=== PATIENT | female | born 1955 | race Caucasian/White ===

== ENCOUNTER 2017-05-23 17:20 | Emergency (ER) | payer OTHER ==
[~2017-05-23] VITALS: Ht 160 cm; Wt 93.4 kg
[~2017-05-23 17:20] MED LIST: BNC20 PO; BUME1TAB PO; FEXO1TAB46 PO; FLV1 PO; GLC500 PO; INSU1INJ15 SC; INSUINJ14 SC; LEVO25TA5 PO; MTH25 PO; MULTTAB5 PO; ORENCIA IV; POTA20TA16 PO; RANI150T85 PO; SAXA1TAB64 PO; SIMV-151 PO; TNR25 PO; TRIA3AER NAE
[2017-05-23 17:22] VITALS: BP 181/102; PULSE 72; TEMP 36.4; O2SAT 97; Ht 160 cm; Wt 93.4 kg
[2017-05-23] MEDS ORDERED: DIAZEPAM 5MG TAB PO STA (17:49)
[2017-05-23] MEDS ORDERED: KETOROLAC TROMETHAMINE 30 MG/ML VIAL IV STA (17:49)
--- NOTE | 2017-05-23 18:26 | EMERGENCY ROOM VISIT NOTE ---
ED Visit Note First contact with patient: 17:25 CHIEF COMPLAINT: Back pain HISTORY OF PRESENTING ILLNESS: This is a 62-year-old female who presents to the emergency department with complaint of low back pain that started yesterday. She states that the pain is in the middle of her low back, radiates to both sides, into the buttocks, and down both legs to the ankles. She states that the pain is constant, aching and occasionally sharp worse with movement, better with rest, 8/10. She has not tried any medications, ice or heat therapy for the pain she reports a history of several back surgeries involving hardware in the past, her last surgery was in [address] Whiting. She reports chronic left leg pain and weakness secondary to nerve damage from previous back injury. She denies any new numbness or weakness of the legs, saddle paresthesias, bowel or bladder dysfunction, fevers or chills. She denies getting injections in the back. She denies any recent falls or other known injury to the back, no recent heavy lifting, bending, or twisting movements she can think of that may have caused her pain. She denies any associated headaches, neck pain, chest pain, shortness of breath, abdominal pain, nausea or vomiting, diarrhea or constipation, urinary symptoms, or rash. REVIEW OF SYSTEMS: A complete 10 point review of systems was reviewed with the patient with pertinent positives and negatives as per history of present illness. All else were negative. PAST MEDICAL HISTORY: Rheumatoid arthritis, hypertension, diabetes on insulin, GERD, hyperlipidemia, hypothyroidism SOCIAL HISTORY: Lives at home. Denies tobacco use. ALLERGIES: Reviewed in chart. Of note, she reports NSAIDs cause her to have stomach upset, she does not have a true allergy to NSAIDs. PHYSICAL EXAM: CONSTITUTIONAL: Pleasant and cooperative. No acute distress, but obviously uncomfortable and in pain. Otherwise well appearing and well nourished. HEENT: Normocephalic, atraumatic. Pupils equal, round and reactive to light, EOMI. TMs normal. Pharynx normal. NECK: Supple, full active range of motion without discomfort. RESPIRATORY: Clear to auscultation bilaterally with no wheezing, crackles, rhonchi or stridor. Equal expansion bilaterally. CARDIOVASCULAR: Regular rate and rhythm with no murmurs, rubs or gallops. Normal peripheral perfusion. No edema. GASTROINTESTINAL: Soft, nontender, nondistended. No palpable masses or HSM. Bowel sounds present in all quadrants. MUSCULOSKELETAL: No muscle atrophy, erythema, or edema noted of the back. There is midline tenderness over the lumbar spinous processes. There is moderate tenderness over the paraspinous muscles bilaterally. There is no tenderness over the thoracic spine or paraspinous muscles. There are mild muscle spasms present. The patient is slow to move around with maximum tenderness with bending or twisting at the waist. Positive straight leg raise test bilaterally. INTEGUMENTARY: No rash or other significant dermatologic conditions noted. NEUROLOGIC: Alert and oriented X 4 with normal affect. No focal neurologic deficits noted. Normal sensation to light and sharp touch. Deep tendon reflexes 2+ in the lower extremities. Dorsalis pedis pulse 2+ bilaterally. Strength 5/5 and equal in the bilateral lower extremities. ED COURSE AND MEDICAL DECISION MAKING: CC: Patient presenting with complaint of low back pain DIFFERENTIAL DIAGNOSIS: Includes, but not limited to lumbar radiculopathy, sciatica, back spasm, lumbar sprain/strain, disc herniation, degenerative disc disease, surgical hardware malfunction, fracture, subluxation, among others. INTERPRETATION OF LABS: No leukocytosis, no anemia, no significant electrolyte abnormalities. UA negative. IMAGING: LUMBAR SPINE WITHOUT CT DOSE: 628.79 mGycm HISTORY: Pain Low back pain, Hx multiple surgeries, eval hardware TECHNIQUE: Multiaxial CT images of the lumbar spine were performed and reformatted in the sagittal and coronal plane without the use of contrast. A dose lowering technique was utilized adhering to the principles of ALARA. COMPARISON: 10/10/2013 FINDINGS: Similar exam compared to the prior study. Extensive postoperative changes from L2 through S1. All hardware appears to be intact and unchanged. Bony alignment is unchanged. There is no evidence for new interval or progressive process. Paraspinal soft tissues are considered unremarkable. Degenerative disc change throughout is considered stable and nonprogressive. IMPRESSION: 1. Degenerative and postoperative changes throughout the entire lumbar region. 2. All hardware is intact. 3. This study is considered to be a duplicate of the prior exam with no interval change. MEDICATION RECONCILIATION: I attest that I have personally reviewed the patient 's current medication list. INITIAL VITAL SIGNS REVIEW: I reviewed the patient's initial vital signs and interpret them as follows: T: Afebrile; BP: Hypertensive; HR: Within normal limits; RR: Within normal limits; Pulse Ox: Within normal limits on room air. Blood pressure screening: The patient was found to have an elevated blood pressure and was referred to their primary doctor for recheck and further treatment. SUMMARY: Patient was evaluated at bedside, history and physical exam performed. Patient is alert and oriented, no acute distress, but is slow to move during exam and is notably in pain, resting calmly on the stretcher. Neurologically intact on exam. Weakness of the left leg that patient reports is her baseline and not worse. Orders were placed at bedside for labs, UA, IV Toradol and PO Valium, CT lumbar spine to evaluate surgical hardware and any other abnormalities. Patient discussed with Dr. Alatorre, who agrees with my assessment and plan. Labs and imaging reviewed as above, no acute abnormality found. Patient reassessed multiple times throughout ED stay, she reports that her pain is improved after medications. Patient was updated on all results and plan for discharge, she was encouraged to follow closely with her primary care provider as well as her orthopedic spine surgeon. Rx for tramadol to manage her pain, as she states she is unable to take NSAIDs or steroids. She was encouraged to take Tylenol and use tramadol for breakthrough pain. Patient was provided with patient was also given strict return precautions should her symptoms worsen, she verbalized understanding. Patient was discharged home in good condition and ambulatory. Upon my review of vital signs, I discovered that the patient was discharged home without having repeat vital signs performed. The patient was informed of her elevated blood pressure during her stay, which was felt to be in part due to her pain, and she was encouraged to follow up with her PCP for recheck of her blood pressure. She did not endorse any concerning symptoms of chest pain, shortness of breath, headache, dizziness, vision changes, nausea or vomiting during her stay. Current/Historical Medications Scheduled Adalimumab (Humira Pen), 250 MG INJ UD Amitriptyline HCl (Amitriptyline HCl), 1 TAB PO DAILY Amlodipine (Norvasc), 5 MG PO DAILY Atorvastatin (Lipitor), 10 MG PO DAILY Bumetanide (Bumex), 1 MG PO DAILY Calcium Carbonate-Cholecalcife (Caltrate 600+D), 1 TAB PO BID Celecoxib (CeleBREX), 200 MG PO DAILY Cyclobenzaprine Hcl (Flexeril), 10 MG PO HS Diclofenac Sodium (Topical) (Voltaren 1% Top Gel), 1 APPLN TOP QID Glimepiride (Glimepiride), 1 TAB PO DAILY Insulin Aspart (Novolog), UNITS SC WM Insulin Detemir (Levemir), 30 UNITS SC QPM Levothyroxine Sodium (Synthroid), 25 MCG PO DAILY Losartan Potassium (Cozaar), 100 MG PO DAILY Metformin HCl (Metformin HCl), 1 TAB PO BID Metoprolol Tartrate (Lopressor) (Lopressor), 50 MG PO BID Multiple Vitamins W/ Minerals (Centrum Silver), 1 TAB PO DAILY Pantoprazole (Protonix), 40 MG PO TID Potassium Ext Rel (Klor-Con), 20 MEQ PO BID Scheduled PRN Hydrocodone/Acetaminophen 5MG/325MG (Delmar 5MG/325MG), 1 TABLET PO Q4 PRN for Pain Ondansetron Hcl (Zofran), 4 MG PO Q8 PRN for Nausea Tramadol (Ultram), 50 MG PO Q6H PRN for svr Allergies Coded Allergies: Pregabalin (Verified Allergy, Severe, SWELLING, 05/23/17) Rofecoxib (Verified Allergy, Unknown, RASH, 05/23/17) Meloxicam (Unverified Adverse Reaction, Unknown, ., 05/23/17) NSAIDs (Verified Adverse Reaction, Unknown, gi problems, 05/23/17) Vital Signs Date Time Temp Pulse Resp B/P (MAP) Pulse Ox O2 Delivery O2 Flow Rate FiO2 05/23/17 17:22 36.4 72 18 181/102 97 Room Air Laboratory Results 05/23/17 18:12 Red Blood Count 4.62, Mean Corpuscular Volume 79.4, Mean Corpuscular Hemoglobin 27.5, Mean Corpuscular Hemoglobin Concent 34.6, Mean Platelet Volume 9.4, Neutrophils (%) (Auto) 59.5, Lymphocytes (%) (Auto) 25.9, Monocytes (%) (Auto) 9.1, Eosinophils (%) (Auto) 4.0, Basophils (%) (Auto) 1.3, Neutrophils # (Auto) 2.69, Lymphocytes # (Auto) 1.17, Monocytes # (Auto) 0.41, Eosinophils # (Auto) 0.18, Basophils # (Auto) 0.06 05/23/17 18:12 Test 05/23/17 18:12 White Blood Count 4.52 K/uL (4.8-10.8) Red Blood Count 4.62 M/uL (4.2-5.4) Hemoglobin 12.7 g/dL (12.0-16.0) Hematocrit 36.7 % (37-47) Mean Corpuscular Volume 79.4 fL (80-100) Mean Corpuscular Hemoglobin 27.5 pg (25-34) Mean Corpuscular Hemoglobin Concent 34.6 g/dl (32-36) Platelet Count 160 K/uL (130-400) Mean Platelet Volume 9.4 fL (7.4-10.4) Neutrophils (%) (Auto) 59.5 % Lymphocytes (%) (Auto) 25.9 % Monocytes (%) (Auto) 9.1 % Eosinophils (%) (Auto) 4.0 % Basophils (%) (Auto) 1.3 % Neutrophils # (Auto) 2.69 K/uL (1.4-6.5) Lymphocytes # (Auto) 1.17 K/uL (1.2-3.4) Monocytes # (Auto) 0.41 K/uL (0.11-0.59) Eosinophils # (Auto) 0.18 K/uL (0-0.5) Basophils # (Auto) 0.06 K/uL (0-0.2) RDW Standard Deviation 42.8 fL (36.4-46.3) RDW Coefficient of Variation 14.8 % (11.5-14.5) Immature Granulocyte % (Auto) 0.2 % Immature Granulocyte # (Auto) 0.01 K/uL (0.00-0.02) Urine Color YELLOW Urine Appearance CLOUDY (CLEAR) Urine pH 6.0 (4.5-7.5) Urine Specific [place] 1.017 (1.000-1.030) Urine Protein NEG (NEG) Urine Glucose (UA) 1+ (NEG) Urine Ketones NEG (NEG) Urine Occult Blood NEG (NEG) Urine Nitrite NEG (NEG) Urine Bilirubin NEG (NEG) Urine Urobilinogen POS (NEG) Urine Leukocyte Esterase NEG (NEG) Urine WBC (Auto) 1-5 /hpf (0-5) Urine RBC (Auto) 0-4 /hpf (0-4) Urine Hyaline Casts (Auto) 0 /lpf (0-5) Urine Epithelial Cells (Auto) >30 /lpf (0-5) Urine Bacteria (Auto) NEG (NEG) Urine Pathogenic Casts /lpf (0) Anion Gap 5.0 mmol/L (3-11) Est Creatinine Clear Calc Drug Dose 65.1 ml/min Estimated GFR () 72.9 Estimated GFR (Non- 62.9 BUN/Creatinine Ratio 14.9 (10-20) Calcium Level 9.3 mg/dl (8.5-10.1) Medications Administered Medications (Trade) Dose Ordered Sig/Zhao Route Start Time Stop Time Status Last Admin Dose Admin Ketorolac Tromethamine (Toradol Inj) 15 mg NOW STAT IV 05/23/17 17:49 05/23/17 17:53 DC 05/23/17 18:20 15 MG Diazepam (Valium Tab) 10 mg NOW STAT PO 05/23/17 17:49 05/23/17 17:53 DC 05/23/17 17:49 10 MG Tramadol HCl (Ultram Home Pack) 1 homepack UD ONCE PO 05/23/17 20:00 05/23/17 20:01 DC 05/23/17 20:00 1 HOMEPACK Tramadol HCl (Ultram Tab) 50 mg NOW STAT PO 05/23/17 19:47 05/23/17 19:49 DC 05/23/17 20:36 50 MG Departure Information Impression Primary Impression: Lumbar radiculopathy, acute Dispostion Home / Self-Care Condition GOOD Prescriptions Tramadol (Ultram) 50 Mg Tab 50 MG PO Q6H Y for svr, #12 TAB Prov: Christina Walters, SENIOR LINUX SYSTEMS ADMINISTRATOR 05/23/17 Referrals Pierre Castro D.O. (PCP) Abdirahman Whiting D.O. Patient Instructions ED Back Care Tips, ED Exercises Lumbar Muscles, ED Sciatica, [facility] Additional Instructions You have been treated in the Emergency Department your back pain. Laboratory results and imaging studies have ruled out any emergent causes for your symptoms which would warrant admission or surgery. Take it easy for the next few days, no strenuous activity, heavy lifting, or bending/twisting motions, to allow your back to rest. Alternate heat and ice for comfort. After heat, you may do gentle stretching and massage to the low back. You have been prescribed tramadol to be used 1 tablet every 6 hours as needed for SEVERE pain. This medication may make you drowsy, do not drive, operate machinery, or drink alcohol while you are taking. This medication is a controlled substance and cannot be refilled by the emergency department. If you need additional pain medication beyond what has been prescribed today, you will need to see your primary care provider or orthopedic surgeon. For pain control, you can use the following [id number] medicines (if >12 yo): - Regular strength (325mg/tab) Tylenol (acetaminophen) 2 tabs every 4-6 hours as needed. Do not exceed 10 tablets in a 24 hour period. Avoid taking more than 3000 mg of Tylenol per day. This includes any other sources of acetaminophen you may take on a regular basis. Please follow-up with your primary care provider and your orthopedic spine surgeon, Dr. Whiting, in the next few days if your back pain is not improving. You may benefit from physical therapy. Please return to the ER if any problems with bowel or bladder function, numbness in your groin, high fevers, severe abdominal pain or worsening back pain, or if loss of feeling/movement of legs. Work Instructions Return To Work: 2 days
[2017-05-23 18:33] LABS: BASO % 1.3 %; BASO ABS # 0.06 K/uL (0-0.2); EOS ABS # 0.18 K/uL (0-0.5); HEMATOCRIT 36.7 % (37-47); HEMOGLOBIN 12.7 g/dL (12.0-16.0); IG# 0.01 K/uL (0.00-0.02); LYMPH % 25.9 %; LYMPH ABS # 1.17 K/uL (1.2-3.4); MEAN CELL VOLUME 79.4 fL (80-100); MEAN CORPUSCULAR HEMOGLOBIN 27.5 pg (25-34); MEAN CORPUSCULAR HGB CONC 34.6 g/dl (32-36); MEAN PLATELET VOLUME 9.4 fL (7.4-10.4); MONO % 9.1 %; MONO ABS # 0.41 K/uL (0.11-0.59); NEUT % 59.5 %; NEUT ABS # 2.69 K/uL (1.4-6.5); PLATELET COUNT 160 K/uL (130-400); RED CELL DISTRIBUTION WIDTH CV 14.8 % (11.5-14.5); RED CELL DISTRIBUTION WIDTH SD 42.8 fL (36.4-46.3); WHITE BLOOD COUNT 4.52 K/uL (4.8-10.8)
[2017-05-23] MEDS ORDERED: CYCL10TA6 PO (18:41)
[2017-05-23] MEDS ORDERED: GLC/500 PO (18:41)
[2017-05-23] MEDS ORDERED: LVMI SC (18:41)
[2017-05-23] MEDS ORDERED: ONDA4TAB46 PO (18:41)
[2017-05-23] MEDS ORDERED: NVLG SC (18:41)
[2017-05-23] MEDS ORDERED: HYDR-5688 PO (18:41)
[2017-05-23] MEDS ORDERED: POTA20TA16 PO (18:41)
[2017-05-23] MEDS ORDERED: DICL1GEL12 TOP (18:41)
[2017-05-23] MEDS ORDERED: LOSA1TAB38 PO (18:41)
[2017-05-23] MEDS ORDERED: AMT10 PO (18:41)
[2017-05-23] MEDS ORDERED: PANT40TA PO (18:41)
[2017-05-23] MEDS ORDERED: MULTCHW PO (18:41)
[2017-05-23] MEDS ORDERED: METO50TA16 PO (18:41)
[2017-05-23] MEDS ORDERED: CLB/200 PO (18:41)
[2017-05-23] MEDS ORDERED: BUME1TAB PO (18:41)
[2017-05-23] MEDS ORDERED: ATOR10TA82 PO (18:41)
[2017-05-23] MEDS ORDERED: AMLO-110 PO (18:41)
[2017-05-23] MEDS ORDERED: CALC-354 PO (18:41)
[2017-05-23] MEDS ORDERED: ADAL40KI INJ (18:41)
[2017-05-23] MEDS ORDERED: LEVO25TA PO (18:41)
[2017-05-23] MEDS ORDERED: GLIM4TAB2 PO (18:43)
[2017-05-23] MEDS ORDERED: METF850T10 PO (18:43)
--- NOTE | 2017-05-23 18:48 | DIAGNOSTIC IMAGING REPORT ---
LUMBAR SPINE WITHOUT CT DOSE: 628.79 mGycm HISTORY: Pain Low back pain, Hx multiple surgeries, eval hardware TECHNIQUE: Multiaxial CT images of the lumbar spine were performed and reformatted in the sagittal and coronal plane without the use of contrast. A dose lowering technique was utilized adhering to the principles of ALARA. COMPARISON: 10/10/2013 FINDINGS: Similar exam compared to the prior study. Extensive postoperative changes from L2 through S1. All hardware appears to be intact and unchanged. Bony alignment is unchanged. There is no evidence for new interval or progressive process. Paraspinal soft tissues are considered unremarkable. Degenerative disc change throughout is considered stable and nonprogressive. IMPRESSION: 1. Degenerative and postoperative changes throughout the entire lumbar region. 2. All hardware is intact. 3. This study is considered to be a duplicate of the prior exam with no interval change. The above report was generated using voice recognition software. It may contain grammatical, syntax or spelling errors. Electronically signed by: Jensen Lion M.D. 05/23/2017 6:47 PM Dictated Date/Time: 05/23/2017 6:43 PM
[2017-05-23 18:50] LABS: CALCIUM 9.3 mg/dl (8.5-10.1); CREATININE 0.96 mg/dl (0.60-1.20); POTASSIUM 3.8 mmol/L (3.5-5.1)
[2017-05-23] MEDS ORDERED: TRAM-10 PO (19:45)
[2017-05-23] MEDS ORDERED: TRAMADOL HCL 50 MG TAB PO STA (19:47)
--- NOTE | 2017-05-23 19:51 | EMERGENCY ROOM VISIT NOTE ---
ED Visit Note First contact with patient: 17:25 Patient seen and evaluated following discussion with the ENTRY TABLE OPERATOR. Patient aware of the results was agreeable with close follow-up with her spine surgeon. Patient will have an INR performed due to spinal stimulator. Patient with a long-standing history of low back pain as well as paresthesias. No other evidence of urinary or GI pathology. Labs reassuring, vital signs stable. Patient comfortable with evaluation here as well as plan for discharge with follow-up as an outpatient.
[2017-05-23] MEDS ORDERED: TRAMADOL HCL 50 MG HOME PACK PO ONE (20:00)
== END 2017-05-23 20:38 | disposition home or self-care (01) ==
LOC: C.EDB 17:21 → C.EDC 20:38
DX: M54.16 Radiculopathy, lumbar region (principal); M79.605 Pain in left leg; G89.29 Other chronic pain; I10 Essential (primary) hypertension; E11.9 Type 2 diabetes mellitus without complications; E78.5 Hyperlipidemia, unspecified; E03.9 Hypothyroidism, unspecified; M06.9 Rheumatoid arthritis, unspecified; K21.9 Gastro-esophageal reflux disease without esophagitis; Z79.4 Long term (current) use of insulin; Z79.84 Long term (current) use of oral hypoglycemic drugs; Z88.8 Allergy status to other drugs, medicaments and biological substances; Z88.6 Allergy status to analgesic agent; Z96.9 Presence of functional implant, unspecified

== ENCOUNTER 2017-06-03 15:28 | Emergency (ER) | payer OTHER ==
[~2017-06-03] VITALS: Ht 160 cm; Wt 92.0 kg
[~2017-06-03 15:28] MED LIST changes: +ADAL40KI INJ; -BNC20 PO; -BUME1TAB PO; -FEXO1TAB46 PO; -FLV1 PO; -GLC500 PO; -INSU1INJ15 SC; -INSUINJ14 SC; -LEVO25TA5 PO; -MTH25 PO; -MULTTAB5 PO; -ORENCIA IV; -POTA20TA16 PO; -RANI150T85 PO; -SAXA1TAB64 PO; -SIMV-151 PO; -TNR25 PO; +TRAM-10 PO; -TRIA3AER NAE
[2017-06-03 15:47] VITALS: TEMP 36.3; Ht 160 cm; Wt 92.0 kg
[2017-06-03] MEDS ORDERED: ONDANSETRON INJ 2 MG/ML 2 ML VIAL IV STA (16:38)
[2017-06-03] MEDS ORDERED: SODIUM CHLORIDE 0.9% 1000ML 1,000 ML IV STA (16:38)
[2017-06-03] MEDS ORDERED: HYDROmorphone INJ 1 MG/ML SYR IV STA (16:38)
[2017-06-03] MEDS ORDERED: SODIUM CHLORIDE 0.9% 1000ML 250 ML IV STA (16:38)
--- NOTE | 2017-06-03 16:53 | DIAGNOSTIC IMAGING REPORT ---
CHEST ONE VIEW PORTABLE CLINICAL HISTORY: CHEST PAIN dyspnea COMPARISON STUDY: No previous studies for comparison. FINDINGS: Minimal platelike atelectasis left base. Lungs otherwise appear clear. Diaphragms are smooth. There is a bio stimulator overlying the low thoracic region. IMPRESSION: Minimal platelike atelectasis left base. Otherwise negative study. The above report was generated using voice recognition software. It may contain grammatical, syntax or spelling errors. Electronically signed by: Jensen Lion M.D. 06/03/2017 4:52 PM Dictated Date/Time: 06/03/2017 4:51 PM
[2017-06-03 17:26] LABS: BASO % 1.7 %; EOS % 3.6 %; EOS ABS # 0.22 K/uL (0-0.5); HEMATOCRIT 35.3 % (37-47); HEMOGLOBIN 12.2 g/dL (12.0-16.0); IG# 0.03 K/uL (0.00-0.02); LYMPH % 20.7 %; LYMPH ABS # 1.25 K/uL (1.2-3.4); MEAN CORPUSCULAR HEMOGLOBIN 27.3 pg (25-34); MEAN CORPUSCULAR HGB CONC 34.6 g/dl (32-36); MEAN PLATELET VOLUME 8.8 fL (7.4-10.4); MONO % 7.3 %; MONO ABS # 0.44 K/uL (0.11-0.59); NEUT % 66.2 %; PLATELET COUNT 217 K/uL (130-400); RED CELL DISTRIBUTION WIDTH CV 14.1 % (11.5-14.5); WHITE BLOOD COUNT 6.04 K/uL (4.8-10.8)
--- NOTE | 2017-06-03 17:44 | EMERGENCY ROOM VISIT NOTE ---
History Report prepared by Adwoa: Nancie Hammonds Under the Supervision of: Dr. Hoang Mckeon M.D. First contact with patient: 16:22 Chief Complaint: ABDOMINAL PAIN Stated Complaint: PAIN, PRESSURE IN ABDOMIN AND ENTIRE BODY Nursing Triage Summary: Patient presents to triage via wheelchair, states "I was here a week ago Friday with a lot of pain in my lower back and legs. Today, the pain is all over, even up into my shoulders. I haven't had complete relief since I was seen here. I am having a lot of pressure in my lower abdomen and rectum that started today. I haven't been eating much." Last BM was "a little bit this morning." History of Present Illness The patient is a 62 year old female who presents to the Emergency Room with complaints of persistent body aches starting 1 week ago. She reports aching pains all over her body and a stabbing pain in her buttocks. She was seen 10 days ago for pain in her lower back and legs. This pain seems to have spread throughout her body. She has some lower abdominal pain which is worse on the right side. She is having intermittent headache which she attributes to her elevated blood pressure. She is having some urinary frequency, but no burning. She has had a decreased appetite. She denies any nausea, vomiting, fever, change in bowel movement, chest pain, SOB, cough, or rash. She denies any fall or injury. She reports numbness and weakness to her left leg which is not new. 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 She has a history of appendectomy, cholecystectomy, and hysterectomy. She still has 1 ovary. She has a history of kidney cyst, hypertension, diabetes, gastroparesis, and arthritis. Her blood sugar was 154 this morning. She has been keeping up with her fluids. She is taking all of her medications. She was recently started on Humira. Source of History: patient Onset: 1 week ago Position: other (body) Quality: ache Timing: other (persistent) Associated Symptoms: + headache, + abdominal pain, + urinary symptoms, No chest pain, No SOB, No nausea, No vomiting, No rash Review of Systems See HPI for pertinent positives & negatives. A total of 10 systems reviewed and were otherwise negative. Past Medical & Surgical Medical Problems: (1) Arthritis (2) Diabetes (3) Gastroparesis (4) Hypertension Surgical Problems: (1) S/P appendectomy (2) S/P cholecystectomy (3) S/P hysterectomy Old medical records were reviewed. Nurse's notes were reviewed and I agree with. Family History Diabetes mellitus FH: heart disease FH: lung disease FHx: cancer FHx: gallbladder disease Hypertension Kidney disease Kidney stones Social History Smoking Status: Never Smoker Marital Status: Housing Status: lives with significant other Current/Historical Medications Scheduled Adalimumab (Humira Pen), 250 MG INJ UD Amitriptyline HCl (Amitriptyline HCl), 1 TAB PO DAILY Amlodipine (Norvasc), 5 MG PO DAILY Atorvastatin (Lipitor), 10 MG PO DAILY Calcium Carbonate-Cholecalcife (Caltrate 600+D), 1 TAB PO BID Celecoxib (CeleBREX), 200 MG PO DAILY Cyclobenzaprine Hcl (Flexeril), 10 MG PO HS Glimepiride (Glimepiride), 1 TAB PO DAILY Insulin Aspart (Novolog), UNITS SC WM Insulin Detemir (Levemir), 35 UNITS SC QPM Levothyroxine Sodium (Synthroid), 25 MCG PO DAILY Losartan Potassium (Cozaar), 100 MG PO DAILY Metformin HCl (Metformin HCl), 1 TAB PO BID Metoprolol Tartrate (Lopressor) (Lopressor), 50 MG PO BID Multiple Vitamins W/ Minerals (Centrum Silver), 1 TAB PO DAILY Pantoprazole (Protonix), 40 MG PO TID Potassium Ext Rel (Klor-Con), 20 MEQ PO BID Scheduled PRN Bumetanide (Bumex), 1 MG PO DAILY PRN for EXCESS FLUID Diclofenac Sodium (Topical) (Voltaren 1% Top Gel), 1 APPLN TOP QID PRN for Pain Hydrocodone/Acetaminophen 5MG/325MG (Flushing 5MG/325MG), 1 TABLET PO Q4 PRN for Pain Ondansetron Hcl (Zofran), 4 MG PO Q8 PRN for Nausea Tramadol (Ultram), 50 MG PO Q6H PRN for svr Tramadol (Ultram), 1-2 TABS PO Q6 PRN for Pain Allergies Coded Allergies: Pregabalin (Verified Allergy, Severe, SWELLING, 06/03/17) Rofecoxib (Verified Allergy, Unknown, RASH, 06/03/17) Meloxicam (Unverified Adverse Reaction, Unknown, ., 06/03/17) NSAIDs (Verified Adverse Reaction, Unknown, gi problems, 06/03/17) Physical Exam Vital Signs Date Time Temp Pulse Resp B/P (MAP) Pulse Ox O2 Delivery O2 Flow Rate FiO2 06/03/17 19:59 80 16 144/81 96 06/03/17 17:38 82 14 142/79 93 Room Air 06/03/17 15:47 36.3 99 20 181/100 99 Room Air Physical Exam General: Mildly uncomfortable appearing older female in no acute distress. HEENT: Normal cephalic atraumatic. Pupils are equal round and reactive to light. Extraocular movements are intact. Oropharynx is pink with moist mucous membranes. No swelling of the mouth lips or tongue. Neck: Supple with a midline trachea. No meningeal signs or stiffness, no JVD or bruits. No Stridor. Chest: Clear to auscultation bilaterally. No wheezes or rhonchi. No increased work of breathing. Heart: regular rate and rhythm. Abdomen: Soft, mildly tender in the RLQ, nondistended without rebound guarding or rigidity. Extremities: No cyanosis clubbing or edema. No calf tenderness or assymetry Spine/Back. Non tender to palpation. No CVA tenderness Skin: Good turgor without rashes. Neurologic exam: Cranial nerves two through 12 are intact. Weakness with hip extension on the left which is chronic. Medical Decision & Procedures ER Provider Diagnostic Interpretation: X-ray results as stated below per interpretation by me and the radiologist. Radiology results as stated below per my review and radiologist interpretation: CHEST ONE VIEW PORTABLE CLINICAL HISTORY: CHEST PAIN dyspnea COMPARISON STUDY: No previous studies for comparison. FINDINGS: Minimal platelike atelectasis left base. Lungs otherwise appear clear. Diaphragms are smooth. There is a bio stimulator overlying the low thoracic region. IMPRESSION: Minimal platelike atelectasis left base. Otherwise negative study. The above report was generated using voice recognition software. It may contain grammatical, syntax or spelling errors. Electronically signed by: Jensen Lion M.D. 06/03/2017 4:52 PM Dictated Date/Time: 06/03/2017 4:51 PM ABD/PELVIS WITHOUT FOR STONE CT DOSE: 1558.24 mGy.cm HISTORY: Flank pain eval for stone, ovarian pathology TECHNIQUE: Multiaxial CT images of the abdomen and pelvis were performed without the use of intravenous and oral contrast according to the standard department stone protocol. A dose lowering technique was utilized adhering to the principles of ALARA. COMPARISON STUDY: 10/10/2013 FINDINGS: Mild bibasilar atelectatic change. Configuration of liver spleen and pancreas are unremarkable. Left kidney is negative for hydronephrosis. Right kidney is also negative for hydronephrosis. Mild interval increase in size of a right renal cyst now measuring 10 cm. Previous measurement was 8 cm. The bowel pattern is nonobstructive. Scattered colonic diverticuli. No evidence for diverticulitis. Patient is post appendectomy, cholecystectomy, and hysterectomy. Stable operative changes of the spine are noted. IMPRESSION: 1. Right renal cyst mildly increased in size compared to the prior study. 2. No acute process of the abdomen or pelvis post appendectomy, cholecystectomy, hysterectomy, and lumbar laminectomy. The above report was generated using voice recognition software. It may contain grammatical, syntax or spelling errors. Electronically signed by: Jensen Lion M.D. 06/03/2017 5:40 PM Dictated Date/Time: 06/03/2017 5:34 PM Laboratory Results 06/03/17 17:11 Red Blood Count 4.47, Mean Corpuscular Volume 79.0, Mean Corpuscular Hemoglobin 27.3, Mean Corpuscular Hemoglobin Concent 34.6, Mean Platelet Volume 8.8, Neutrophils (%) (Auto) 66.2, Lymphocytes (%) (Auto) 20.7, Monocytes (%) (Auto) 7.3, Eosinophils (%) (Auto) 3.6, Basophils (%) (Auto) 1.7, Neutrophils # (Auto) 4.00, Lymphocytes # (Auto) 1.25, Monocytes # (Auto) 0.44, Eosinophils # (Auto) 0.22, Basophils # (Auto) 0.10 06/03/17 17:11 Test 06/03/17 17:11 06/03/17 17:15 White Blood Count 6.04 K/uL (4.8-10.8) Red Blood Count 4.47 M/uL (4.2-5.4) Hemoglobin 12.2 g/dL (12.0-16.0) Hematocrit 35.3 % (37-47) Mean Corpuscular Volume 79.0 fL (80-100) Mean Corpuscular Hemoglobin 27.3 pg (25-34) Mean Corpuscular Hemoglobin Concent 34.6 g/dl (32-36) Platelet Count 217 K/uL (130-400) Mean Platelet Volume 8.8 fL (7.4-10.4) Neutrophils (%) (Auto) 66.2 % Lymphocytes (%) (Auto) 20.7 % Monocytes (%) (Auto) 7.3 % Eosinophils (%) (Auto) 3.6 % Basophils (%) (Auto) 1.7 % Neutrophils # (Auto) 4.00 K/uL (1.4-6.5) Lymphocytes # (Auto) 1.25 K/uL (1.2-3.4) Monocytes # (Auto) 0.44 K/uL (0.11-0.59) Eosinophils # (Auto) 0.22 K/uL (0-0.5) Basophils # (Auto) 0.10 K/uL (0-0.2) RDW Standard Deviation 40.0 fL (36.4-46.3) RDW Coefficient of Variation 14.1 % (11.5-14.5) Immature Granulocyte % (Auto) 0.5 % Immature Granulocyte # (Auto) 0.03 K/uL (0.00-0.02) Urine Color YELLOW Urine Appearance CLEAR (CLEAR) Urine pH 5.0 (4.5-7.5) Urine Specific [place] 1.026 (1.000-1.030) Urine Protein NEG (NEG) Urine Glucose (UA) 3+ (NEG) Urine Ketones NEG (NEG) Urine Occult Blood NEG (NEG) Urine Nitrite NEG (NEG) Urine Bilirubin NEG (NEG) Urine Urobilinogen NEG (NEG) Urine Leukocyte Esterase NEG (NEG) Anion Gap 7.0 mmol/L (3-11) Est Creatinine Clear Calc Drug Dose 62.0 ml/min Estimated GFR () 69.4 Estimated GFR (Non- 59.9 BUN/Creatinine Ratio 14.4 (10-20) Calcium Level 9.0 mg/dl (8.5-10.1) Total Bilirubin 0.6 mg/dl (0.2-1) Direct Bilirubin 0.1 mg/dl (0-0.2) Aspartate Amino Transf (AST/SGOT) 10 U/L (15-37) Alanine Aminotransferase (ALT/SGPT) 17 U/L (12-78) Alkaline Phosphatase 82 U/L (45-117) Total Creatine Kinase 35 U/L (26-192) Creatine Kinase MB 0.9 ng/ml (0.5-3.6) Creatine Kinase MB Ratio 2.6 (0-3.0) Total Protein 7.6 gm/dl (6.4-8.2) Albumin 3.6 gm/dl (3.4-5.0) Lipase 82 U/L (73-393) Thyroid Stimulating Hormone (TSH) 3.160 uIu/ml (0.300-4.500) Bedside Troponin I < 0.030 ng/ml (0-0.045) Laboratory studies as stated above per my review. Medications Administered Medications (Trade) Dose Ordered Sig/Zhao Route Start Time Stop Time Status Last Admin Dose Admin Sodium Chloride 250 ml @ 999 mls/hr Q16M STAT IV 06/03/17 16:38 06/03/17 16:53 DC 06/03/17 17:07 999 MLS/HR Sodium Chloride 1,000 ml @ 100 mls/hr Q10H STAT IV 06/03/17 16:38 06/03/17 20:15 DC 06/03/17 17:07 100 MLS/HR Hydromorphone HCl (Dilaudid Inj) 1 mg NOW STAT IV 06/03/17 16:38 06/03/17 16:43 DC 06/03/17 17:07 1 MG Ondansetron HCl (Zofran Inj) 4 mg NOW STAT IV 06/03/17 16:38 06/03/17 16:43 DC 06/03/17 17:06 4 MG ECG Per My Interpretation Indication: back/shoulder pain Rate (beats per minute): 79 Rhythm: normal sinus Findings: no acute ischemic change, no ectopy, other (LVH) ED Course 1627: Past medical records reviewed. The patient was evaluated in room B2, and a complete history and physical examination were performed. 1638: Zofran Inj 4 mg IV, Dilaudid Inj 1 mg IV, NSS 1000 ml @ 100 mls/hr IV, NSS 250 ml @ 999 mls/hr IV. 1734: I spoke with the pharmacist. He reports that the patient's symptoms can be a common side effect of Humira. 1739: I reevaluated the patient. She is resting comfortably, in no pain. 1807: Upon reevaluation, the patient is still sleepy. I discussed the results and treatment plan with her. She verbalized agreement of the treatment plan. The patient was discharged home. Medical Decision Differentials include, but are not limited to; medication side effect, infection , intraabdominal process, anemia, electrolyte or metabolic abnormality. This patient comes in as described above. She was placed in room B2. She is here for treatment and evaluation of diffuse body aches. She was recently started on Humira and has had 3 shots. She is scheduled see her doctor on Friday. She looks well she is afebrile. She was evaluated last week with back pain and a negative CAT scan. I did a CAT scan of her head and abdomen. EKG multiple blood testing was obtained she was given IV Dilaudid as well as IV Zofran is feeling a lot better. Her is at the bedside will be driving. She has no acute electrolyte or metabolic abnormalities. She has nothing to suggest infection or sepsis. CAT scan of her abdomen was unremarkable. Urinalysis was unremarkable. EKG was unremarkable. Her workup was unremarkable and she is feeling better after receiving IV Dilaudid. She has an appointment to see her doctor on Friday. I think this is most likely related to Humira. I discussed it with the pharmacist who agrees that this is a common side effect. I encouraged her to discuss this with her doctor before she has another dose. She was given a small prescription for Ultram which is working well for her in the past. She should rest and drink plenty of fluids. She was warned that Ultram could make her drowsy and do not take before drinking, driving, working. She should return to the ER if: increasing pain, fever of chills, worsening of symptoms, any new problems or concerns. The patient has been happy with the plan and she was discharged home [place] Drug Monitoring Program Search Results: patient reviewed within database, no issues identified Medication Reconcilliation Current Medication List: was personally reviewed by me Blood Pressure Screening Patient's blood pressure: Elevated blood pressure Blood pressure disposition: Elevated BP felt to be situational Impression Primary Impression: Myalgia Additional Impression: Medication side effect Scribe Attestation The scribe's documentation has been prepared under my direction and personally reviewed by me in its entirety. I confirm that the note above accurately reflects all work, treatment, procedures, and medical decision making performed by me. Departure Information Dispostion Home / Self-Care Prescriptions Tramadol (Ultram) 50 Mg Tab 1-2 TABS PO Q6 Y for Pain, #15 TAB Prov: Hoang Mckeon M.D. 06/03/17 Referrals Pierre Castro D.O. (PCP) Forms Call Back Authorization, HOME CARE DOCUMENTATION FORM, IMPORTANT VISIT INFORMATION Patient Instructions [facility] Additional Instructions Rest. Drink plenty of fluids. Return if: worsening of symptoms, increasing pain, fever, any new problems or concerns Follow-up with your doctor, keep your appointment on Friday and do not take your Humura until you check with your doctor For pain, may use Ultram/tramadol 50 mg, 1 or 2 pills every 4-6 hours as needed. This medicine can make you drowsy do not take before drinking, driving , working. Do not take with any other sedating medications. Problem Qualifiers
[2017-06-03 17:48] LABS: ALBUMIN 3.6 gm/dl (3.4-5.0); POTASSIUM 3.4 mmol/L (3.5-5.1)
[2017-06-03 17:59] LABS: CKMB 0.9 ng/ml (0.5-3.6); TOTAL PROTEIN 7.6 gm/dl (6.4-8.2)
[2017-06-03] MEDS ORDERED: TRAM-10 PO (18:13)
[2017-06-03] MEDS ORDERED: HYDR-5688 PO (18:41)
[2017-06-03] MEDS ORDERED: PANT40TA PO (18:41)
[2017-06-03] MEDS ORDERED: AMT10 PO (18:41)
[2017-06-03] MEDS ORDERED: LOSA1TAB38 PO (18:41)
[2017-06-03] MEDS ORDERED: DICL1GEL12 TOP (18:41)
[2017-06-03] MEDS ORDERED: POTA20TA16 PO (18:41)
[2017-06-03] MEDS ORDERED: ONDA4TAB46 PO (18:41)
[2017-06-03] MEDS ORDERED: METO50TA16 PO (18:41)
[2017-06-03] MEDS ORDERED: AMLO-110 PO (18:41)
[2017-06-03] MEDS ORDERED: CLB/200 PO (18:41)
[2017-06-03] MEDS ORDERED: ATOR10TA82 PO (18:41)
[2017-06-03] MEDS ORDERED: CALC-354 PO (18:41)
[2017-06-03] MEDS ORDERED: CYCL10TA6 PO (18:41)
[2017-06-03] MEDS ORDERED: LVMI SC (18:41)
[2017-06-03] MEDS ORDERED: LEVO25TA PO (18:41)
[2017-06-03] MEDS ORDERED: NVLG SC (18:41)
[2017-06-03] MEDS ORDERED: MULTCHW PO (18:41)
[2017-06-03] MEDS ORDERED: BUME1TAB PO (18:41)
[2017-06-03] MEDS ORDERED: GLIM4TAB2 PO (18:43)
[2017-06-03] MEDS ORDERED: METF850T10 PO (18:43)
[2017-06-03 19:59] VITALS: BP 144/81; PULSE 80; O2SAT 96
== END 2017-06-03 20:00 | disposition home or self-care (01) ==
LOC: C.EDB 15:30
DX: M79.1 Myalgia (principal); R10.813 Right lower quadrant abdominal tenderness; T39.4X5A Adverse effect of antirheumatics, not elsewhere classified, initial encounter; I10 Essential (primary) hypertension; E11.43 Type 2 diabetes mellitus with diabetic autonomic (poly)neuropathy; K31.84 Gastroparesis; Z79.4 Long term (current) use of insulin; M19.90 Unspecified osteoarthritis, unspecified site; Z90.49 Acquired absence of other specified parts of digestive tract; Z88.8 Allergy status to other drugs, medicaments and biological substances; Z88.6 Allergy status to analgesic agent

== ENCOUNTER 2018-08-17 12:28 | Inpatient (IN) ==
--- OUTSIDE RECORDS SUMMARY | 2018-08-17 12:31 | External Medical Summary | Continuity of Care Document ---
:1955 Author Name Manuela Cheema, Provider Address Unavailable Unavailable , Care Team Providers Name Role Phone Breezy LORENZO M.D., E. PCarmelo Unavailable [email or web address] Unavailable Unavailable Unavailable Unavailable Unavailable Assessments Assessed Problems:Carpal tunnel syndrome, bilateral Problems Carpal tunnel syndrome, bilateral (354.0) (G56.03) Allergies and Adverse Reactions Allergy history not documented Medications Medications not documented Procedures Procedures not documented Immunizations Immunizations not documented Plan of Treatment Planned Observations Planned Goals not documented Results No Known Results Results not documented Encounters Appointment; Gena Tijerina III, M.D. 15-Dec-2017 15:00 Encounter Diagnosis: Problem not documented
--- NOTE | 2018-08-17 13:13 | XRay Report ---
SINGLE VIEW CHEST CLINICAL HISTORY: Atypical chest pain. FINDINGS: An AP, portable, upright chest radiograph is compared to study dated 06/03/2017. The examina tion is degraded by portable technique and patient rotation. The cardiomediastinal silhouette is unr emarkable. The lungs and pleural spaces are clear. No pneumothorax is seen. The skeletal structures a re osteopenic. The bony thorax is grossly intact. Intrathecal leads project over the lower thoracic s pine. IMPRESSION: No active disease in the chest. Electronically signed by: Byron Montes M.D. 08/17/2018 1:11 PM
[2018-08-17 13:15] LABS: Basophils # (auto) 0.05 K/uL (0-0.2); Basophils % (auto) 1.1 %; Eosinophils # (auto) 0.23 K/uL (0-0.5); Eosinophils % (auto) 5.1 %; Hematocrit (blood only) 38.7 % (37-47); Hemoglobin 13.7 g/dL (12.0-16.0); Immature Granulocytes # (auto) 0.01 K/uL (0.00-0.02); Immature Granulocytes % (auto) 0.2 %; Lymphocytes # (auto) 1.12 K/uL (1.2-3.4); Lymphocytes % (auto) 24.7 %; Mean Corpuscular Hgb Conc 35.4 g/dL (32-36); Mean Corpuscular Volume 80.3 fL (80-100); Mean Platelet Volume 9.5 fL (7.4-10.4); Monocytes # (auto) 0.46 K/uL (0.11-0.59); Monocytes % (auto) 10.2 %; Neutrophils # (auto) 2.66 K/uL (1.4-6.5); Neutrophils % (auto) 58.7 %; Platelet Count 157 K/uL (130-400); RDW Coefficient of Variation 13.7 % (11.5-14.5); RDW Standard Deviation 39.9 fL (36.4-46.3); Red Blood Count 4.82 M/uL (4.2-5.4); White Blood Count 4.53 K/uL (4.8-10.8)
[2018-08-17 13:28] LABS: D Dimer 230 ug/L FEU (0-500); INR 1.1 (0.9-1.1); Partial Thromboplastin Ratio 0.9; Partial Thromboplastin Time 24.2 Seconds (21.0-31.0)
[2018-08-17 13:34] LABS: Alanine Aminotransferase 27 U/L (12-78); Albumin Level 3.9 gm/dl (3.4-5.0); Aspartate Aminotransferase 16 U/L (15-37); BUN Creatinine Ratio 12.9 (10-20); Blood Urea Nitrogen 18 mg/dl (7-18); Carbon Dioxide 26 mmol/L (21-32); Chloride 104 mmol/L (98-107); Creatinine Clr Calc Pharmacy 46.1 ml/min; Est GFR (African American) 47.5; Glucose 275 mg/dl (70-99); Potassium 3.7 mmol/L (3.5-5.1); Sodium 137 mmol/L (136-145)
[2018-08-17 13:39] LABS: Albumin Globulin Ratio 1.3 (0.9-2); Alkaline Phosphatase 58 U/L (45-117); Bilirubin,Total 0.8 mg/dl (0.2-1); Total Protein 6.9 gm/dl (6.4-8.2); Troponin I < 0.015 ng/ml (0-0.045)
--- NOTE | 2018-08-17 14:08 | CT Scan Report ---
CT SCAN OF THE BRAIN WITHOUT IV CONTRAST CLINICAL HISTORY: Blurry vision. COMPARISON STUDY: No priors. TECHNIQUE: Unenhanced axial CT scan of the brain is performed from the vertex to the skull base. A do se lowering technique was utilized adhering to the principles of ALARA. CT DOSE: 537.48 mGy.cm FINDINGS: Brain parenchyma: There is a focus of edema identified within the right occipital lobe. The overlying cortex appears preserved. There are age-related involutional changes noting mild subcortical and pe riventricular microangiopathic change. There is no hemorrhage or midline shift. No extra-axial fluid collection is seen. Ventricles, sulci, cisterns: Prominent secondary to involutional change. Intracranial vasculature: There is atherosclerotic calcification of the cavernous carotid arteries. Calvarium: Unremarkable. Sinuses and mastoids: The visualized paranasal sinuses are clear. The mastoid air cells are well pneu matized. Orbits: The bony orbits are grossly intact. IMPRESSION: 1. There is edema identified within the right occipital lobe. Although this could represent a subacut e infarct, the overlying cortex appears spared and this is atypical in appearance. A mass lesion coul d have this appearance. Correlation with a contrast-enhanced MRI is recommended for further assessmen t. 2. There is no hemorrhage or midline shift. 3. No additional foci of edema are identified. Electronically signed by: Byron Montes M.D. 08/17/2018 2:07 PM
[2018-08-17] MEDS ORDERED: ASPIRIN CHEW 324 MG PO STA (15:30)
--- NOTE | 2018-08-17 17:26 | Emergency Department Note ---
Entered by Kaci Hernandez acting as a scribe for Jonnie Méndez DO History of Present Illness General Chief complaint: Chest Pain Stated complaint: HEAVY CHEST PAIN-DISSY, BLUR VISION Source: patient History of Present Illness Provider complaint: chest pain Onset (ago): day(s) 5 Location: chest Pain Consistency: + intermittent Maximum Pain Intensity: 6 Quality: + burning and + other (tightness) Associated symptoms: + headaches and + other (blurred vision, light-headed) The patient is a 63 year old female who presents to the Emergency Department with complaints of intermittent chest pain over the last 5 days. She describes the pain as a tightness and intermittently burning. She states that 5 days ago she was not doing anything when she had the pain. She states that she had blurred vision and was feeling light-headed. She states that she also had a pounding headache at this time. The patient states that she went to [place] 5 days ago and states that she went at night. She states that she was admitted at this time and had an echocardiogram done. The patient states that she had a CT done but no MRI as she is unable to secondary to an implant in her brain. The patient states that she felt worse again, called her doctor, and was referred back to [place]. She states that she was discharged at this time. The patient reports that her blurred vision has gotten worse. The patient reports a history of diabetes, hypertension, and 4 back surgeries. She reports that she has stress tests regularly. She states that she was told that one valve was not functioning properly. She denies alcohol and tobacco use. The patient denies a history of blood clots. Home Medications Home Medications Medication Instructions Recorded Confirmed Type amitriptyline 10 mg PO HS 03/22/18 08/17/18 History atorvastatin 10 mg PO QAM 03/22/18 08/17/18 History calcium carbonate-vitamin D3 2 tab PO QAM 03/22/18 08/17/18 History [Caltrate 600 + D] cyclobenzaprine 10 mg PO HS 03/22/18 08/17/18 History diclofenac sodium 1 applic TOPICAL BID 03/22/18 08/17/18 History insulin aspart U-100 [Novolog See Rx Instructions .ROUTE .COMPLEX 03/22/18 08/17/18 History Flexpen U-100 Insulin] insulin detemir U-100 [Levemir 14 units SUBCUT QDD 03/22/18 08/17/18 History FlexTouch U-100 Insuln] levothyroxine 25 mcg PO QAM 03/22/18 08/17/18 History losartan 100 mg PO QAM 03/22/18 08/17/18 History metformin 500 mg PO TIDM 03/22/18 08/17/18 History metoprolol tartrate 75 mg PO BID 03/22/18 08/17/18 History dkfurcdc-sxl-SC-lycopen-lutein 1 tab PO QAM 03/22/18 08/17/18 History [Centrum Silver] ondansetron HCl [Zofran] 4 mg PO Q8H PRN #20 tab 03/22/18 08/17/18 Rx pantoprazole 40 mg PO QAM 03/22/18 08/17/18 History potassium chloride [Klor-Con 10] 10 meq PO QAM 03/22/18 08/17/18 History tocilizumab [Actemra] 400 mg IV MONTHLY 03/22/18 08/17/18 History acetaminophen [Tylenol] 325 mg PO Q6H PRN 08/17/18 08/17/18 History chlorthalidone 25 mg PO QAM 08/17/18 08/17/18 History fluticasone propion-salmeterol 1 inh INHALATION BID 08/17/18 08/17/18 History [Advair Diskus] gabapentin 100 mg PO HS 08/17/18 08/17/18 History ketoconazole 1 applic TOPICAL BID 08/17/18 08/17/18 History meclizine 25 mg PO BID PRN 08/17/18 08/17/18 History oxybutynin chloride 10 mg PO QAM 08/17/18 08/17/18 History Allergies Allergy/AdvReac Type Severity Reaction Status Date / Time pregabalin Allergy Severe SWELLING Verified 08/17/18 15:09 rofecoxib Allergy Intermediate RASH Verified 08/17/18 15:09 meloxicam AdvReac Intermediate Hives Verified 08/17/18 15:09 NSAIDS (Non-Steroidal AdvReac Intermediate gi problems Verified 08/17/18 15:09 Anti-Inflamma Past Med/Surg History Medical History Lumbar back pain (Acute) Hypertension (Chronic) Diabetes (Chronic) Gastroparesis (Chronic) Arthritis (Chronic) Surgical History History of root canal procedure Family History Other No significant family history Social History Feels Safe at Home: Yes Smoking Status: Never smoker Review of Systems See HPI for pertinent positives & negatives. and A total of 10 systems reviewed and were otherwise negative Physical Exam Vital Signs Vital Signs - 24 hr 08/17/18 12:38 08/17/18 13:41 08/17/18 13:43 Temperature 36.6 C Temperature Source Oral Sepsis Recent Fever Within 48 Hours No Sepsis Action Taken by Nursing No Action Required Pulse Rate 62 Pulse Rate [Apical] 56 L Pulse Rhythm Regular Pulse Strength Normal Respiratory Rate 18 16 Respiratory Effort / Characteristics Non-Labored Spontaneous Respiratory Depth Normal Respiratory Pattern Blood Pressure 158/86 H Blood Pressure [Right Arm] 156/79 H Blood Pressure Mean 110 Blood Pressure Mean [Right Arm] 104 Blood Pressure Position Lying Blood Pressure Position [Right Arm] Pulse Oximetry 97 93 96 Oxygen Delivery Method Room Air Room Air Room Air 08/17/18 13:59 08/17/18 15:03 08/17/18 16:41 Temperature Temperature Source Sepsis Recent Fever Within 48 Hours Sepsis Action Taken by Nursing Pulse Rate Pulse Rate [Apical] 50 L 53 L 50 L Pulse Rhythm Pulse Strength Respiratory Rate 16 20 20 Respiratory Effort / Characteristics Non-Labored Spontaneous Non-Labored Spontaneous Respiratory Depth Normal Normal Respiratory Pattern Regular Regular Blood Pressure Blood Pressure [Right Arm] 177/100 H 195/81 H Blood Pressure Mean Blood Pressure Mean [Right Arm] 125 119 Blood Pressure Position Blood Pressure Position [Right Arm] Lying Pulse Oximetry 97 100 Oxygen Delivery Method Room Air Room Air GENERAL: Patient is awake, alert, and in no acute distress.Patient is resting comfortably and showing no signs of anxiety EYES: The conjunctivae are clear. The pupils are round and reactive. EARS, NOSE, MOUTH AND THROAT: The nose is without any evidence of any deformity. Mucous membranes are moist.Tongue is midline NECK: The neck is nontender and supple. RESPIRATORY: Normal respiratory effort is noted. There is no evidence of wheezing rhonchi or rales to auscultation. CARDIOVASCULAR: Regular rate and rhythm noted. There no murmurs rubs or gallops normal S1 normal S2 GASTROINTESTINAL: The abdomen is soft. Bowel sounds are present in all quadrants. Abdomen is nontender. MUSCULOSKELETAL/EXTREMITIES: There is no evidence of gross deformity. Full range of motion is noted in the hips and shoulders. SKIN: There is no obvious evidence of any rash. There are no petechiae, pallor or cyanosis noted. NEUROLOGIC: Patient is awake alert and oriented x3. Strength is symmetric. Patellar reflexes are 2+ bilaterally. Course 1359: The patient was evaluated in room A12B. A history and physical were performed. 1548: I discussed the patient's case with Dr. Tamir Harris who will evaluate the patient for further management. 1555: I updated the patient who verbalized agreement and understanding of the treatment plan. Consultations Consultation #1: Dr. Tamir Harris Time: 15:48 Administered Medications Discontinued Medications Aspirin (Aspirin) 324 mg PO NOW STA Stop: 08/17/18 15:31 Last Admin: 08/17/18 15:36 Dose: 324 mg Documented by: [id number] Medical Decision Making Differential Diagnosis Differential diagnosis: Etiologies such as shingles, musculoskeletal pain, pericarditis, myocarditis, cardiac ischemia, pericardial tamponade, pneumonia, pneumothorax, pleural effusion, hemothorax, pleurisy, aortic pathology, pulmonary embolism, intra- abdominal process, as well as others were considered. Medical Records Attestation: I reviewed the patient's medical records. Home Medications Current Medication List: was personally reviewed by me Laboratory Data Attestation: I reviewed the patient's lab results. Result diagrams: 08/17/18 12:50 08/17/18 12:50 Lab Results 08/17/18 08/17/18 08/17/18 Range/Units 12:50 12:50 12:50 WBC 4.53 L (4.8-10.8) K/uL RBC 4.82 (4.2-5.4) M/uL Hgb 13.7 (12.0-16.0) g/dL Hct 38.7 (37-47) % MCV 80.3 (80-100) fL MCH 28.4 (25-34) pg MCHC 35.4 (32-36) g/dL RDW Std Deviation 39.9 (36.4-46.3) fL RDW Coeff of Anastacio 13.7 (11.5-14.5) % Plt Count 157 (130-400) K/uL MPV 9.5 (7.4-10.4) fL Immature Gran % (Auto) 0.2 % Neut % (Auto) 58.7 % Lymph % (Auto) 24.7 % Harris % (Auto) 10.2 % Eos % (Auto) 5.1 % Baso % (Auto) 1.1 % Immature Gran # (Auto) 0.01 (0.00-0.02) K/uL Neut # (Auto) 2.66 (1.4-6.5) K/uL Lymph # (Auto) 1.12 L (1.2-3.4) K/uL Harris # (Auto) 0.46 (0.11-0.59) K/uL Eos # (Auto) 0.23 (0-0.5) K/uL Baso # (Auto) 0.05 (0-0.2) K/uL PT 11.0 (9.0-12.0) Seconds INR 1.1 (0.9-1.1) APTT 24.2 (21.0-31.0) Seconds PTT Ratio 0.9 D-Dimer 230 (0-500) ug/L FEU Sodium 137 (136-145) mmol/L Potassium 3.7 (3.5-5.1) mmol/L Chloride 104 (98-107) mmol/L Carbon Dioxide 26 (21-32) mmol/L Anion Gap 7.0 (3-11) BUN 18 (7-18) mg/dl Creatinine 1.36 H (0.6-1.2) mg/dl Est Cr Clr Drug Dosing 46.1 ml/min Est GFR ( Amer) 47.5 Est GFR (Non-Af Amer) 41.0 BUN/Creatinine Ratio 12.9 (10-20) Glucose 275 H (70-99) mg/dl Calcium 9.0 (8.5-10.1) mg/dl Total Bilirubin 0.8 (0.2-1) mg/dl AST 16 (15-37) U/L ALT 27 (12-78) U/L Alkaline Phosphatase 58 (45-117) U/L Troponin I < 0.015 (0-0.045) ng/ml Total Protein 6.9 (6.4-8.2) gm/dl Albumin 3.9 (3.4-5.0) gm/dl Globulin 3.0 (2.5-4.0) gm/dl Albumin/Globulin Ratio 1.3 (0.9-2) Lipase 82 (73-393) U/L Imaging Data Radiologist's Impression: Radiology results as stated below per my review and the radiologist's interpretation: SINGLE VIEW CHEST CLINICAL HISTORY: Atypical chest pain. FINDINGS: An AP, portable, upright chest radiograph is compared to study dated 06/03/2017. The examination is degraded by portable technique and patient rotation. The cardiomediastinal silhouette is unremarkable. The lungs and pleural spaces are clear. No pneumothorax is seen. The skeletal structures are osteopenic. The bony thorax is grossly intact. Intrathecal leads project over the lower thoracic spine. IMPRESSION: No active disease in the chest. Electronically signed by: Byron Montes M.D. 08/17/2018 1:[address] SCAN OF THE BRAIN WITHOUT IV CONTRAST CLINICAL HISTORY: Blurry vision. COMPARISON STUDY: No priors. TECHNIQUE: Unenhanced axial CT scan of the brain is performed from the vertex to the skull base. A dose lowering technique was utilized adhering to the principles of ALARA. CT DOSE: 537.48 mGy.cm FINDINGS: Brain parenchyma: There is a focus of edema identified within the right occipital lobe. The overlying cortex appears preserved. There are age-related involutional changes noting mild subcortical and periventricular microangiopathic change. There is no hemorrhage or midline shift. No extra-axial fluid collection is seen. Ventricles, sulci, cisterns: Prominent secondary to involutional change. Intracranial vasculature: There is atherosclerotic calcification of the cavernous carotid arteries. Calvarium: Unremarkable. Sinuses and mastoids: The visualized paranasal sinuses are clear. The mastoid air cells are well pneumatized. Orbits: The bony orbits are grossly intact. IMPRESSION: 1. There is edema identified within the right occipital lobe. Although this could represent a subacute infarct, the overlying cortex appears spared and this is atypical in appearance. A mass lesion could have this appearance. Correlation with a contrast-enhanced MRI is recommended for further assessment. 2. There is no hemorrhage or midline shift. 3. No additional foci of edema are identified. Electronically signed by: Byron Montes M.D. 08/17/2018 2:07 PM ECG Data Attestation: I personally reviewed and interpreted this ECG as follows: Indication: chest pain Rate (beats per minute): 61 Rhythm: normal sinus Findings: + other (LVH); no PAC, no PVC, no ST depression, no ST elevation, no acute ischemic change and no ectopy Comparison ECG Date: from (06/03/17) Change: no significant change Blood Pressure Blood Pressure Findings: Elevated blood pressure Blood Pressure Disposition: Referred to patients primary care provider MDM Narrative The patient is a 63-year-old female who presented to the emergency department for an evaluation of chest pain. The patient is also been expensing blurry vision. Initially she stated that this visual problem was not unilateral but was bilateral. I discussed the patient's laboratory and radiographic studies with her. She had no definite focal neurologic deficit my initial evaluation however she does have some chronic underlying issues which cause her to have some leg weakness. The patient was found to have some laterality to her visual complaints. She was found to have an abnormality in the right occipital lobe of her CT. The patient may require further work-up. She is unable to have an MRI at this time because of her neurostimulator. I discussed her case with the on- call [facility] hospitalist. They have agreed to evaluate the patient in the emergency department for further management and possible inpatient work-up. Impression & Plan Chest pain, Decreased vision, Stroke Discharge Plan Visit Data Chief Complaint: Chest Pain Stated Complaint: HEAVY CHEST PAIN-DISSY, BLUR VISION ED Provider: Jonnie Méndez Discharge Problem: Chest pain, Decreased vision, Stroke Patient Disposition: Being Evaluated by Hospitalist Forms Stand Alone Forms: Call Back Authorization, [facility] Prescriptions Prescriptions: No Action metformin 500 mg tablet 500 mg PO TIDM RF: 0 potassium chloride [Klor-Con 10] 10 mEq tablet extended release 10 meq PO QAM RF: 0 levothyroxine 25 mcg tablet 25 mcg PO QAM RF: 0 amitriptyline 10 mg tablet 10 mg PO HS RF: 0 metoprolol tartrate 50 mg tablet 75 mg PO BID RF: 0 Novolog Flexpen U-100 Insulin 100 unit/mL insulin pen See Rx Instructions .ROUTE .COMPLEX RF: 0 Levemir FlexTouch U-100 Insuln 100 unit/mL (3 mL) insulin pen 14 units subcut QDD RF: 0 Actemra 400 mg/20 mL (20 mg/mL) solution 400 mg IV MONTHLY RF: 0 cyclobenzaprine 10 mg Tablet 10 mg PO HS RF: 0 atorvastatin 10 mg Tablet 10 mg PO QAM RF: 0 pantoprazole 40 mg Tablet,Delayed Release (Dr/Ec) 40 mg PO QAM RF: 0 losartan 100 mg Tablet 100 mg PO QAM RF: 0 Centrum Silver 0.4-300-250 mg-mcg-mcg Tablet 1 tab PO QAM RF: 0 diclofenac sodium 1 % Gel 1 applic TOPICAL BID RF: 0 Caltrate 600 + D 600 mg (1,500 mg)-800 unit Tablet,Chewable 2 tab PO QAM RF: 0 ondansetron HCl [Zofran] 4 mg tablet 4 mg PO Q8H PRN (Reason: nausea and vomiting) Qty: 20 RF: 0 fluticasone propion-salmeterol [Advair Diskus] 250-50 mcg/dose Blister With Device 1 inh INHALATION BID RF: 0 acetaminophen [Tylenol] 325 mg Tablet 325 mg PO Q6H PRN (Reason: Pain) RF: 0 meclizine 25 mg tablet 25 mg PO BID PRN (Reason: Dizziness) RF: 0 gabapentin 100 mg capsule 100 mg PO HS RF: 0 oxybutynin chloride 10 mg tablet extended release 24hr 10 mg PO QAM RF: 0 ketoconazole 2 % cream 1 applic topical BID RF: 0 chlorthalidone 25 mg tablet 25 mg PO QAM RF: 0 Referrals Referrals: Pierre Castro [Primary Care Provider] - Discharge Problem: Chest pain Qualifiers: Chest pain type: unspecified Qualified Code(s): R07.9 - Chest pain, unspecified Stroke Qualifiers: CVA mechanism: unspecified Qualified Code(s): I63.9 - Cerebral infarction, unspecified The scribe's documentation has been prepared under my direction and personally reviewed by me in its entirety. I confirm that the note above accurately reflects all work, treatment, procedures, and medical decision making performed by me.
--- NOTE | 2018-08-17 17:38 | History & Physical Report ---
Date of Service August 17, 2018 Assessment & Plan (1) Stroke-like symptoms: Uncertain etiology Pt states she had a CT with her initial workup at [place], but was not told of any sort of abnormality Awaiting imaging from OSH CT here as noted with ?? subacute stroke vs R sided occipital mass Neuro c/s, has seen Dr. Tijerina in the past for neuropathy Unable to obtain MRI due to pain stimulator ECHO done at OSH, will hold on repeat for now CBC, PRP WNL with the exception of elevated cr Lyme, B12, TSH pending (2) ARF (acute renal failure): Likely dehydration related to decreased PO intake Monitor on IVF Was 1.25 on 03/2018, now 1.38 (3) Chest pain: Not present today States neg work up at OSH, however uncertain what testing Holding on ECHO as done last week (4) Diabetes: Home lantus + SSI PRN Holding metformin Likely A1c done as outpt, will not order for now (5) Hypertension: continue home meds Labile, monitor (6) Lumbar back pain: Spine stimulator in place (7) Insomnia: Amytriptyline use, continue (8) Neuropathy: Gapapentin use, continue (9) Hypothyroid: continue home meds TSH pending (10) Hypokalemia: 10meq QD as outpt Low normal on admission Monitor (11) Hyperlipidemia: continue home meds Likely lipid panel as part of cardiac eval, will not repeat (12) GERD (gastroesophageal reflux disease): continue home meds (13) Gastroparesis: continue home meds (14) DVT prophylaxis: SCDs History of Present Illness Primary Care Provider: Pierre Castro 63 y/o F with multiple medical complaints. Pt states that she has felt unwell since last Friday. She was noted to have lightheadedness, headache, blurry vision, L UE n/t, and chest pain. She went to the ED at [facility] and was admitted overnight. She states she had a CT scan, an ECHO, and labs done. She is uncertain what labs were checked but states she was told they were all normal. She states she was not told of any sort of CT abnormality. She states her ECHO was done in the AM and she was d/c'd shortly after but was not told the results. She continued to feel unwell and had a f/u with her PCP. She was advised to return to the ED due to ongoing sx. She returned to [place] ED and had more testing, but was sent home from the ED. She was advised to f/u with her PCP again. She called today as her blurry vision was worse and was told that she should go to the ED. She decided to come to [facility] for additional care. She states that she was given morphine in the ED on her second visit and this has helped her headache. She states she does not usually have headache. She does not have chest pain today, but does have ongoing L UE n/t. No weakness or inabilty to use her arm. No LE weakness. Her vision is blurry b/l, but more in the L. She has never had sx like this in the past. Denies recent tick bites or rashes. Pt denies fever, SOB, LE pain or swelling. Pt states that she was constipated and with abd pain yesterday, which she attributes to morphine prior. She took colace x1 and has had diarrhea since that time. No longer with abd pain. Pt states she has not eaten much due to fatigue. Allergies Allergy/AdvReac Type Severity Reaction Status Date / Time pregabalin Allergy Severe SWELLING Verified 08/17/18 15:09 rofecoxib Allergy Intermediate RASH Verified 08/17/18 15:09 meloxicam AdvReac Intermediate Hives Verified 08/17/18 15:09 NSAIDS (Non-Steroidal AdvReac Intermediate gi problems Verified 08/17/18 15:09 Anti-Inflamma Home Medications Home Medications Medication Instructions Recorded Confirmed Type amitriptyline 10 mg PO HS 03/22/18 08/17/18 History atorvastatin 10 mg PO QAM 03/22/18 08/17/18 History calcium carbonate-vitamin D3 2 tab PO QAM 03/22/18 08/17/18 History [Caltrate 600 + D] cyclobenzaprine 10 mg PO HS 03/22/18 08/17/18 History diclofenac sodium 1 applic TOPICAL BID 03/22/18 08/17/18 History insulin aspart U-100 [Novolog See Rx Instructions .ROUTE .COMPLEX 03/22/18 08/17/18 History Flexpen U-100 Insulin] insulin detemir U-100 [Levemir 14 units SUBCUT QDD 03/22/18 08/17/18 History FlexTouch U-100 Insuln] levothyroxine 25 mcg PO QAM 03/22/18 08/17/18 History losartan 100 mg PO QAM 03/22/18 08/17/18 History metformin 500 mg PO TIDM 03/22/18 08/17/18 History metoprolol tartrate 75 mg PO BID 03/22/18 08/17/18 History qvuwcnoa-nwu-GJ-lycopen-lutein 1 tab PO QAM 03/22/18 08/17/18 History [Centrum Silver] ondansetron HCl [Zofran] 4 mg PO Q8H PRN #20 tab 03/22/18 08/17/18 Rx pantoprazole 40 mg PO QAM 03/22/18 08/17/18 History potassium chloride [Klor-Con 10] 10 meq PO QAM 03/22/18 08/17/18 History tocilizumab [Actemra] 400 mg IV MONTHLY 03/22/18 08/17/18 History acetaminophen [Tylenol] 325 mg PO Q6H PRN 08/17/18 08/17/18 History chlorthalidone 25 mg PO QAM 08/17/18 08/17/18 History fluticasone propion-salmeterol 1 inh INHALATION BID 08/17/18 08/17/18 History [Advair Diskus] gabapentin 100 mg PO HS 08/17/18 08/17/18 History ketoconazole 1 applic TOPICAL BID 08/17/18 08/17/18 History meclizine 25 mg PO BID PRN 08/17/18 08/17/18 History oxybutynin chloride 10 mg PO QAM 08/17/18 08/17/18 History Past Med/Surg History Medical History Lumbar back pain (Acute) Hypertension (Chronic) Diabetes (Chronic) Gastroparesis (Chronic) Arthritis (Chronic) Surgical History History of root canal procedure Family History Father , Multiple CVAs starting in his 50s Stroke Myocardial infarction Mother , Uncertain type of heart issue Heart disease Other No significant family history Social History Feels Safe at Home: Yes Smoking Status: Never smoker Hx Alcohol Use: No Hx Substance Use: No Review of Systems Review of Systems: Pertinent positives and negatives reviewed in HPI--all others negative Physical Exam Constitutional: WD/WN, vitals as above Eyes: normal visual brock by confrontation and + anicteric sclerae Neck: normal visual inspection and trachea midline Respiratory: normal respiratory effort, lungs clear to auscultation Cardiovascular: Rate/Rhythm: regular rate and regular rhythm Gastrointestinal (Abdomen): Inspection/Auscultation: abdomen not distended Percussion/Palpation: abdomen soft; abdomen nontender Musculoskeletal: Head/Neck/Chest: normocephalic and head atraumatic negative for edema, peripheral pulses intact Skin: no rashes, warm and dry Neurologic: awake; not confused Speech / Cognition: normal speech Psychiatric: A+Ox3, euthymic affect Results & Data Vital Signs (Past 12 Hours) Vital Signs Temp Pulse Pulse Resp BP BP Pulse Ox 08/17/18 16:41 50 L 20 195/81 H 100 08/17/18 15:03 53 L 20 97 08/17/18 13:59 50 L 16 177/100 H 08/17/18 13:43 96 08/17/18 13:41 56 L 16 156/79 H 93 08/17/18 12:38 36.6 C 62 18 158/86 H 97 Diagnostic Findings CXR: neg for acute CT head: 1. There is edema identified within the right occipital lobe. Although this could represent a subacute infarct, the overlying cortex appears spared and this is atypical in appearance. A mass lesion could have this appearance. Correlation with a contrast-enhanced MRI is recommended for further assessment. 2. There is no hemorrhage or midline shift. 3. No additional foci of edema are identified. ECG Rhythm: normal sinus Code Status & VTE Plan Code Status Full code, although pt states no prolonged mechanical life support, feeding tubes, etc. Pt states she has a living will. VTE Prophylaxis Plan VTE Prophylaxis will be ordered: Yes (1) Chest pain Chest pain type: unspecified Qualified Code(s): R07.9 - Chest pain, unspecified
[2018-08-17] MEDS ORDERED: MAGNESIUM HYDROXIDE SUSP 30 ML UDC PO PRN (18:33)
[2018-08-17] MEDS ORDERED: ONDANSETRON INJ 2 MG/ML 2 ML VIAL IV PRN (18:33)
[2018-08-17] MEDS ORDERED: MECLIZINE HCL 25 MG TAB PO PRN (18:33)
[2018-08-17] MEDS ORDERED: ONDANSETRON 4 MG TAB PO PRN (18:33)
[2018-08-17] MEDS ORDERED: TOCILIZUMAB 400 MG IV SCH (18:33)
[2018-08-17] MEDS ORDERED: ACETAMINOPHEN 325 MG TAB PO PRN ×2 (18:33)
[2018-08-17] MEDS ORDERED: GLUCAGON FOR INJ 1 MG VIAL IM PRN (19:30)
[2018-08-17] MEDS ORDERED: GLUCOSE 10 TABS/TUBE PO PRN ×2 (19:30→20:18)
[2018-08-17] MEDS ORDERED: DEXTROSE 50% 50 ML SYRINGE IV PRN ×2 (19:30→20:18)
[2018-08-17] MEDS ORDERED: CARBOHYDRATES FOR HYPOGLYCEMIA PO PRN ×2 (19:30→20:18)
[2018-08-17] MEDS ORDERED: GLUCOSE 40% GEL 15 GM TUBE PO PRN ×2 (19:30→20:18)
[2018-08-17 20:04] LABS: Lyme Ab IgG w/WB Rflx Negative (Negative); Lyme Ab IgM w/WB Rflx Negative (Negative)
[2018-08-17] MEDS ORDERED: GLUCAGON FOR INJ 1 MG VIAL SQ PRN (20:18)
[2018-08-17] MEDS: NSS + 20MEQ KCL 20 MEQ/1,000 ML BAG IV SCH (20:48)
[2018-08-17] MEDS: INSULIN DETEMIR FLEXPEN/FLEX TOUCH 100 UNITS/ML 3ML SQ SCH (20:53)
[2018-08-17] MEDS: FLUTICASONE/SALMETEROL 250/50 (ADVAIR) 14 PUFF/1 INHALER INH SCH (20:54)
[2018-08-17] MEDS: METOPROLOL TARTRATE 50 MG TAB PO SCH (20:56)
[2018-08-17] MEDS: CYCLOBENZAPRINE HCL 10 MG TAB PO SCH (20:56)
[2018-08-17] MEDS ORDERED: GABAPENTIN 100 MG CAP PO SCH (21:00)
[2018-08-17] MEDS ORDERED: AMITRIPTYLINE HCL 10 MG TAB PO SCH (21:00)
[2018-08-17] MEDS: KETOCONAZOLE 2% CR 15 GM TUBE EXT SCH (21:36)
[2018-08-17] MEDS: DICLOFENAC SOD 1% GEL 100 GM TUBE EXT SCH (21:36)
[2018-08-17] MEDS: INSULIN ASPART 100 UNITS/ML 3 ML PEN SC SCH (21:54)
[2018-08-18] MEDS: LEVOTHYROXINE SODIUM 25 MCG TABLET PO SCH (05:22)
[2018-08-18] MEDS ORDERED: LEVOTHYROXINE SODIUM 25 MCG TABLET PO SCH (06:30)
[2018-08-18 07:12] LABS: BUN Creatinine Ratio 13.5 (10-20); Calcium 8.4 mg/dl (8.5-10.1); Est GFR (African American) 56.4; Est GFR (Non-African American) 48.7; Potassium 3.8 mmol/L (3.5-5.1)
[2018-08-18] MEDS: ATORVASTATIN 10 MG TAB PO SCH (08:24)
[2018-08-18] MEDS: FLUTICASONE/SALMETEROL 250/50 (ADVAIR) 14 PUFF/1 INHALER INH SCH ×3 (08:24→22:04)
[2018-08-18] MEDS: AMLODIPINE BESYLATE 5 MG TAB PO SCH (08:24)
[2018-08-18] MEDS: INSULIN ASPART 100 UNITS/ML 3 ML PEN SC SCH ×4 (08:24→22:13)
[2018-08-18] MEDS: LOSARTAN POTASSIUM 50 MG TAB PO SCH (08:25)
[2018-08-18] MEDS: POTASSIUM CHLORIDE 10 MEQ TABCR PO SCH (08:25)
[2018-08-18] MEDS: PANTOprazole 40 MG TAB PO SCH (08:25)
[2018-08-18] MEDS: OXYBUTYNIN CHLORIDE XL 5 MG TABCR PO SCH (08:25)
[2018-08-18] MEDS: CALCIUM 600MG + VIT D 400 IU TAB PO SCH (08:25)
[2018-08-18] MEDS: METOPROLOL TARTRATE 50 MG TAB PO SCH ×2 (08:26→22:09)
[2018-08-18] MEDS: CHLORTHALIDONE 25 MG TAB PO SCH (08:26)
[2018-08-18] MEDS: DICLOFENAC SOD 1% GEL 100 GM TUBE EXT SCH ×3 (08:27→22:11)
[2018-08-18] MEDS: KETOCONAZOLE 2% CR 15 GM TUBE EXT SCH ×3 (08:27→22:10)
--- NOTE | 2018-08-18 08:32 | Neurology Consultation ---
Date of Consultation August 18, 2018 Assessment & Plan (1) Stroke-like symptoms: Patient had the onset of blurry vision particularly to the left, vertiginous symptoms intermittently, chest pain, bifrontal headache, and left upper extremity weakness and numbness about 5 days prior to admission which has been consistent. Currently she continues to have vision problems particularly to the left and the left upper extremity numbness and weakness. The other symptoms have resolved. On examination neurologically she has at least a partial left homonymous hemianopsia and some weakness in the left upper extremity including drift. Left lower extremity is weak but this may be chronic (from previous lumbar spine surgery).. I cannot tell if it is worse than previous as the patient feels it is about the same. CT scan shows a right occipital lesion of a fairly large size consistent with subacute stroke (verses tumor). Apparently she had a CT scan several days ago at [facility] but we do not have this film. I suspect a small vessel ischemic/thrombotic stroke. Risk factors include longstanding diabetes with glucose not adequately controlled, hypertension history and dyslipidemia. Unfortunately, the patient cannot get an MRI because of her implanted neurostimulator in the lumbar spine. (2) Lumbar back pain: Patient has a history of chronic low back pain post multiple lumbar spine surgeries about [address] Whiting She is fairly stable with this low back pain and doing fairly well all things considered. She does not use the neurostimulator (it is turned off) because she cannot tolerate the pulsing despite multiple attempts of adjustment. She would like the neurostimulator removed. (3) Neuropathy: Patient has a history of peripheral polyneuropathy involving predominantly sensory fibers likely from her diabetes. This is stable although it does give her some dysesthesias. She is on very low-doses of amitriptyline (10 mg at bedtime for sleep and pain) and gabapentin (100 mg at bedtime). Neither of these medications seem to help her leg cramping and sleep. Recommendations: 1. We could see if her stimulator, since turned off, is MRI compatible (check with [employer]). If not, we cannot do an MRI. 2. I will speak with Dr. Whiting as she wants the neurostimulator removed (which would be done as an outpatient). 3. Obtain CT scan film from [facility] done several days ago. If this was normal, this would help solidify the diagnosis of stroke. It was abnormal or we can obtain the film, then I would consider doing a CT scan of the head with without contrast later today or tomorrow. 4. Obtain hemoglobin A1c and fasting lipid profile. Control sugar to keep hemoglobin A1c is close to 6.0 as possible. 5. Control blood pressure as you are doing, aiming for a mean arterial pressure of approximately 100. 6. The patient, in theory, would be a high-dose statin candidate however we need to obtain a fasting lipid profile 1st before a final dose decision is made. 7. Consider increasing levothyroxine to 50 mcg daily since her TSH was borderline at 4.22. This also could be done as an outpatient. 8. Increase activity as able consider physical and occupational therapy consults. 9. The patient will need an ophthalmology consultation as an outpatient, especially to map out visual brock formally. 10. Initiate Plavix 75 mg daily. She would be an aspirin candidate in general but she was told by her pheresis specialist, who treats her rheumatoid arthritis, to avoid aspirin if possible. 11. Consider discontinuing amitriptyline and increasing gabapentin to 300 mg each evening for control of leg cramping, and sleep. This can be titrated as an outpatient as needed. 12. Patient needs a new primary care physician and I would suggest Dr. Sanchez and the [facility] group. 13. I can follow as an outpatient, if desired, also. Overall, I spent a total of 110 minutes with this case, including review of records, review of CT films, direct evaluation the patient at bedside, and discussion of the case with the patient at bedside, nursing staff at bedside, and Dr. Conway, including differential diagnosis and treatment options. 5. History of Present Illness Reason for Consultation: Patient is a 63-year-old, who I was asked to see at the request of Dr. Haines, for neurologic consultation regarding new onset vision issues, left upper extremity problems, and abnormal CT scan of head. Requesting Physician: Dr. Haines Attending Physician: Carlos Conway MD History of Present Illness Patient has a 10 year history of diabetes has been insulin dependent for years. She has had hypertension for the last couple of years as well. She has rheumatoid arthritis, gastroparesis, hypothyroidism, and polyneuropathy secondary to diabetes. Patient has a history of chronic low back pain and left lower extremity pain and weakness post 4 lumbar spine surgeries from [id number] Whiting. She had a neurostimulator placed in 2009 and despite multiple adjustments over the years she has turned off and she cannot stand the pulsing. She wants to take a. Unfortunately, she cannot get an MRI as long as it is in. Patient has had trouble sleeping and is on 10 mg of amitriptyline at bedtime. She takes 100 mg of gabapentin at bedtime for leg cramps dysesthesias from the polyneuropathy. Neither these medications really helped much. Her energy level has been reasonable. She has some urinary incontinence. Myrbetriq helped but was too expensive. She is on oxybutynin 10 mg which also helps and is more affordable. On August 12, during the day she had the onset of vertiginous feelings, left upper extremity numbness and weakness and a bifrontal headache. She noticed her vision was blurry as well. She went to the emergency room at [facility] and she was admitted overnight. A CT scan of the head was obtained and I do not have these results but it was reportedly unremarkable. She was discharged the next morning and continued to have symptoms. She went back to the emergency Center finally, because of persistence of symptoms including left upper extremity weakness and numbness, blurry vision, vertiginous feelings intermittently, chest pain which was intermittent over 5 days, and a bifrontal pounding headache she came to our emergency room August 17. On August 17 at 1238 temperature was 36.6, pulse 62 and regular, respiratory rate 18 uncomfortable, blood pressure 158/86, and O2 saturation 97%. Exam was described as nonfocal with a normal mental status in the emergency room. CBC was unremarkable. Chem profile was unremarkable except for glucose of 275. B12 was 646 and TSH was 4.22. Lyme antibody titers were negative. Chest x-ray was unremarkable. CT scan of the head showed a right occipital lesion of a rather large size with edema consistent with a subacute stroke (versus tumor). IV contrast was not given. I reviewed the CT scan films with the patient at bedside. An MRI of the brain could not be obtained because of her lumbar spine implanted neurostimulator. This morning she has no vertiginous feelings and no headache. She still has blurry vision particularly off to the left and has some numbness and tingling distally in the left upper extremity. Her left arm feels weak. Her left leg is also weak but she feels this is been chronic since her back surgery and does not think it is any worse. Her energy is been poor for the last week otherwise it has been doing well. She has no incontinence of urine, no speech her memory problem, and no radicular type symptoms in the arms or legs. Allergies Allergy/AdvReac Type Severity Reaction Status Date / Time pregabalin Allergy Severe SWELLING Verified 08/17/18 15:09 rofecoxib Allergy Intermediate RASH Verified 08/17/18 15:09 meloxicam AdvReac Intermediate Hives Verified 08/17/18 15:09 NSAIDS (Non-Steroidal AdvReac Intermediate gi problems Verified 08/17/18 15:09 Anti-Inflamma Home Medications Home Medications Medication Instructions Recorded Confirmed Type amitriptyline 10 mg PO HS 03/22/18 08/17/18 History atorvastatin 10 mg PO QAM 03/22/18 08/17/18 History calcium carbonate-vitamin D3 2 tab PO QAM 03/22/18 08/17/18 History [Caltrate 600 + D] cyclobenzaprine 10 mg PO HS 03/22/18 08/17/18 History diclofenac sodium 1 applic TOPICAL BID 03/22/18 08/17/18 History insulin aspart U-100 [Novolog See Rx Instructions .ROUTE .COMPLEX 03/22/18 08/17/18 History Flexpen U-100 Insulin] insulin detemir U-100 [Levemir 14 units SUBCUT QDD 03/22/18 08/17/18 History FlexTouch U-100 Insuln] levothyroxine 25 mcg PO QAM 03/22/18 08/17/18 History losartan 100 mg PO QAM 03/22/18 08/17/18 History metformin 500 mg PO TIDM 03/22/18 08/17/18 History metoprolol tartrate 75 mg PO BID 03/22/18 08/17/18 History fveuogxo-bgj-AE-lycopen-lutein 1 tab PO QAM 03/22/18 08/17/18 History [Centrum Silver] ondansetron HCl [Zofran] 4 mg PO Q8H PRN #20 tab 03/22/18 08/17/18 Rx pantoprazole 40 mg PO QAM 03/22/18 08/17/18 History potassium chloride [Klor-Con 10] 10 meq PO QAM 03/22/18 08/17/18 History tocilizumab [Actemra] 400 mg IV MONTHLY 03/22/18 08/17/18 History acetaminophen [Tylenol] 325 mg PO Q6H PRN 08/17/18 08/17/18 History chlorthalidone 25 mg PO QAM 08/17/18 08/17/18 History fluticasone propion-salmeterol 1 inh INHALATION BID 08/17/18 08/17/18 History [Advair Diskus] gabapentin 100 mg PO HS 08/17/18 08/17/18 History ketoconazole 1 applic TOPICAL BID 08/17/18 08/17/18 History meclizine 25 mg PO BID PRN 08/17/18 08/17/18 History oxybutynin chloride 10 mg PO QAM 08/17/18 08/17/18 History Patient History Medical History Lumbar back pain (Acute) Hypertension (Chronic) Diabetes (Chronic) Gastroparesis (Chronic) Arthritis (Chronic) Surgical History H/O lumbosacral spine surgery Hx laparoscopic cholecystectomy History of root canal procedure Family History Father , Multiple CVAs starting in his 50s Stroke Myocardial infarction Diabetes Mother , Uncertain type of heart issue Heart disease Lung cancer Other No significant family history Social History Preferred Language: Sami Communication Ability: Effective Transportation Engineer Required: No Beliefs That Will Affect Care: None Current Living Situation: Spouse current occupational status: disabled 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 Feels Safe at Home: Yes Safety Concerns: Feels Safe At This Time Smoking Status: Never smoker Hx Alcohol Use: No Hx Substance Use: No Review of Systems Constitutional: + fatigue; no fever and no weakness Eyes: + loss of peripheral vision and + worsening vision; no diplopia and no eye pain Ear, Nose, Mouth, Throat: + dizziness; no ear pain, no tinnitus, no hearing loss and no dysphagia Respiratory: no cough and no dyspnea Cardiovascular: no chest pain, no dyspnea and no palpitations Gastrointestinal: no abdominal pain, no nausea and no vomiting Genitourinary: no dysuria, no urinary frequency and no urinary incontinence Musculoskeletal: + back pain; no neck pain, no radicular pain, no myalgia, no muscle weakness and no muscle atrophy Cramping at night particularly in the legs. Integumentary: no rash and no lesions Neurologic: + localized weakness, + numbness and + dizziness; no gait ab normality, no falls, no generalized weakness, no tingling, no tremor(s), no abno rmal movements, no headache(s), no abnormal speech, no behavioral changes, no confusion and no memory loss Psychiatric: no depression, no abnormal sleep pattern, no anxiety, no difficulty concentrating, no confusion and no hallucinations Trouble falling asleep Endocrine: + fatigue; no flushing Hematologic / Lymphatic: no easy bleeding and no easy bruising Allergy / Immunological: no urticaria Physical Exam Physical Exam: The patient is right-handed. The patient is awake, alert, and attentive. Speech is normal without any aphasia or dysarthria. Mentation and thought processes are intact, with full orientation and normal fund of knowledge. Attention and concentration are normal. Mood and affect are normal and appropriate. General appearance and grooming are normal. Short and long-term memory are intact. The discs are sharp with positive venous pulsations bilaterally. There are no exudates, hemorrhages, or blood vessel changes seen. Pupils are 4 mm bilaterally and reactive to light. Extraocular eye muscles are intact without nystagmus. Visual brock are decreased to the left in both eyes consistent with at least a partial homonymous hemianopsia to the left. There are no deficits to sensation in the face in all 3 distributions of the fifth cranial nerve bilaterally. Corneal reflexes are positive bilaterally. Facial strength and symmetry was normal bilaterally. Hearing seems intact grossly to voice and finger rub bilaterally. Palate moves well without asymmetry. There is normal sternocleidomastoid and trapezius (shoulder shrug) strength bilaterally. Tongue is midline with good strength bilaterally. Neck has a full range of motion without discomfort. There are no cervical bruits bilaterally. There are no cranial or ocular bruits. Heart is without murmur. There is a regular rhythm and rate. Cervical, thoracic, and lumbar spine are nontender to palpation. Gait is narrow based, with good arm swing, turns, and stance. Balance is normal eyes open or closed. With outstretched arms there is a very mild drift on the left. There are no resting, postural, or action tremors. There is no ataxia with finger to nose testing. There is good facility in the hands, although the left was slightly or clumsy compared to the right. No other abnormal involuntary movements are noted. Motor strength is 5/5 diffusely in the right upper extremity including deltoids, biceps, triceps, brachioradialis, wrist flexors and extensors, decision analyst, and intrinsic hand muscles. Left upper extremity was 4+/5 diffusely. Motor strength is 5/5 diffusely in the right lower extremity including hip flexors, quadriceps, hamstrings, gastrocnemius, tibialis anterior, tibialis posterior, and Peroneii muscles. Left lower extremity was 4/5 diffusely. Toe extensors are normal on the right and weak on the left, and there is good bulk in the extensor digitorum brevis muscles bilaterally. The limbs have good tone without rigidity or spasticity. There is no atrophy noted in the muscles. Muscle bulk is normal, there is no tenderness to palpation, no myotonia to percussion, and no fasciculations seen. Sensory examination is mildly decreased to pin touch distally in the legs candido aterally. Reflexes are 0/4 in the biceps, triceps, brachioradialis, quadriceps, and Achilles tendons bilaterally. Toes are downgoing with plantar stimulation bilaterally. Peripheral pulses are present and of normal quality distally in all 4 limbs. There is no peripheral edema noted in the limbs. Results & Data Vital Signs (Past 12 Hours) Vital Signs Temp Pulse Resp BP Pulse Ox 08/18/18 07:02 36.7 C 49 L 17 147/80 H 95 08/18/18 03:31 36.6 C 53 L 17 149/77 H 97 08/17/18 23:35 36.6 C 43 L 17 121/71 99 Diagnostic Findings [facility], [place] [phone] CT Scan Report Patient: ZENAIDA RUBI AUGUSTAdmit Date: 08/17/18 MR#: [id number]: [facility] Acct ID:[id number]: Date: [address] [place] [address] Zip: [id number] Age: 63Location: ED Sex: F Room/Bed: Att Phy: Diagnosis: HEAVY CHEST PAIN-DIZZY, BLUR VISION Candi Phy: Pierre Castro D.O.Service Date: 08/17/18 [facility] Phy: Interpreting Phy: Byron Montes MD Admit Phy: Ordering Phy: Jonnie Méndez, cc: ~ CT SCAN OF THE BRAIN WITHOUT IV CONTRAST CLINICAL HISTORY: Blurry vision. COMPARISON STUDY: No priors. TECHNIQUE: Unenhanced axial CT scan of the brain is performed from the vertex to the skull base. A dose lowering technique was utilized adhering to the principles of ALARA. CT DOSE: 537.48 mGy.cm FINDINGS: Brain parenchyma: There is a focus of edema identified within the right occipital lobe. The overlying cortex appears preserved. There are age-related involutional changes noting mild subcortical and periventricular microangiopathic change. There is no hemorrhage or midline shift. No extra-axial fluid collection is seen. Ventricles, sulci, cisterns: Prominent secondary to involutional change. Intracranial vasculature: There is atherosclerotic calcification of the cavernous carotid arteries. Calvarium: Unremarkable. Sinuses and mastoids: The visualized paranasal sinuses are clear. The mastoid air cells are well pneumatized. Orbits: The bony orbits are grossly intact. IMPRESSION: 1. There is edema identified within the right occipital lobe. Although this could represent a subacute infarct, the overlying cortex appears spared and this is atypical in appearance. A mass lesion could have this appearance. Correlation with a contrast-enhanced MRI is recommended for further assessment. 2. There is no hemorrhage or midline shift. 3. No additional foci of edema are identified. Electronically signed by: Byron Montes M.D. 08/17/2018 2:07 PM
[2018-08-18] MEDS ORDERED: NON-FORMULARY MEDICATION (Multivit-Min-Fa-Lycopen-Lutein [Centrum Silver] 1 TAB) PO SCH (09:00)
[2018-08-18] MEDS: NSS + 20MEQ KCL 20 MEQ/1,000 ML BAG IV SCH (11:49)
[2018-08-18] MEDS ORDERED: ARTIFICIAL TEARS OPB PRN (13:35)
--- NOTE | 2018-08-18 13:48 | Hospitalist Progress Note ---
Date of Service August 18, 2018 Assessment & Plan (1) Stroke-like symptoms: Seen by neurology with concern for CVA vs. malignancy. - Will compare CT from [place] to our CT head on 08/17. - Possibly unobtain MRI due to pain stimulator -> Will discuss with electronic sales and service technician - Follow up outside records. - Start Plavix if this is thought to be a CVA. (2) ARF (acute renal failure): Likely dehydration related to decreased PO intake. - Was 1.25 on 03/2018, up to 1.38 on admission. - Down to 1.2 on 08/18 (3) Chest pain: Not present during this admission. States neg work up at OSH, however uncertain what testing - Follow up [place] echo (4) Diabetes: - Home lantus + SSI PRN - Holding metformin - A1c ordered - Glycemic consult (5) Hypertension: MAP goal ~100 per neurology. - Continue home meds (6) Lumbar back pain: Spine stimulator in place, though off. - Would like to discuss with Dr. Whiting as she wants to have it removed. (7) Insomnia: Will try to simplify meds - Hold amytriptyline - Increase gabapentin (8) Hypothyroid: TSH was mildly elevated at 4.4 this admission. No signs/symptoms of hypothyroidism. - Continue home Synthroid 25 mcg (9) Hypokalemia: 10meq QD as outpt Low normal on admission Monitor (10) Hyperlipidemia: Will get fasting lipids. - Continue home meds - Possible high-dose statin candidate (11) GERD (gastroesophageal reflux disease): Continue home meds (12) Gastroparesis: Continue home meds (13) DVT prophylaxis: SCDs Subjective No major change in visual issues. Otherwise stable. Review of Systems Review of Systems: All systems reviewed & are unremarkable except as noted in HPI & below Physical Exam Constitutional: WD/WN, vitals as above Eyes: normal visual brock by confrontation and + anicteric sclerae Neck: normal visual inspection and trachea midline Respiratory: normal respiratory effort, lungs clear to auscultation Cardiovascular: Rate/Rhythm: regular rate and regular rhythm Gastrointestinal (Abdomen): Inspection/Auscultation: abdomen not distended Percussion/Palpation: abdomen soft; abdomen nontender Musculoskeletal: Head/Neck/Chest: normocephalic and head atraumatic Skin: no rashes, warm and dry Neurologic: awake; not confused Speech / Cognition: normal speech Psychiatric: A+Ox3, euthymic affect Results & Data Vital Signs (Past 12 Hours) Vital Signs Temp Pulse Resp BP Pulse Ox 08/18/18 11:55 36.9 C 57 L 19 155/84 H 95 08/18/18 07:02 36.7 C 49 L 17 147/80 H 95 08/18/18 03:31 36.6 C 53 L 17 149/77 H 97 (1) Chest pain Chest pain type: unspecified Qualified Code(s): R07.9 - Chest pain, unspecified
[2018-08-18] MEDS ORDERED: PHARMACY GLYCEMIC MGMT CONSULT PRN (13:49)
--- NOTE | 2018-08-18 14:30 | Pharmacy Report ---
Glycemic Control Consultation - Date of Service August 18, 2018 - Scope Scope: Glycemic Pharmacist consulted by Dr Conway on 08/18 for glycemic control and to write orders per [facility] inpatient glycemic control protocol - Objective Weight: 95.5 kg Accuchecks BSG (last 24hrs): 08/17/18 08/18/18 08/18/18 20:15 06:21 07:30 Glucose 150 H POC Glucose 213 H 140 H 08/18/18 11:30 Glucose POC Glucose 144 H Laboratory Data (last 24hrs): 08/18/18 06:21 Potassium 3.8 Carbon Dioxide 28 Anion Gap 4.0 Creatinine 1.18 Est Cr Clr Drug Dosing 53.0 - Recent Pertinent Medications Outpatient Anti-diabetic Regimen: * Levemir 14 units with dinner * Novolog with meals using CR = 8 * Metformin 500 mg TID * A1c = unknown The patient is currently receiving: * Basal insulin: Levemir 14 units every 24 hours (dosed with dinner) * Correctional Insulin: Novolog Correction per scale ACHS Goal Range: Low 120 mg/dL - High 140 mg/dL Correction Factor: 15 mg/dL/unit * Prandial insulin: Per carb ratio of 1 unit per 5 grams CHO consumed * Oral Agents: None at this time Risk Factors for Insulin Resistance: * Diet: type 2 diabetes - Assessment & Plan Assessment & Plan: ASSESSMENT: * 63 y/o female admitted 08/17 for stroke-like symptoms. She has a history of type 2 diabetes managed with metformin + basal/bolus insulin. Recent out patient control is unknown as no A1c is available. * She was continued on her outpatient dose of Levemir on admission and a fairly aggressive CF/CR using Novolog. Metformin is on hold during admission. * BSGs have improved and have all been within range today. Will continue same basal dose but loosen the CF for the Novolog slightly to prevent hypoglycemia if BSG becomes elevated. CR will probably need loosened in the future but hesitant to do so now with well controlled BSGs. PLAN FOR INPATIENT GLYCEMIC CONTROL: * Continue to hold outpatient oral diabetes medications * Basal insulin - no change * Levemir 14 units SQ with dinner * Bolus insulin - adjust goal range to ADA recommendations for non-critically ill patient; loosen CF * NovoLog per scale ACHS or Q6hrs while NPO * Goal Range: Low 110 mg/dL - High 140 mg/dL * Correction Factor: 20 mg/dL/unit * Nutritional / Prandial insulin per carb ratio of 1 unit per 5 grams CHO consumed * A1c has already been ordered w/ AM labs. Will provide discharge recommendations once this is available. * Please note that the plan above was derived based on current level of insulin resistance and hospital stress. These recommendations are appropriate for inpatient admission only. Plan of care upon discharge will need to be reassessed to avoid potential outpatient hypo/hyperglycemia. Thank you.
[2018-08-18] MEDS: INSULIN DETEMIR FLEXPEN/FLEX TOUCH 100 UNITS/ML 3ML SQ SCH (17:07)
[2018-08-18] MEDS ORDERED: IOVERSOL 100ml IV PRN (19:48)
--- NOTE | 2018-08-18 20:00 | CT Scan Report ---
CT SCAN OF THE BRAIN COMBO CLINICAL HISTORY: Follow-up right occipital lobe abnormality. Blurry vision. COMPARISON STUDY: CT of the brain dated 08/17/2018. TECHNIQUE: Axial CT scan of the brain is performed from the vertex to the skull base before and follo wing the IV administration of 90 cc of Optiray 320. IV contrast was administered without complication . A dose lowering technique was utilized adhering to the principles of ALARA. CT DOSE: 1074.96 mGy.cm FINDINGS: Brain parenchyma: There is unchanged appearance of focal edema within the right occipital lobe. The o verlying cortex remains preserved. No abnormal postcontrast enhancement is clearly identified. No add itional foci of abnormality are identified. There are age-related involutional changes noting mild s ubcortical and periventricular microangiopathic change. There is no hemorrhage or midline shift. No e xtra-axial fluid collection is seen. Ventricles, sulci, cisterns: Prominent secondary to involutional change. Intracranial vasculature: There is atherosclerotic calcification of the cavernous carotid arteries. Calvarium: Unremarkable. Sinuses and mastoids: The visualized paranasal sinuses are clear. The mastoid air cells are well pneu matized. Orbits: The bony orbits are grossly intact. IMPRESSION: 1. There is unchanged appearance of focal edema within the right occipital lobe as compared to yester day. No postcontrast enhancement is clearly identified. The appearance remains atypical for subacute ischemia given preservation of the overlying cortex, and a mass lesion is still favored. If possible, correlation with a contrast-enhanced MRI would provide right much better assessment. 2. There is no hemorrhage or midline shift. 3. No additional foci of edema are identified. Electronically signed by: Byron Montes M.D. 08/18/2018 7:59 PM
[2018-08-18] MEDS ORDERED: GABAPENTIN 300 MG CAP PO SCH (21:00)
[2018-08-18] MEDS: CYCLOBENZAPRINE HCL 10 MG TAB PO SCH (22:10)
[2018-08-19] MEDS: LEVOTHYROXINE SODIUM 25 MCG TABLET PO SCH (06:30)
[2018-08-19 07:07] LABS: Hematocrit (blood only) 35.5 % (37-47); Hemoglobin 12.7 g/dL (12.0-16.0); Mean Corpuscular Hgb Conc 35.8 g/dL (32-36); Mean Corpuscular Volume 79.6 fL (80-100); Mean Platelet Volume 9.3 fL (7.4-10.4); Platelet Count 149 K/uL (130-400); RDW Coefficient of Variation 13.4 % (11.5-14.5); RDW Standard Deviation 38.5 fL (36.4-46.3); Red Blood Count 4.46 M/uL (4.2-5.4); White Blood Count 4.51 K/uL (4.8-10.8)
[2018-08-19 07:44] LABS: BUN Creatinine Ratio 14.5 (10-20); Creatinine Clr Calc Pharmacy 54.9 ml/min; Est GFR (African American) 58.9; Est GFR (Non-African American) 50.8; Magnesium 1.9 mg/dl (1.8-2.4); Potassium 3.6 mmol/L (3.5-5.1)
--- NOTE | 2018-08-19 08:10 | Neurology Progress Note ---
Date of Service August 19, 2018 Assessment & Plan (1) Stroke-like symptoms: Patient had the onset of blurry vision particularly to the left, vertiginous symptoms intermittently, chest pain, bifrontal headache, and left upper extremity weakness and numbness about 5 days prior to admission which has been consistent. Currently she continues to have vision problems particularly to the left and the left upper extremity numbness and weakness. The other symptoms have resolved. On examination neurologically she has at least a partial left homonymous hemianopsia and her left upper extremity weakness is somewhat improved. Left lower extremity is weak but this is chronic (from previous lumbar spine surgery). I cannot tell if it is worse than previous and the patient feels it is about the same. CT scan shows a right occipital lesion of a fairly large size consistent with subacute stroke (verses tumor). Since there is no enhancement with contrast I do not believe this is a tumor. CT scan of the head August 13 in [facility] was reported as normal. CT angiography of the head and neck reportedly abnormal as well. I reviewed these reports I do not have the films and. I suspect a small vessel ischemic/thrombotic stroke. Risk factors include longstanding diabetes with glucose not adequately controlled, hypertension history and dyslipidemia. Unfortunately, the patient cannot get an MRI because of her implanted neurostimulator in the lumbar spine. (2) Lumbar back pain: Patient has a history of chronic low back pain post multiple lumbar spine surgeries about [address] Wh[address] She is fairly stable with this low back pain and doing fairly well all things considered. She does not use the neurostimulator (it is turned off) because she cannot tolerate the pulsing despite multiple attempts of adjustment. She would like the neurostimulator removed. (3) Neuropathy: Patient has a history of peripheral polyneuropathy involving predominantly sensory fibers likely from her diabetes. This is stable although it does give her some dysesthesias. She is on very low-doses of amitriptyline (10 mg at bedtime for sleep and pain) and gabapentin (100 mg at bedtime). Neither of thes e medications seem to help her leg cramping and sleep. Recommendations: 1. I spoke with Dr. Whiting yesterday and he is going to arrange stimulator removal as an outpatient in 4 weeks or so 2. We will obtain the CT scan films from August 13 to review. If these are normal referable to the right occipital head region, as they report, then this would solidify the diagnosis of stroke as opposed to tumor. 3. Control glucose as you are doing. Hopefully the hemoglobin A1c will come down closer to 6.0 time. 4. Control blood pressure as you are doing, aiming for a mean arterial pressure of approximately 100. 5. This patient would be a high dose statin candidate in lieu of her age, clinical picture, lipid profile parameters. 6. Agree with levothyroxine 50 mcg daily since her TSH was borderline high at 4.22. 7. Increase activity as able consider physical and occupational therapy consults. 8. The patient will need an ophthalmology consultation as an outpatient, especially to map out visual brock formally. 9. Initiate Plavix 75 mg daily. 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 10. Agree with discontinuing amitriptyline and increasing gabapentin to 300 mg each evening for control of leg cramping, and sleep. This can be titrated further as an outpatient as needed. 11. Patient needs a new primary care physician and I would suggest Dr. Sanchez and the [facility]. 12. I can follow as an outpatient, if desired, also. 13. Once her stimulator is removed will likely obtain an MRI of the brain as an outpatient. Overall, I spent a total of 45 minutes with this case, including review of records, review of CT films, direct evaluation the patient at bedside, and discussion of the case with the patient at bedside, nursing staff , Dr. Hitchcock in Radiology, and Dr. Conway, including differential diagnosis and treatment options. Subjective Patient feels about the same this morning as she did yesterday. She feels that her left upper extremity may be a little bit better with strength and there is a little less numbness and tingling. Her vision is about the same. She has no headache or pain. She is not dizzy. She is walking fairly stable. Nursing reports no new events overnight. The pressure is 145/80. Pulse in the 50s and regular. CBC is unremarkable. Chem profile is unremarkable except for glucose of 128. Fasting lipid profile shows triglycerides of 144, total cholesterol 212, LDL of 135. CT report from August 13 from the [facility] was reportedly unremarkable. CT angiography of the head and neck reports were unremarkable as well. We do not have these films yet. I reviewed both CT scans from our institution over the last [address] Hitchcock. The right occipital lesion appears to be a posterior cerebral artery distribution and most consistent with stroke. CT scan from yesterday showed no enhancement with contrast. Physical Exam Physical Exam: She is awake and alert. Speech is without aphasia or dysarthria. Mood and affect seem normal appropriate. Thought processes are intact. Extraocular muscles are intact nystagmus. There is no facial droop. She cannot see off to the left as before (unchanged). There is no obvious drift in the left upper extremity and strength seems closer to 5/5 on the left , improved compared to yesterday slightly. She has no ataxia or abnormal involuntary. Results & Data Vital Signs (Past 12 Hours) Vital Signs Temp Pulse Pulse Resp BP Pulse Ox 08/19/18 07:47 36.5 C 49 L 18 139/84 95 08/19/18 04:00 36.6 C 50 L 16 145/80 H 95 08/19/18 02:07 55 L 08/18/18 23:05 36.6 C 53 L 16 134/[address] SCAN OF THE BRAIN COMBO CLINICAL HISTORY: Follow-up right occipital lobe abnormality. Blurry vision. COMPARISON STUDY: CT of the brain dated 08/17/2018. TECHNIQUE: Axial CT scan of the brain is performed from the vertex to the skull base before and following the IV administration of 90 cc of Optiray 320. IV contrast was administered without complication. A dose lowering technique was utilized adhering to the principles of ALARA. CT DOSE: 1074.96 mGy.cm FINDINGS: Brain parenchyma: There is unchanged appearance of focal edema within the right occipital lobe. The overlying cortex remains preserved. No abnormal postcontrast enhancement is clearly identified. No additional foci of abnormality are edna ntified. There are age-related involutional changes noting mild subcortical and periventricular microangiopathic change. There is no hemorrhage or midline shift. No extra-axial fluid collection is seen. Ventricles, sulci, cisterns: Prominent secondary to involutional change. Intracranial vasculature: There is atherosclerotic calcification of the cavernous carotid arteries. Calvarium: Unremarkable. Sinuses and mastoids: The visualized paranasal sinuses are clear. The mastoid air cells are well pneumatized. Orbits: The bony orbits are grossly intact. IMPRESSION: 1. There is unchanged appearance of focal edema within the right occipital lobe as compared to yesterday. No postcontrast enhancement is clearly identified. The appearance remains atypical for subacute ischemia given preservation of the overlying cortex, and a mass lesion is still favored. If possible, correlation with a contrast-enhanced MRI would provide right much better assessment. 2. There is no hemorrhage or midline shift. 3. No additional foci of edema are identified. Electronically signed by: Byron Montes M.D. 08/18/2018 7:59 PM
[2018-08-19 08:16] LABS: Estimated Average Glucose 200 mg/dl; Hemoglobin A1C 8.6 % (4.5-5.6)
[2018-08-19] MEDS: OXYBUTYNIN CHLORIDE XL 5 MG TABCR PO SCH (08:28)
[2018-08-19] MEDS: PANTOprazole 40 MG TAB PO SCH (08:28)
[2018-08-19] MEDS: LOSARTAN POTASSIUM 50 MG TAB PO SCH (08:28)
[2018-08-19] MEDS: ATORVASTATIN 10 MG TAB PO SCH (08:29)
[2018-08-19] MEDS: CALCIUM 600MG + VIT D 400 IU TAB PO SCH (08:29)
[2018-08-19] MEDS: METOPROLOL TARTRATE 50 MG TAB PO SCH (08:29)
[2018-08-19] MEDS: CHLORTHALIDONE 25 MG TAB PO SCH (08:29)
[2018-08-19] MEDS: AMLODIPINE BESYLATE 5 MG TAB PO SCH (08:29)
[2018-08-19] MEDS: FLUTICASONE/SALMETEROL 250/50 (ADVAIR) 14 PUFF/1 INHALER INH SCH (08:29)
[2018-08-19] MEDS: POTASSIUM CHLORIDE 10 MEQ TABCR PO SCH (08:29)
[2018-08-19] MEDS: INSULIN ASPART 100 UNITS/ML 3 ML PEN SC SCH ×2 (08:30→11:58)
[2018-08-19] MEDS: DICLOFENAC SOD 1% GEL 100 GM TUBE EXT SCH (08:30)
[2018-08-19] MEDS: KETOCONAZOLE 2% CR 15 GM TUBE EXT SCH (08:30)
--- NOTE | 2018-08-19 09:02 | Pharmacy Report ---
Pharmacy Glycemic Short Note 2 - Date of Service August 19, 2018 - Glycemic Short BSG Results (Last 24 hours): 08/18/18 08/18/18 08/18/18 11:30 16:18 20:58 Glucose POC Glucose 144 H 133 H 151 H 08/19/18 08/19/18 06:50 07:38 Glucose 128 H POC Glucose 151 H OUTPATIENT ANTIDIABETIC REGIMEN: * Levemir 14 units with dinner * Novolog with meals using CR = 8 * Metformin 500 mg TID * A1c = 8.6% on 08/19/18 ASSESSMENT: 08/19 * Hermelinda received 39 units of insulin yesterday (14 of this being basal) * No change to causes of insulin resistance * Fasting BSG = 128 mg/dL; no change to basal insulin * Postprandial BSGs - all within range; current CR remains aggressive but hesitant to adjust with postprandial BSGs well controlled 08/18 * 63 y/o female admitted 08/17 for stroke-like symptoms. She has a history of type 2 diabetes managed with metformin + basal/bolus insulin. Recent outpatient control is unknown as no A1c is available. * She was continued on her outpatient dose of Levemir on admission and a fairly aggressive CF/CR using Novolog. Metformin is on hold during admission. * BSGs have improved and have all been within range today. Will continue same basal dose but loosen the CF for the Novolog slightly to prevent hypoglycemia if BSG becomes elevated. CR will probably need loosened in the future but hesitant to do so now with well controlled BSGs. PLAN FOR INPATIENT GLYCEMIC CONTROL: * Continue to hold outpatient oral diabetes medications * Basal insulin - no change * Levemir 14 units SQ daily w/ dinner * Bolus insulin - no change * NovoLog per scale ACHS or Q6hrs while NPO * Goal Range: Low 110 mg/dL - High 140 mg/dL * Correction Factor: 20 mg/dL/unit * Nutritional / Prandial insulin per carb ratio of 1 unit per 5 grams CHO consumed PLAN FOR DISCHARGE: * A1c = 8.6%, above goal of < 7% * Apparently patient was on prednisone for awhile and was just stopped 1 month ago, so her true A1c may be lower than this * Patient follows with [facility] in [place] and discharge counseling pharmacist encouraged her to f/u with them once home * Would recommend to continue outpatient regimen on discharge
[2018-08-19] MEDS ORDERED: CLOPIDOGREL BISULFATE 75 MG TAB PO ONE (10:11)
--- NOTE | 2018-08-19 11:12 | Pharmacy Report ---
Pharmacist Stroke Counseling - Date of Service August 19, 2018 - Scope: Pharmacy has been consulted to provide medication discharge counseling for this patient admitted with stroke-like symptoms as per the Pharmacist Discharge Counseling for Stroke Patients Protocol. - Medications on Discharge: Home Medications Medication Instructions Recorded Confirmed Caltrate 600 + D 2 tab PO QAM 03/22/18 08/17/18 Centrum Silver 1 tab PO QAM 03/22/18 08/17/18 cyclobenzaprine 10 mg PO HS 03/22/18 08/17/18 diclofenac sodium 1 applic TOPICAL BID 03/22/18 08/17/18 insulin aspart U-100 See Rx Instructions .ROUTE .COMPLEX 03/22/18 08/17/18 insulin detemir U-100 14 units SUBCUT QDD 03/22/18 08/17/18 levothyroxine 25 mcg PO QAM 03/22/18 08/17/18 losartan 100 mg PO QAM 03/22/18 08/17/18 metformin 500 mg PO TIDM 03/22/18 08/17/18 pantoprazole 40 mg PO QAM 03/22/18 08/17/18 potassium chloride 10 meq PO QAM 03/22/18 08/17/18 tocilizumab 400 mg IV MONTHLY 03/22/18 08/17/18 acetaminophen [Tylenol] 325 mg PO Q6H PRN 08/17/18 08/17/18 chlorthalidone 25 mg PO QAM 08/17/18 08/17/18 fluticasone propion-salmeterol 1 inh INHALATION BID 08/17/18 08/17/18 [Advair Diskus] ketoconazole 1 applic TOPICAL BID 08/17/18 08/17/18 meclizine 25 mg PO BID PRN 08/17/18 08/17/18 oxybutynin chloride 10 mg PO QAM 08/17/18 08/17/18 amlodipine 5 mg PO BID 08/19/18 08/19/18 New Rx's Medication Instructions Recorded ondansetron HCl [Zofran] 4 mg PO Q8H PRN #20 tab 03/22/18 atorvastatin 40 mg PO DAILY #30 tab 08/19/18 clopidogrel [Plavix] 75 mg PO DAILY #30 tab 08/19/18 gabapentin 300 mg PO HS #0 cap 08/19/18 metoprolol tartrate 50 mg PO BID #0 tab 08/19/18 - Action: The above medications, specifically ones for stroke treatment/prophylaxis, have been reviewed in detail with the patient prior to discharge. This includes indication, common adverse reactions, drug interactions, and medication administration. Medication counseling has been employed using the teach-back method to ensure understanding. - Outcome: The patient has demonstrated understanding of the medications. Please note, they are aware that the pharmacist will call them within 72 hours post-discharge to confirm that the appropriate medications are being taken and answer any further medication related questions the patient might have at that time. Contact information Individual to be contacted: self Relationship to patient (if applicable): N/A Phone number: [phone] Best time to call: anytime (this is patient's cell phone) Additional comments: Patient was a little confused today. She takes 18 different medications so she can't always keep things straight. Did know though that she takes atorvastatin. Patient was very engaged in learning and has a system for taking her medications. Her DIL is a pharmacist a [employer] [employer] in [place]. Thank you for allowing pharmacy to be involved in the care of this patient. Please call [phone] or [phone] with any additional questions
--- NOTE | 2018-08-19 16:56 | Discharge Summary ---
Date of Service August 19, 2018 Admission HPI Per Admitting Provider 63 y/o F with multiple medical complaints. Pt states that she has felt unwell since last Friday. She was noted to have lightheadedness, headache, blurry vision, L UE n/t, and chest pain. She went to the ED at [facility] and was admitted overnight. She states she had a CT scan, an ECHO, and labs done. She is uncertain what labs were checked but states she was told they were all normal. She states she was not told of any sort of CT abnormality. She states her ECHO was done in the AM and she was d/c'd shortly after but was not told the results. She continued to feel unwell and had a f/u with her PCP. She was advised to return to the ED due to ongoing sx. She returned to [facility] ED and had more testing, but was sent home from the ED. She was advised to f/u with her PCP again. She called today as her blurry vision was worse and was told that she should go to the ED. She decided to come to [facility] for additional care. She states that she was given morphine in the ED on her second visit and this has helped her headache. She states she does not usually have headache. She does not have chest pain today, but does have ongoing L UE n/t. No weakness or inabilty to use her arm. No LE weakness. Her vision is blurry b/l, but more in the L. She has never had sx like this in the past. Denies recent tick bites or rashes. Pt denies fever, SOB, LE pain or swelling. Pt states that she was constipated and with abd pain yesterday, which she attributes to morphine prior. She took colace x1 and has had diarrhea since that time. No longer with abd pain. Pt states she has not eaten much due to fatigue. Principal Diagnosis CVA Discharge Exam Constitutional WD/WN, vitals as above Eyes normal visual brock by confrontation and + anicteric sclerae Neck normal visual inspection and trachea midline Respiratory normal respiratory effort, lungs clear to auscultation Cardiovascular Rate/Rhythm: regular rate and regular rhythm Gastrointestinal (Abdomen) Inspection/Auscultation: abdomen not distended Percussion/Palpation: abdomen soft; abdomen nontender Musculoskeletal Head/Neck/Chest: normocephalic and head atraumatic Skin no rashes, warm and dry Neurologic awake; not confused Speech / Cognition: normal speech Psychiatric A+Ox3, euthymic affect Discharge Data Allergies Allergy/AdvReac Type Severity Reaction Status Date / Time pregabalin Allergy Severe SWELLING Verified 08/17/18 15:09 rofecoxib Allergy Intermediate RASH Verified 08/17/18 15:09 meloxicam AdvReac Intermediate Hives Verified 08/17/18 15:09 NSAIDS (Non-Steroidal AdvReac Intermediate gi problems Verified 08/17/18 15:09 Anti-Inflamma Consultations 08/17/18 15:51 ED Decision to Admit Stat 08/17/18 18:33 Consult Case Management - Discharge Planning Routine Consult Neurology Routine 08/18/18 10:09 HIM [Consult Health Information Management] Routine 08/18/18 13:28 Consult Orthopedic Surgery Routine Ordered Studies 08/17/18 12:53 CT head/brain wo con Stat 08/18/18 15:47 CT head/brain wo/w con Routine Hospital Course (1) Stroke-like symptoms: Seen by neurology with concern for CVA vs. malignancy. - CT head on 08/18 leaned toward CVA instead of malignancy in the right occipital lobe - Unobtain MRI due to pain stimulator -> Will get MRI once it is removed with Dr. Whiting. - Started Plavix 75mg PO daily -> Will need 4 weeks before she can hold it for the 1 week needed for her spinal stimulator removal. - Will follow up with neurology in 4 weeks. - Will follow up with ophthalmology in [place] (2) ARF (acute renal failure): Likely dehydration related to decreased PO intake. - Was 1.25 on 03/2018, up to 1.38 on admission. - Down to 1.2 on 08/18 -> Resolved. (3) Chest pain: Not present during this admission. States neg work up at OSH, however u ncertain what testing. - Echo from [facility] was normal. (4) Diabetes: - Home lantus + SSI PRN - Holding metformin - A1c was 8.6%, indicating suboptimal control. - Glycemic consult (5) Hypertension: MAP goal ~100 per neurology. - Continued home meds apart from metoprolol which was lowered to 50mg PO BID due to some bradycardia on monitor (rate of 50-60s). (6) Lumbar back pain: Spine stimulator in place, though off. - Will have it removed by Dr. Whiting after she has been on Plavix x 1 month. (7) Insomnia: Will try to simplify meds - Held amytriptyline - Increase gabapentin to 300mg PO QHS (8) Hypothyroid: TSH was mildly elevated at 4.4 this admission. No signs/symptoms of hypothyroidism. - Continue home Synthroid 25 mcg (9) Hypokalemia: 10meq QD as outpt Low normal on admission Monitor (10) Hyperlipidemia: Fasting lipids showed total cholesterol of 200 and LDL of 135. - High-dose statin candidate -> Increased to 40mg QHS (11) GERD (gastroesophageal reflux disease): Continue home meds (12) Gastroparesis: Continue home meds (13) DVT prophylaxis: SCDs Total Time Total Time Spent Total Time Spent (In Minutes): 35 Total Time Includes: Examination of the Patient and Communication With Other Providers Discharge Plan Discharge Items Patient Disposition: Home - Home Health Services Reason For Visit: STROKE LIKE SX Discharge Diagnosis: Concern for stroke Discharge Goals: Diagnostic testing and Improve disease control Activity: Resume your previous activity Driving/Machine Use Comment: Do not drive until seen by the eye doctor. Non-emergency contact: Primary Care Provider and Neurologist Call non-emergency contact if: you have any medication questions and your symptoms worsen Follow-up/Referrals: Boston Haynes MD (ophthalmology) [Other] - 09/08/18 8:45 am Zurdo Nelson MD [Physician] - 08/24/18 11:00 am (A follow-up appointment has been scheduled on your behalf with [facility] office. [address] [place] [address], [address] [place] [address] ) Abdirahman Whiting DO [Surgeon] - (Please see Dr. Whiting in follow up for spinal stimulator removal.) Opal Johnson PA-C [Physician Receiver/Laborer] - 10/07/18 3:30 pm Diet: Carb Consistent or DM2 and Heart Healthy Addtl Provider Instructions: Ms. Morales, You were admitted to the hospital with visual problems and weakness. We did a CT scan of your head which showed some changes in the occipital lobe which processes vision. Our neurologist evaluated you and recommended starting Plavix 75 mg every day to help prevent further strokes. We are also increasing your atorvastatin (Lipitor) to 40mg to also prevent strokes. We are lowering your metoprolol to 50mg by mouth twice a day because your heart rate was low while you were here (in the 50-60 range). We are hoping to arrange home health to come and take your blood pressure and help with meds at home as well. We are getting home physical therapy as well. We had hoped to get outpatient physical therapy, but home health requests that you do both at home. Please see Dr. Haynes as soon as possible for visual field testing. Do not drive before seeing the eye doctor. For sleep and neuropathy, we stopped your amitriptyline and increased our gabapentin to 300mg before bed help simplify your regimen. Finally, your A1c was 8.6% in the hospital which indicates that your blood sugars typically run a bit higher than they should. In the hospital, your blood sugars were well-controlled, so this may be a result of diet. Please work with your PCP to help get your blood sugars a little lower. The home health aides should be able to take your blood sugar as well to help keep track of it. Finally, please work with Dr. Whiting on your spinal stimulator removal. You will need to be on the Plavix for 1 month before holding it for surgery. After surgery, you will need to get the MRI that we presently cannot do. Prescriptions: New clopidogrel [Plavix] 75 mg tablet 75 mg PO DAILY Qty: 30 RF: 1 atorvastatin 40 mg tablet 40 mg PO DAILY Qty: 30 RF: 0 gabapentin 300 mg capsule 300 mg PO HS Qty: 30 RF: 0 Continued metformin 500 mg tablet 500 mg PO TIDM RF: 0 potassium chloride 10 mEq tablet extended release 10 meq PO QAM RF: 0 levothyroxine 25 mcg tablet 25 mcg PO QAM RF: 0 insulin aspart U-100 100 unit/mL insulin pen See Rx Instructions .ROUTE .COMPLEX RF: 0 insulin detemir U-100 100 unit/mL (3 mL) insulin pen 14 units subcut QDD RF: 0 tocilizumab 400 mg/20 mL (20 mg/mL) solution 400 mg IV MONTHLY RF: 0 cyclobenzaprine 10 mg Tablet 10 mg PO HS RF: 0 pantoprazole 40 mg Tablet,Delayed Release (Dr/Ec) 40 mg PO QAM RF: 0 losartan 100 mg Tablet 100 mg PO QAM RF: 0 Centrum Silver 0.4-300-250 mg-mcg-mcg Tablet 1 tab PO QAM RF: 0 diclofenac sodium 1 % Gel 1 applic TOPICAL BID RF: 0 Caltrate 600 + D 600 mg (1,500 mg)-800 unit Tablet,Chewable 2 tab PO QAM RF: 0 ondansetron HCl [Zofran] 4 mg tablet 4 mg PO Q8H PRN (Reason: nausea and vomiting) Qty: 20 RF: 0 fluticasone propion-salmeterol [Advair Diskus] 250-50 mcg/dose Blister With Device 1 inh INHALATION BID RF: 0 acetaminophen [Tylenol] 325 mg Tablet 325 mg PO Q6H PRN (Reason: Pain) RF: 0 meclizine 25 mg tablet 25 mg PO BID PRN (Reason: Dizziness) RF: 0 oxybutynin chloride 10 mg tablet extended release 24hr 10 mg PO QAM RF: 0 ketoconazole 2 % cream 1 applic topical BID RF: 0 chlorthalidone 25 mg tablet 25 mg PO QAM RF: 0 amlodipine 5 mg tablet 5 mg PO BID RF: 0 Changed metoprolol tartrate 50 mg tablet 50 mg PO BID Qty: 0 RF: 0 Discontinued amitriptyline 10 mg tablet 10 mg PO HS RF: 0 atorvastatin 10 mg Tablet 10 mg PO QAM RF: 0 gabapentin 100 mg capsule 100 mg PO HS RF: 0 Stand-Alone Forms: Medications to Prevent Stroke, Call Back Authorization, [facility] Discharge Orders: Discharge Order (Routine); Ordered 08/19/18 Ordered By: Carlos Conway Admission Data Admit Date/Time: 08/17/18 17:27 Attending Provider: Carlos Conway Admit Provider: Gwendolyn Haines Primary Care Provider: Pierre Castro Other Providers: Gwendolyn Haines ; Corby Tijerina III ; Abdirahman Whiting Service: Telemetry Other Interventions: Discharge Summary Assessment (RN) Last Done: 08/19/18 10:51 DC Date/Time DO NOT enter until pt leaves facility: 08/19/18 13:37
--- NOTE | 2018-08-21 11:07 | Pharmacy Report ---
Pharmacist Post D/C Phone Note - Phone Note: Date of phone call: August 21, 2018. Individual with whom pharmacist spoke to: ZENAIDA Prosper RUBI The following questions were reviewed during the phone call with responses listed below each: Can you tell me the medications that you are currently taking as well as when and how you take each medication? -See Table Below When have you missed any doses of your medications? - Uses [employer] rack to organize medications into AM and PM. Knows not to double up. Understands when to take vs. skip. What side effects are you having from your medications, specifically, the new medications you were started on? - Reports diarrhea (was taking metformin HS) and dry mouth and constipation (newly started on oxybutynin). What questions do you have about your medications? - Patient was confused about atorvastatin dose (did not understand the dose was incr'), but states she already called and clarified. Has been taking correct 40mg dose daily. What problems are you having obtaining your medications? - Denies any issues; has good insurance. [id number] is a [facility] Pharmacist When is your next appointment with your primary care doctor? - States 08/24/[address] Nelson Additional comments: * Spent >30 minutes on phone with patient. She was very appreciative of education received. * Patient has been taking metformin 500mg QID and noticed some diarrhea. She was previously taking metformin TID, but was told by her provider to titrate to 2000mg/day if she can tolerate. Advised need to take with food to prevent GI issues. Explained most patients take 1000mg BID, but she can take divided with meals TID if she prefers, just don't take HS. * Previously on Myrbetriq for urinary incontinence/frequency, but was not covered. Recently switched to oxybutynin ER 10mg daily. Admits to some dry mouth and constipation recently, which she did not have before. Explained that anticholinergic adverse effects of oxybutynin likely causing these symptoms and adverse effects worsen in patients >65 y/o. Recommend she discuss with PCP. Consider decr' dose to 5mg daily. In future, may want to reconsider risks vs. benefits. * Clarified that she actually takes calcium + vitamin D 1 tablet BID, not 2 tablets qAM as recorded in med rec and given during hospitalization. She is aware max calcium absorption is 500-600mg/dose. Updated med list. * Has been taking calcium and MVI in the AM; advised need to separate by at least 4 hours after taking AM levothyroxine for optimal absorption. She will move dosing to lunch and PM. * Patient has been keeping her insulin pens in the fridge - explained that she can keep the ones she is using at room temperature. * Apparently takes Advair BID "prn" - explained expiration 30 days after opening from pouch. She denies any pulmonary issues at this time. She has used albut edin in the past with relief. Recommend that she discuss with her provider to reassess Advair since she is not using regularly and likely using inhaler. Consider albuterol for prn use instead. * Patient understands to avoid NSAID's. As per the Pharmacist Discharge Counseling for Stroke Patients Protocol, this phone call has been completed within 72 hours of discharge. Thank you for allowing us to be involved in the care of this patient. - Home Medications: Home Medications Medication Instructions Recorded Confirmed Caltrate 600 + D 1 tablet BID 03/22/18 08/17/18 Centrum Silver 1 tab PO QAM 03/22/18 08/17/18 cyclobenzaprine 10 mg PO HS 03/22/18 08/17/18 diclofenac sodium 1 applic TOPICAL BID prn 03/22/18 08/17/18 insulin aspart U-100 See Rx Instructions .ROUTE .COMPLEX 03/22/18 08/17/18 insulin detemir U-100 14 units SUBCUT QDD 03/22/18 08/17/18 levothyroxine 25 mcg PO QAM 03/22/18 08/17/18 losartan 100 mg PO QAM 03/22/18 08/17/18 metformin 2000mg daily divided meals 03/22/18 08/17/18 pantoprazole 40 mg PO QAM 03/22/18 08/17/18 potassium chloride 10 meq PO QAM 03/22/18 08/17/18 tocilizumab 400 mg IV MONTHLY 03/22/18 08/17/18 acetaminophen [Tylenol] 325 mg PO Q6H PRN 08/17/18 08/17/18 chlorthalidone 25 mg PO QAM 08/17/18 08/17/18 fluticasone propion-salmeterol 1 inh INHALATION BID prn 08/17/18 08/17/18 [Advair Diskus] ketoconazole 1 applic TOPICAL BID prn 08/17/18 08/17/18 meclizine 25 mg PO BID PRN 08/17/18 08/17/18 oxybutynin chloride ER 10 mg PO QAM 08/17/18 08/17/18 amlodipine 5 mg PO BID 08/19/18 08/19/18 New Rx's Medication Instructions Recorded ondansetron HCl [Zofran] 4 mg PO Q8H PRN #20 tab 03/22/18 atorvastatin 40 mg PO DAILY #30 tab 08/19/18 clopidogrel [Plavix] 75 mg PO DAILY #30 tab 08/19/18 gabapentin 300 mg PO HS #30 cap 08/19/18 metoprolol tartrate 50 mg PO BID #0 tab 08/19/18
--- NOTE | 2018-08-26 07:36 | Orthopedic Consultation ---
Date of Consultation August 26, 2018 Assessment & Plan (1) Stroke-like symptoms: Discussion with this patient and her regarding her spinal cord stimulator. We are going to arrange an out patient appointment and schedule her for a dorsal column stimulator removal in the near future. Present on Admission?: Yes History of Present Illness Reason for Consultation: Spinal cord stimulator placement Attending Physician: Carlos Conway MD History of Present Illness This is a 63-year-old female well-known to me that had a spinal cord stimulator placed in the past. She is no longer utilizing his device it is inhibiting her from having MRI scans and would like to have it removed. Allergies Allergy/AdvReac Type Severity Reaction Status Date / Time pregabalin Allergy Severe SWELLING Verified 08/24/18 10:09 rofecoxib Allergy Intermediate RASH Verified 08/24/18 10:09 meloxicam AdvReac Intermediate Hives Verified 08/24/18 10:09 NSAIDS (Non-Steroidal AdvReac Intermediate gi problems Verified 08/24/18 10:09 Anti-Inflamma Home Medications Home Medications Medication Instructions Recorded Confirmed Type Centrum Silver 1 tab PO QAM 03/22/18 08/24/18 History cyclobenzaprine 10 mg PO HS 03/22/18 08/24/18 History insulin aspart U-100 See Rx Instructions .ROUTE .COMPLEX 03/22/18 08/24/18 History insulin detemir U-100 14 units SUBCUT QDD 03/22/18 08/24/18 History levothyroxine 25 mcg PO QAM 03/22/18 08/24/18 History losartan 100 mg PO QAM 03/22/18 08/24/18 History ondansetron HCl [Zofran] 4 mg PO Q8H PRN #20 tab 03/22/18 08/24/18 Rx pantoprazole 40 mg PO QAM 03/22/18 08/24/18 History potassium chloride 10 meq PO QAM 03/22/18 08/24/18 History tocilizumab 400 mg IV MONTHLY 03/22/18 08/24/18 History acetaminophen [Tylenol] 325 mg PO Q6H PRN 08/17/18 08/24/18 History chlorthalidone 25 mg PO QAM 08/17/18 08/24/18 History meclizine 25 mg PO BID PRN 08/17/18 08/24/18 History oxybutynin chloride 10 mg PO QAM 08/17/18 08/24/18 History amlodipine 5 mg PO BID 08/19/18 08/24/18 History atorvastatin 40 mg PO DAILY #30 tab 08/19/18 08/24/18 Rx clopidogrel [Plavix] 75 mg PO DAILY #30 tab 08/19/18 08/24/18 Rx gabapentin 300 mg PO HS #30 cap 08/19/18 08/24/18 Rx metoprolol tartrate 50 mg PO BID #0 tab 08/19/18 08/24/18 Rx calcium carbonate 600 mg(1,500 1 tab PO BID tab 08/21/18 08/24/18 History mg)-vitamin D3 800 unit chewable tablet diclofenac 1 % topical gel 2 gm TOPICAL BID PRN gm 08/21/18 08/24/18 History fluticasone 250 mcg-salmeterol 50 1 inh INHALATION BID PRN 08/21/18 08/24/18 History mcg/dose blistr powdr for inhalation ketoconazole 2 % topical cream 1 applic TOPICAL BID PRN 08/21/18 08/24/18 History metformin 500 mg tablet 1,000 mg PO BIDM tab 08/21/18 08/24/18 History Patient History Social History Preferred Language: [place] Communication Ability: Effective Beliefs That Will Affect Care: None marital status: Current Living Situation: Spouse current occupational status: disabled 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 Feels Safe at Home: Yes Smoking Status: Never smoker Hx Alcohol Use: No Hx Substance Use: No Physical Exam Physical Exam: Patient is alert and oriented cooperative with exam neurologically intact.
== END 2018-08-19 13:37 | disposition home health service (06) | DRG 65 ==
LOC: ED 12:28 → SUATTDRO 17:27 → 2S 17:27
DX: E03.9 Hypothyroidism, unspecified; Z79.899 Other long term (current) drug therapy; Z88.6 Allergy status to analgesic agent; Z82.49 Family history of ischemic heart disease and other diseases of the circulatory system; R07.9 Chest pain, unspecified; G83.24 Monoplegia of upper limb affecting left nondominant side; G89.29 Other chronic pain; I10 Essential (primary) hypertension; N17.9 Acute kidney failure, unspecified; Z96.9 Presence of functional implant, unspecified; I63.30 Cerebral infarction due to thrombosis of unspecified cerebral artery; K31.84 Gastroparesis; K21.9 Gastro-esophageal reflux disease without esophagitis; E11.43 Type 2 diabetes mellitus with diabetic autonomic (poly)neuropathy; Z79.51 Long term (current) use of inhaled steroids; Z79.4 Long term (current) use of insulin; Z88.8 Allergy status to other drugs, medicaments and biological substances; E86.0 Dehydration; M54.5 Low back pain; Z82.3 Family history of stroke; G47.00 Insomnia, unspecified; E11.42 Type 2 diabetes mellitus with diabetic polyneuropathy; E78.5 Hyperlipidemia, unspecified; H53.462 Homonymous bilateral field defects, left side; E87.6 Hypokalemia; E11.65 Type 2 diabetes mellitus with hyperglycemia

== ENCOUNTER 2022-12-17 05:55 | Observation (INO) ==
--- NOTE | 2022-12-13 08:45 | Anesthesiology Consultation ---
Date of Service December 13, 2022 Assessment & Plan (1) Encounter for pre-operative examination: Plan - check BSG and cervical spine STAT am DOS. - severe PONV per PAT RN history intake: plan will be to anesthesiologist discussion with patient and discretion am DOS. - cardiology office visit 12/12/22 [place]: "...scheduled undergo surgery with Dr. Maxwell next week for a recurrent renal cyst...stable from cardiovascular standpoint. She demonstrates excellent control of her blood pressure in the office today. Because of her complaints of tachycardia with physical activity, and her history of a paroxysmal SVT, we will increase her metoprolol tartrate dose. Highly complex medical issues were managed and discussed today..." - Ozempic instructions: Patient informed by PAT RN to stop 7 days prior to surgery. - Case discussed in detail with Dr. [place] who advised patient is acceptable to proceed without further evaluation. - Per supervisor operations on 12/06/2022: No known infectious disease contacts, current infectious disease symptoms in past 10 days or COVID positive test result in the past 90 days. Chart Review Chart Review: Acceptable Risk for Surgery and Patient NOT seen in Pre Admission Testing History Surgery Operation Date: 12/17/22 10:50 Proposed Procedures p Robotic Renal Cyst Decortication-Right - Jd Maxwell MD Height/Weight Height: 5 ft 3 in Weight: 70.76 kg Allergies Allergy/AdvReac Type Severity Reaction Status Date / Time meloxicam Allergy Intermediate Hives Verified 12/12/22 14:45 pregabalin Allergy Intermediate SWELLING Verified 12/12/22 14:45 rofecoxib Allergy Mild RASH Verified 12/12/22 14:45 dapagliflozin [From [facility]] AdvReac Mild UTI Verified 12/12/22 14:45 NSAIDS (Non-Steroidal AdvReac Mild gi Verified 12/12/22 14:45 Anti-Inflamma problems, HAS GASTROPERESIS Medications Home Medications Medication Instructions Recorded Confirmed Last Taken ocvgkost-ypp-qpccu acid 0.4 1 tab PO QPM 03/22/18 12/12/22 08/23/22 mg-lycopene 300 mcg-lutein 250 mcg tablet (Centrum Silver) calcium carbonate 600 mg-vitamin 1 tab PO BID 08/21/18 12/12/22 08/23/22 D3 20 mcg (800 unit) chewable tablet (Caltrate 600 plus D) fluticasone 250 mcg-salmeterol 50 1 inh inhalation BID PRN wheezing 08/21/18 12/12/22 12/01/19 mcg/dose blistr powdr for inhalation (Advair Diskus) blood-glucose meter (Accu-Chek #1 ea 10/08/19 12/06/22 Unknown Guide Glucose Meter) blood sugar diagnostic (Accu-Chek 09/04/20 12/06/22 Unknown Guide test strips) coenzyme Q10 75 mg capsule (Ultra 75 mg PO QAM 09/04/20 12/12/22 08/23/22 CoQ10) albuterol sulfate 90 mcg/actuation 2 puff inhalation QID PRN 04/06/21 12/12/22 Unknown aerosol inhaler (Ventolin HFA) shortness of breath or wheezing #18 grams ascorbate calcium (vitamin C) 500 500 mg PO QAM 04/06/21 12/12/22 08/23/22 mg tablet fluticasone propionate 50 2 spray intranasal UD PRN Nasal 04/06/21 12/12/22 Unknown mcg/actuation nasal Congestion spray,suspension (Flonase Allergy Relief) guaifenesin 600 mg tablet, 600 mg PO BID PRN cough #30 tabs 04/06/21 12/12/22 Unknown extended release 12 hr (Mucinex) zinc acetate 50 mg (zinc) capsule 50 mg PO QAM 04/06/21 12/12/22 08/23/22 (Galzin) lancets (Accu-Chek Fastclix Lancet 06/07/21 12/06/22 Unknown Drum) Dexcom G6 Childcare Provider (blood-glucose #1 ea 07/13/21 12/06/22 Unknown meter,continuous) pen needle, diabetic 32 gauge x #400 ea 07/13/21 12/06/22 Unknown 5/32" (BD Ultra-Fine Shannan Pen Needle) Dexcom G6 Sensor (blood-glucose #9 ea 11/22/21 12/06/22 Unknown sensor) Dexcom G6 Transmitter #1 ea 11/22/21 12/06/22 Unknown (blood-glucose transmitter) oxybutynin chloride 10 mg 10 mg PO QAM #90 tabs 04/15/22 12/12/22 05/29/22 tablet,extended release 24 hr spironolactone 50 mg tablet 50 mg PO QAM #90 tabs 07/22/22 12/12/22 08/25/22 08:00 etanercept 50 mg/mL (1 mL) 50 mg subcut WK #4 mL 08/02/22 12/12/22 08/17/22 subcutaneous pen injector (Enbrel SureClick) Dexcom G7 Childcare Provider (blood-glucose #1 ea 08/27/22 12/06/22 Unknown meter,continuous) Dexcom G7 Sensor (blood-glucose #9 ea 08/27/22 12/06/22 Unknown sensor) insulin degludec 100 unit/mL (3 8 unit (0.08 mL) subcut QPM #15 mL 08/27/22 12/12/22 Unknown mL) subcutaneous pen (Tresiba FlexTouch U-100 insulin) insulin lispro 100 unit/mL 1 - 25 unit (0.01 - 0.25 mL) 08/27/22 12/12/22 Unknown subcutaneous pen (Humalog KwikPen subcut UD #15 mL (U-100) Insulin) clopidogrel 75 mg tablet (Plavix) 75 mg PO QAM #90 tabs 09/03/22 12/12/22 Unknown levothyroxine 50 mcg tablet 50 mcg PO QAM #90 tabs 09/20/22 12/12/22 Unknown losartan 25 mg tablet 25 mg PO QAM #90 tabs 11/01/22 12/12/22 Unknown atorvastatin 40 mg tablet 40 mg PO QAM #90 tabs 11/25/22 12/12/22 Unknown semaglutide 2 mg/dose (8 mg/3 mL) 2 mg (0.75 mL) subcut WK #3 mL 11/25/22 12/12/22 Unknown subcutaneous pen injector (Ozempic) gabapentin 300 mg capsule 300 mg PO BID #240 caps 11/26/22 12/12/22 Unknown ondansetron HCl 4 mg tablet 4 mg PO Q8H #90 tabs 11/26/22 12/12/22 Unknown cyclobenzaprine 5 mg tablet 5 mg PO TID PRN muscle spasm #60 11/28/22 12/12/22 Unknown tabs linaclotide 290 mcg capsule 290 mcg PO QAM 12/06/22 12/12/22 Unknown (Linzess) pantoprazole 40 mg tablet,delayed 40 mg PO QAM 12/06/22 12/12/22 Unknown release metoprolol tartrate 25 mg tablet 25 mg PO QPM #90 tabs 12/12/22 12/12/22 Unknown metoprolol tartrate 25 mg tablet 50 mg PO QAM #180 tabs 12/12/22 12/12/22 Unknown Past Medical History Medical History Asthma has not rescue inhaler recently Decreased vision LESS THAN 50% VISION CAUSED BY STROKE Depression DM type 2 (diabetes mellitus, type 2) IDDM, dexcom monitoring device in use Fatty liver Gastroparesis GERD (gastroesophageal reflux disease) Heart murmur MILD TRICUSPID REGURG History of anemia History of colon polyps BENIGN History of stomach ulcers Hyperlipidemia Hypertension Hypokalemia "tends to run low" Hypothyroid Insulin-requiring or dependent type II diabetes mellitus Lower extremity weakness LLE WEAKNESS/NUMBNESS - CHRONIC, 2/2 LUMBAR RADICULOPATHY Lumbar back pain Nausea & vomiting Renal cyst rt side Rheumatoid arthritis Seasonal allergies Spinal stenosis Stage 3b chronic kidney disease Stroke 08/17/18 - [facility] "OCCIPITAL STROKE" -LOSS OF PERIPHERAL VISION, BLURRED VISION, LUE WEAKNESS/TINGLING - HEAD CT INCONCLUSIVE, SUSPECT SUBACUTE INFARCT VS MASS LESION - UNABLE TO OBTAIN MRI BC OF DORSAL COLUMN STIMULATOR - NEUROLOGY CONSULTED, FEEL 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 PLAVIX INITIATED. NEUROLOGIST ([facility])>no longer follows with [facility]>told to see pcp SVT (supraventricular tachycardia) follow with Dr. Goodman Past Family History Family History Father , Multiple CVAs starting in his 50s Diabetes Myocardial infarction Stroke Gallbladder disease Hypertension Mother , Uncertain type of heart issue Heart disease Lung cancer Cancer Hypertension Grandfather (Paternal) Diabetes Brother Diabetes Hypertension Sister Diabetes Cancer Gallbladder disease Hypertension Kidney disease Other No significant family history Denies family history of Ovarian cancer Prostate cancer Breast cancer Colorectal cancer Past Surgical History Surgical History Family history of reaction to anesthesia MOTHER, REMOTE HX - SLOW TO WAKE UP - NEEDED OVERNIGHT HOSPITAL STAY H/O lumbosacral spine surgery History of arthroscopy of both shoulders History of back surgery X 4 History of cholecystectomy History of colonoscopy History of esophagogastroduodenoscopy (EGD) History of hysterectomy with unilateral oophorectomy History of removal of cyst RT BREAST History of root canal procedure History of surgery PLACEMENT OF DORSAL COLUMN STIMULATOR/REMOVAL History of tonsillectomy History of tooth extraction Nausea and vomiting after administration of anesthetic agent severe S/P breast lumpectomy RT S/P cataract surgery R&L Social History Smoking Status: Never smoker Do You Dip or Chew Tobacco: No Hx Alcohol Use: No substance use type: does not use Lab Results Anesthesia Preop Results Results Anesthesia Widget: WBC 5.00 K/ul (4.8-10.8) 12/04/22 Hgb 11.4 g/dl (12.0-16.0) L 12/04/22 Hct 33.3 % (37.0-47.0) L 12/04/22 Plt 165 K/uL (130-400) 12/04/22 Na 139 mmol/L (136-145) 12/04/22 K 4.2 mmol/L (3.5-5.1) 12/04/22 Cl 107 mmol/L (98-107) 12/04/22 CO2 27 mmol/L (21-32) 12/04/22 BUN 25 mg/dl (6-23) H 12/04/22 Creat 1.45 mg/dl (0.6-1.2) H 12/04/22 Glucose Level 77 mg/dl (70-99(Fasting)) 12/04/22 Testing Electrocardiogram Date: 03/25/22 NSR, rate 69 bpm Chest X-Ray Date: 12/04/22 No evidence of acute cardiopulmonary disease Echocardiogram Date: 05/02/22 EF 65-70% Normal LV wall motion Mild cLVH Trace to mild tricuspid regurgitation Grade I diastolic dysfunction Stress Test Date: 04/12/20 Pharmacologic Normal myocardial perfusion SPECT images without evidence for pharmacologically induced ischemia Normal LV wall motion EF 63% Other Testing Abdomen pelvis CT 11/25/22 1. 6.9 x 5.6 x 5 cm right upper pole renal cyst, mildly increased in size since ultrasound of September 12, 2022 suggestive of partial reaccumulation. This cyst remains decreased in size from earlier CT of April 23, 2022. 2. Punctate left renal calculus. No ureteral calculi or hydronephrosis. 3. No acute process within the abdomen or pelvis. Cardiac event monitor 04/25/22 Primary rhythm: sinus rhythm Average HR 75 bpm. Min HR 58, max 155 bpm SVE: 0.05% SVT: 6 events, longest 29 beats PVC burden: < 0.01% Neck CTA 03/27/21 No stenosis or dissection within the major vessels of the neck.
[2022-12-17] MEDS ORDERED: LACTATED RINGER'S 1,000 ML IV SCH (06:00)
[2022-12-17] MEDS ORDERED: ceFAZolin 2000MG 2,000 MG/15 ML SYR IV SCH (06:00)
--- NOTE | 2022-12-17 06:56 | XRay Report ---
XR cervical spine w flex/ext HISTORY: 67 years-old Female lateral, neutral, flexion and extension preoperative exam COMPARISON: None TECHNIQUE: 5 views of the cervical spine FINDINGS: Multilevel degenerative changes include moderate disc space narrowing at C6-C7 and C7-T1. There is mo stly mild multilevel spondylitic spurring with mild to moderate facet arthrosis. No acute fracture or subluxation is identified. No prevertebral edema. Lung apices appear clear. IMPRESSION: No acute fracture or subluxation. ACT 112: Negative or not required by law. The above report was generated using voice recognition software. It may contain grammatical, syntax o r spelling errors. Electronically signed by: Satya Contreras M.D. 12/17/2022 6:55 AM
[2022-12-17] MEDS ORDERED: DEXAMETHASONE SOD INJ 4 MG/ML VIAL ONE (07:00)
[2022-12-17] MEDS ORDERED: fentaNYL citrate PF 100 MCG/2 ML VIAL ONE ×2 (07:00→08:31)
[2022-12-17] MEDS ORDERED: MIDAZOLAM HCL 1 MG/ML 2ML VIAL ONE (07:00)
[2022-12-17] MEDS ORDERED: PROPOFOL IV EMULSION 10 MG/ML 20 ML VIAL IV ONE (07:00)
[2022-12-17] MEDS ORDERED: ONDANSETRON INJ 2 MG/ML 2 ML VIAL ONE (07:00)
[2022-12-17] MEDS ORDERED: LIDOCAINE 2% 2 ML VIAL/AMP(20MG/ML) INFIL ONE (07:00)
[2022-12-17] MEDS ORDERED: ROCURONIUM BROMIDE 10 MG/ML 5 ML VIAL IV ONE (07:00)
[2022-12-17] MEDS ORDERED: DEXTROSE 50% 50 ML SYRINGE IV ONE ×2 (07:03→07:10)
[2022-12-17] MEDS ORDERED: ACETAMINOPHEN 1000 MG/100 ML IV IV ONE (07:14)
[2022-12-17] MEDS ORDERED: DexMEDEtomidine HCL IV 100 MCG/ML VIAL IV ONE (07:14)
[2022-12-17] MEDS ORDERED: MANNITOL 25% 12.5 GM/50 ML VIAL IV ONE (07:14)
[2022-12-17] MEDS ORDERED: BUPIVACAINE 0.5 % 5 MG/1 ML MPF 30ML VIAL ONE (07:15)
--- NOTE | 2022-12-17 07:29 | History & Physical Bridge Note ---
Date of Service December 17, 2022 History & Physical Bridge Note I have examined the patient, reviewed the History & Physical and in the interval since the performance of the History & Physical I have noted the following changes of clinical significance: no changes noted
[2022-12-17] MEDS ORDERED: LABETALOL HCL IV 5 MG/ML 20ML IV PRN (08:02)
[2022-12-17] MEDS ORDERED: FLUMAZENIL 0.1 MG/1 ML 10 ML VIAL IV PRN (08:02)
[2022-12-17] MEDS ORDERED: NALOXONE HCL 0.4 MG/1 ML VIAL/CARP IV PRN (08:02)
[2022-12-17] MEDS ORDERED: ATROPINE SULFATE 0.1 MG/ML 10ML SYR IV PRN (08:02)
[2022-12-17] MEDS ORDERED: PROMETHAZINE HCL 12.5 MG in SODIUM CHLORIDE 0.9% 50 ML IV PRN (08:02)
[2022-12-17] MEDS ORDERED: ONDANSETRON INJ 2 MG/ML 2 ML VIAL IV PRN (08:02)
[2022-12-17] MEDS ORDERED: ePHEDrine sulfate 50 MG/ML AMP IV PRN (08:02)
[2022-12-17] MEDS ORDERED: GLYCOPYRROLATE 0.2 MG/ML VIAL ONE (08:30)
[2022-12-17] MEDS ORDERED: SUCCINYLCHOLINE 100MG/5ML SYR IV ONE (08:51)
[2022-12-17] MEDS ORDERED: SUGAMMADEX SODIUM 200 MG/2 ML VIAL IV ONE (09:18)
--- NOTE | 2022-12-17 09:34 | Operative Report ---
PG Post Operative Report Pre & Post Diagnosis Operation Date: 12/17/22 07:30 <No data on this case meets the specified criteria> Pre: Renal cyst (right) Post Renal cyst (right); significant adhesions I identified the patient and participated in the time-out.: Yes Procedure Operation Date: 12/17/22 07:30 Right robotic assisted laparoscopic renal cyst decortication/removal; lysis of adhesions Surgeon Jd Maxwell MD [facility] Technician Ade Nelson Estimated Blood Loss 25 Findings Consistent with Post-Op Diagnosis Specimens Renal cyst wall Description of Procedure Patient was identified in the preoperative holding area, appropriate informed consents reviewed and completed and she was transported to the operating suite. Upon arrival she received appropriate preoperative antibiotics. She was placed in the left side down right side up lateral decubitus position with the bed flexed. She tolerated the positioning very well despite a prior lumbar spine surgery. Of note, she has a large scar on her right hemiabdomen from a prior open cholecystectomy. After inspecting the location of her scarring, I chose an area in the right lower quadrant advance a Veress needle. This advanced without difficulty and we were able to successfully insufflate her abdomen to 15 mmHg. I carefully entered the abdomen adjacent to the Veress needle with a robotic port and visual obturator. Inspection revealed some scarring along her cholecystectomy incision in the midline. After identifying good location in the midline for a 12 mm assistant women's tennis coach port, I placed this port under direct vision. I could use this port then to help work on lysis of adhesions. We spent approximately 25 minutes on lysis of adhesions. This cleared the rest of the abdominal wall for remaining port positions. I placed 2 additional robotic ports, one in the middle of her cholecystectomy incision and the other approximately 8 cm superior to it. We then docked the robot. I freed some further adhesions from the inferior aspect of the liver and incised the white line of Toldt lateral to the colon. I was able to slightly medialized the colon off the lower pole of the kidney and then continued to dissect lateral to the kidney towards the corner of the diaphragm. This allowed an approach of the kidney and renal cyst from the lateral and posterior side. We exposed the anterior surface of the renal cyst before opening the cyst and draining it. The fluid was clear. I could then inspect the internal aspect of the cyst which appeared to be healthy and unremarkable. I excised the redundant portion of the cyst utilizing the robotic scissors and electrocautery. Hemostasis was excellent. The colon remained in an appropriate position over top of the kidney and required no further manipulation. We closed the 12 mm midline port with a Damien-Danni device and a 0 Vicryl after extracting the specimen through the port. The renal cyst wall was passed off the table for pathology. The other ports were closed with a 0 Vicryl through the dermis followed by a 4-0 Monocryl through the skin. 4-0 Monocryl was used on the 12 mm midline port as well. Dermabond was placed over all incisions after they were infiltrated with half percent Marcaine. Ade Nelson assisted from incision to closure. I attest to the content of the Intraoperative Record and any orders documented therein. Any exceptions are noted below.
[2022-12-17] MEDS: fentaNYL citrate PF 100 MCG/2 ML VIAL IV PRN ×4 (09:55→10:17)
[2022-12-17 10:16] LABS: Basophils # (auto) 0.07 K/uL (0.00-0.20); Basophils % (auto) 1.6 %; Eosinophils % (auto) 2.3 %; Hematocrit (blood only) 29.9 % (37.0-47.0); Hemoglobin 10.1 g/dl (12.0-16.0); Immature Granulocytes # (auto) 0.02 K/uL (0.01-0.20); Immature Granulocytes % (auto) 0.5 %; Lymphocytes # (auto) 0.98 K/uL (1.20-3.40); Lymphocytes % (auto) 22.6 %; Mean Corpuscular Hemoglobin 29.3 pg (25.0-34.0); Mean Corpuscular Hgb Conc 33.8 g/dL (32.0-36.0); Mean Corpuscular Volume 86.7 fL (80.0-100.0); Monocytes # (auto) 0.36 K/uL (0.11-0.59); Monocytes % (auto) 8.3 %; Neutrophils # (auto) 2.81 K/uL (1.40-6.50); Neutrophils % (auto) 64.7 %; Platelet Count 130 K/uL (130-400); RDW Coefficient of Variation 12.8 % (11.5-14.5); RDW Standard Deviation 40.3 fL (36.4-46.3); Red Blood Count 3.45 M/uL (4.20-5.40); White Blood Count 4.34 K/ul (4.8-10.8)
[2022-12-17] MEDS: HYDROmorphone INJ 1 MG/ML SYRINGE IV PRN ×6 (10:25→11:10)
[2022-12-17 10:34] LABS: BUN Creatinine Ratio 14.2 (10-20); Calcium 8.7 mg/dl (8.6-10.3); Creatinine Clr Calc Pharmacy 37.9 ml/min; Est GFR (African American) 47.1 ml/min; Est GFR (Non-African American) 40.6 ml/min; Potassium 4.4 mmol/L (3.5-5.1)
[2022-12-17] MEDS ORDERED: oxyCODONE HCL IR 5 MG TAB (IMMEDIATE RELEASE) PO PRN ×2 (11:48)
[2022-12-17] MEDS ORDERED: ALBUTEROL HFA 8 GM INHALER INH PRN (11:48)
[2022-12-17] MEDS ORDERED: MoRPHine SULFATE 4 MG/ML 1 ML CARP\\VIAL IV PRN (11:48)
[2022-12-17] MEDS ORDERED: CYCLOBENZAPRINE HCL 5 MG TAB PO PRN (11:48)
[2022-12-17] MEDS ORDERED: PHARMACY GLYCEMIC MGMT CONSULT PRN (11:48)
[2022-12-17] MEDS ORDERED: MoRPHine SULFATE 2 MG/ML CARP IV PRN (11:48)
--- NOTE | 2022-12-17 11:49 | Anesthesiology Progress Note ---
Date of Service December 17, 2022 Anesthesia Post Procedure Vital Signs Vital Signs: Temp Pulse Resp BP Pulse Ox O2 Del Method O2 Flow Rate 12/17/22 10:20 36.5 C 46 L 10 L 103/53 L 100 Nasal Cannula 2 12/17/22 10:50 44 L 12 101/57 L 100 Room Air 12/17/22 11:20 36.5 C 46 L 12 103/53 L 100 Nasal Cannula 2 12/17/22 11:10 36.5 C 43 L 14 97/53 L 100 Nasal Cannula 2 12/17/22 11:00 36.5 C 50 L 10 L 101/60 100 Room Air 12/17/22 10:40 44 L 10 L 108/56 L 100 Oxymask 2 12/17/22 10:30 54 L 12 127/60 100 Oxymask 4 12/17/22 10:20 43 L 12 117/61 100 Oxymask 4 12/17/22 10:10 46 L 10 L 127/81 100 Oxymask 4 12/17/22 10:00 42 L 8 L 122/61 100 Oxymask 4 12/17/22 09:50 49 L 11 L 147/70 H 100 Oxymask 5 12/17/22 09:41 36.0 C L 59 L 16 154/73 H 100 Oxymask 8 12/17/22 07:13 36.5 C 57 L 20 134/74 100 Room Air Pain Intensity Right Abdomen: Pain Intensity: 8 Transfer of Care Handoff Completed per policy Notes Mental Status: alert / awake / arousable Patient Amnestic to Procedure: Yes Nausea / Vomiting: adequately controlled Pain: adequately controlled Airway Patency, RR, SpO2: stable & adequate BP & HR: stable & adequate Hydration State: stable & adequate Anesthetic Complications: no major complications apparent
[2022-12-17] MEDS ORDERED: FLUTICASONE/VILANTEROL 200/25MCG 14 PUFFS/INHALER INH PRN (12:12)
[2022-12-17] MEDS ORDERED: CARBOHYDRATES FOR HYPOGLYCEMIA PO PRN (12:15)
[2022-12-17] MEDS ORDERED: GLUCOSE 40% GEL 15 GM TUBE PO PRN (12:15)
[2022-12-17] MEDS ORDERED: GLUCOSE 10 TAB/TUBE PO PRN (12:15)
[2022-12-17] MEDS ORDERED: GLUCAGON FOR INJ 1 MG VIAL IM PRN (12:15)
[2022-12-17] MEDS ORDERED: DEXTROSE 50% 50 ML SYRINGE IV PRN (12:15)
[2022-12-17] MEDS: LACTATED RINGER'S 1,000 ML IV SCH ×2 (13:06→23:35)
[2022-12-17] MEDS: ACETAMINOPHEN 325 MG TAB PO SCH ×2 (13:24→20:24)
[2022-12-17] MEDS: INSULIN ASPART PER UNIT CHARGE SC SCH ×3 (13:28→20:25)
[2022-12-17] MEDS: ONDANSETRON INJ 2 MG/ML 2 ML VIAL IV PRN ×2 (14:08→19:27)
--- NOTE | 2022-12-17 14:27 | Pharmacy Report ---
Pharmacy Glycemic Short Note 2 - Date of Service December 17, 2022 - Glycemic Short BSG Results (Last 24 hours): 12/17/22 12/17/22 12/17/22 06:43 06:45 07:28 Glucose POC Glucose 57 L* 57 L* 128 H 12/17/22 12/17/22 12/17/22 08:25 09:42 09:49 Glucose 117 H POC Glucose 105 H 95 12/17/22 13:04 Glucose POC Glucose 140 H OUTPATIENT ANTIDIABETIC REGIMEN: * Tresiba 8 units SC HS * Humalog 1-25 units SC with meals per sliding scale * Per last [facility] Endocrinolog visit in August 2022, Humalog carb ratio of 1:8 with correction of 1 units for every 30 mg/dL above 150 mg/dL * Ozempic 2 mg SC every Friday * HbA1c: 5.4% (08/15/22) ASSESSMENT: * 67 yo F admitted on 12/17/22 postoperatively following a right renal cyst removal. Pharmacy has been consulted to assist with inpatient glycemic management. Patient is a Type 2 diabetic as an outpatient. Please refer to outpatient regimen and most recent HbA1c above. * Preop hypoglycemia was noted upon arrival at 57 mg/dL. According to med rec, patient has not taken any antidiabetic medications since 12/15/22. Fortunately, patient was asymptomatic, but did require 1 amp of D50 to bring BSG up to 128 mg/dL. * Postop BSG was 95 mg/dL and pre-lunch BSG was 140 mg/dL. Patient is ordered a clear liquid diet but did not eat anything significant for lunch. Will continue to monitor PO intake. Did receive 4 mg of IV dexamethasone intraoperatively. No further steroids ordered. Other stressors stable. * Will start bolus insulin based on weight/stress of 3. Will give a small one time dose of Lantus to cover for intraop steroids (0.2 units/kg). PLAN FOR INPATIENT GLYCEMIC CONTROL: * Hold outpatient oral diabetes medications * Basal insulin * Lantus 15 units SC x 1 this afternoon * Bolus insulin * NovoLog per scale ACHS or Q6hrs while NPO * Goal Range: Low 110 mg/dL - High 140 mg/dL * Correction Factor: 25 mg/dL/unit * Nutritional / Prandial insulin per carb ratio of 1 unit per 8 grams CHO consumed
[2022-12-17] MEDS ORDERED: LANTUS PER UNIT CHARGE SC ONE (14:30)
[2022-12-17] MEDS: ceFAZolin 2000MG 2,000 MG/15 ML SYR IV SCH ×2 (15:17→23:37)
[2022-12-17] MEDS: METOPROLOL TARTRATE 25 MG TAB PO SCH (20:23)
[2022-12-17] MEDS: DOCUSATE SODIUM 100 MG CAP PO SCH (20:24)
[2022-12-17] MEDS: GABAPENTIN 300 MG CAP PO SCH (20:25)
[2022-12-17] MEDS ORDERED: Nursing to Pharmacy Communication SCH ×2 (20:30→23:15)
--- NOTE | 2022-12-17 21:18 | Communication Note ---
Date of Service: December 17, 2022 I was notified by nursing staff at approximately 7:15 PM on 12/17/2022 the patient was experiencing postoperative nausea and vomiting. Patient did receive Zofran at approximately 2:00 PM on this date. I instructed the nurse to be acceptable to give the patient's next dose of Zofran earlier than scheduled and she has performed this. Due to the emergency general surgical procedure is unable to report immediately to the patient's bedside for evaluation but did go visit with the patient at approximate 9:00 PM. At this time the patient noted that her nausea and vomiting had subsided. She specifically denies any abdominal pain. She does note that in the past when she has had general anesthesia she has had significant nausea and vomiting with medicines that have been administered for anesthetic purposes. In addition she notes that her nausea and vomiting seem to correlate with the use of opioid analgesics. On physical exam the patient's abdomen is soft and nondistended and nonrigid. There is minimal to no pain with palpation of her abdomen at this time. The patient notes that due to her pain correlating with use of opioid analgesics she will attempt to use acetaminophen for pain control and at the present time this seems to be adequate.
[2022-12-18] MEDS: ONDANSETRON INJ 2 MG/ML 2 ML VIAL IV PRN (00:06)
[2022-12-18] MEDS: ACETAMINOPHEN 325 MG TAB PO SCH ×2 (02:58→08:26)
[2022-12-18] MEDS ORDERED: LEVOTHYROXINE SODIUM 50 MCG TABLET PO SCH (06:30)
--- NOTE | 2022-12-18 08:02 | Urology Progress Note ---
Date of Service December 18, 2022 Assessment & Plan (1) Renal cyst: Plan Postop day #1 status post robotic/laparoscopic cyst decortication Recovering appropriately Anesthesia causing nausea and vomiting yesterdaythis has been consistent with prior surgical experiences Plan for discharge home this morning if she appears to progress appropriately Admission and Anticipated Discharge Date Admission Date: December 17, 2022 Subjective Nausea and vomiting yesterday from the anesthesia, not distended Feeling better this morning Still not really hungry Labs pending Good urine output Pain is as expectedmostly muscular Physical Exam Physical Exam: Nondistended, soft abdomen Incisions appropriate Results & Data Vital Signs (Past 12 Hours) Vital Signs Temp Pulse Pulse Resp BP Pulse Ox O2 Del Method 12/18/22 07:19 36.5 C 69 16 112/69 96 Room Air 12/18/22 02:58 36.4 C L 63 16 131/78 95 Room Air 12/17/22 23:00 37.1 C 70 18 123/76 95 Room Air PG Care Time/CCT Total # of Minutes Spent Total Time Spent with Patient: Total time spent is greater than 50% in coordination of care (as documented) at patient's floor/unit and/or counseling patient: Coding Level of Care Code None Diagnoses Renal cyst N28.1
[2022-12-18] MEDS: METOPROLOL TARTRATE 25 MG TAB PO SCH (08:25)
[2022-12-18] MEDS: GABAPENTIN 300 MG CAP PO SCH (08:26)
[2022-12-18] MEDS: DOCUSATE SODIUM 100 MG CAP PO SCH (08:26)
[2022-12-18] MEDS: INSULIN ASPART PER UNIT CHARGE SC SCH ×2 (08:30→12:10)
[2022-12-18 08:38] LABS: Basophils # (auto) 0.03 K/uL (0.00-0.20); Basophils % (auto) 0.5 %; Eosinophils # (auto) 0.01 K/uL (0.00-0.50); Eosinophils % (auto) 0.2 %; Hemoglobin 9.9 g/dl (12.0-16.0); Immature Granulocytes # (auto) 0.01 K/uL (0.01-0.20); Immature Granulocytes % (auto) 0.2 %; Lymphocytes # (auto) 0.75 K/uL (1.20-3.40); Lymphocytes % (auto) 12.8 %; Mean Corpuscular Hemoglobin 29.6 pg (25.0-34.0); Mean Corpuscular Hgb Conc 34.1 g/dL (32.0-36.0); Mean Corpuscular Volume 86.6 fL (80.0-100.0); Monocytes # (auto) 0.46 K/uL (0.11-0.59); Monocytes % (auto) 7.9 %; Neutrophils # (auto) 4.59 K/uL (1.40-6.50); Neutrophils % (auto) 78.4 %; Platelet Count 127 K/uL (130-400); RDW Coefficient of Variation 12.8 % (11.5-14.5); RDW Standard Deviation 40.5 fL (36.4-46.3); Red Blood Count 3.35 M/uL (4.20-5.40); White Blood Count 5.85 K/ul (4.8-10.8)
[2022-12-18 08:53] LABS: Creatinine Clr Calc Pharmacy 34.5 ml/min; Est GFR (African American) 42.1 ml/min; Est GFR (Non-African American) 36.3 ml/min; Potassium 4.6 mmol/L (3.5-5.1)
[2022-12-18] MEDS ORDERED: LOSARTAN POTASSIUM 25 MG TAB PO SCH (09:00)
[2022-12-18] MEDS ORDERED: PANTOprazole 40 MG TAB PO SCH (09:00)
[2022-12-18] MEDS ORDERED: METOPROLOL TARTRATE 50 MG TAB PO SCH (09:00)
[2022-12-18] MEDS ORDERED: ATORVASTATIN 40 MG TAB PO SCH (09:00)
[2022-12-18] MEDS ORDERED: OXYBUTYNIN CHLORIDE XL 5 MG TABCR PO SCH (09:00)
[2022-12-18] MEDS ORDERED: LINACLOTIDE 145 MCG CAPSULE PO SCH (09:00)
[2022-12-18] MEDS ORDERED: SPIRONOLACTONE 25 MG TAB PO SCH (09:00)
--- NOTE | 2022-12-18 10:39 | Discharge Summary ---
Date of Service December 18, 2022 Admission HPI Per Admitting Provider Patient with large right renal cyst here for robotic/laparoscopic right renal cyst decortication. Admission Exam Per Admitting Provider Well-healed incision on the right upper quadrant Constitutional well developed and well nourished Neck neck nontender Respiratory normal respiratory effort; no respiratory distress and does not use accessory muscles Cardiovascular Rate/Rhythm: regular rate Vessels: radial pulses present Extremities: no edema Gastrointestinal (Abdomen) Inspection/Auscultation: abdomen normal to inspection Percussion/Palpation: abdomen soft; abdomen nontender and no guarding Musculoskeletal Head/Neck/Chest: normocephalic and head atraumatic Extremities: extremities normal to inspection Skin no rashes and no lesions Trauma: no evidence of skin trauma Neurologic awake; not obtunded Speech / Cognition: normal speech Motor/Sensory: no tremor Psychiatric Orientation: alert and oriented x 3 Lymphatic no lymphadenopathy Principal Diagnosis Right renal cyst Discharge Exam General: well-appearing, no acute distress HEENT: Normocephalic, mucous membranes moist Pulmonary: Nonlabored respirations Abdomen: Nondistended Extremities: Moves all 4 spontaneously Neuro: No gross deficits Psych: alert and oriented, normal mood Skin: Warm, dry, no rashes noted Discharge Data Allergies Allergy/AdvReac Type Severity Reaction Status Date / Time meloxicam Allergy Intermediate Hives Verified 12/17/22 06:49 pregabalin Allergy Intermediate SWELLING Verified 12/17/22 06:49 rofecoxib Allergy Mild RASH Verified 12/17/22 06:49 dapagliflozin [From Farxiga] AdvReac Mild yeast Verified 12/17/22 06:49 infection NSAIDS (Non-Steroidal AdvReac Mild gi Verified 12/17/22 06:49 Anti-Inflamma problems, HAS GASTROPERESIS, rash Procedures Performed Operation Date: 12/17/22 07:30 Actual Procedures p Robotic Assisted Laparoscopic Renal Cyst Decortication with Lysis of Adhesions, Right(Right) - Jd Maxwell MD Hospital Course (1) Renal cyst: Plan Postop day #1 status post robotic/laparoscopic cyst decortication Recovering appropriately Anesthesia causing nausea and vomiting yesterdaythis has been consistent with prior surgical experiences Plan for discharge home this morning if she appears to progress appropriately Patient reassessed mid morning. Tolerating liquid diet, though notes low appetite. She has been ambulating. She feels ready for discharge after lunch. Expected clinical course reviewed, all questions answered. Follow-up appointment in place. Discharge orders placed. Total Time Total Time Spent Total Time Spent (In Minutes): 29 Discharge Plan Discharge Items Patient Disposition: Home - Self-Care Reason For Visit: Renal Cyst, Percordial Chest Pain Discharge Diagnosis: Renal Cyst Activity: Per Instructions section Lifting: No more than 25 pounds Bathing Comment: Okay to shower after discharge, no tub bath or soaking Sexual Activity: Wait until after follow-up appointment Exercise/Sports: Wait until after follow-up appointment Driving/Machine Use: No driving while taking prescription pain medication Non-emergency contact: Surgeon and Urologist Call non-emergency contact if: your pain is worsening, you have a fever, your temperature is above 101, your wound has increased redness, your wound has increased drainage and your wound pain has increased Follow-up/Referrals: Jd Maxwell MD [Physician] - 01/08/23 8:45 am Rebecca Sanchez DO [Primary Care Provider] - Diet: Carb Consistent or DM2 Addtl Attending Provider Instructions: Please take all medications as prescribed and keep all follow-ups as scheduled. Please call our office at [phone] with any questions, concerns or need to reschedule appointments for any reason. We are happy to assist you. You can resume your Plavix tomorrow on 12/19. Recommend utilize Tylenol as needed for pain, do not exceed 3000 mg in 24 hours. Recovering at home: We recommend having someone with you for the first few days after surgery to help care for you. It is okay to shower tomorrow. Please avoid swimming, bathing or using hot tub until incisions are well healed. Avoid driving until you are not requiring pain medication any further. Walk at least a few times a day. Increase your distance, as you feel able. Stairs in your home are okay. Please avoid strenuous or sexual activity until your follow-up. We recommend using stool softener (i.e. Colace) to prevent constipation and straining, especially the first two weeks post operatively. Call [facility] [place] [facility] at [phone] if you experience: Chest pain or trouble breathing (call 281 or go to the hospital). Fever of 101F or higher Symptoms of infection at incision site, including redness or swelling, warmth, or bad-smelling drainage If you have catheter, and you notice: o Bloody urine or drainage that is dark red or has large clots (Please remember a small amount of blood is normal) o No drainage from the catheter for more than 6 hours o The catheter comes out of your bladder Pain that is not controlled with medicines Pending Studies at Discharge: Yes Stand-Alone Forms: My [facility] [employer], Smoking Cessation Medications and DC Order Prescriptions: Continued Caltrate 600 plus D 600 mg (1,500 mg)-800 unit tablet,chewable 1 tab PO BID fluticasone propion-salmeterol [Advair Diskus] 250-50 mcg/dose blister with device 1 inh INHALATION BID PRN (Reason: wheezing) (DME) blood-glucose meter [Accu-Chek Guide Glucose Meter] Misc See Rx Instructions [id number] .MEDSUPPLY Qty: 1 0RF Rx Instructions: As directed Uses Guide ME meter ([facility]) Dexcom G6 Aircraft Communicator Misc See Rx Instructions .ROUTE .MEDSUPPLY Qty: 1 0RF Rx Instructions: For use with Dexcom G6 transmitter and sensors ([facility]) pen needle, diabetic [BD Ultra-Fine Shannan Pen Needle] 32 gauge x 5/32" needle See Rx Instructions .ROUTE .MEDSUPPLY Qty: 400 3RF Rx Instructions: use 4 x daily (DME) Dexcom G6 Sensor Device See Rx Instructions .ROUTE .MEDSUPPLY Qty: 9 3RF Rx Instructions: Use as directed for continuous glocuse monitoring - Change sensor every 10 days (DME) Dexcom G6 Transmitter Device See Rx Instructions .ROUTE .MEDSUPPLY Qty: 1 3RF Rx Instructions: Use as directed for continuous glucose monitoring - change every 90 days oxybutynin chloride 10 mg tablet extended release 24hr 10 mg PO QAM Qty: 90 1RF Hold Instructions: ? cause nausea levothyroxine 50 mcg tablet 50 mcg PO QAM Qty: 90 3RF Rx Instructions: Take in AM on empty stomach with water 30 min prior to any other oral intake. losartan 25 mg tablet 25 mg PO QAM Qty: 90 1RF Ozempic 2 mg/dose (8 mg/3 mL) pen injector 2 mg subcut WK Qty: 3 5RF Patient Comments: aware to hold/takes on Mondays *last dose will 12/09/22 Rx Instructions: Inject 2 mg into the abdomen once weekly. atorvastatin 40 mg tablet 40 mg PO QAM Qty: 90 1RF gabapentin 300 mg capsule 300 mg PO BID Qty: 240 1RF ondansetron HCl 4 mg tablet 4 mg PO Q8H Qty: 90 0RF Patient Comments: has been taking more lately cyclobenzaprine 5 mg tablet 5 mg PO TID PRN (Reason: muscle spasm) Qty: 60 3RF Ultra CoQ10 75 mg capsule 75 mg PO QAM Enbrel SureClick 50 mg/mL (1 mL) pen injector 50 mg SUBCUT WK Qty: 4 4RF (DME) Accu-Chek Guide test strips Strip See Rx Instructions .ROUTE .MEDSUPPLY Rx Instructions: As directed check blood sugars 1 times a day (DME) lancets [Accu-Chek Fastclix Lancet Drum] Misc See Rx Instructions .ROUTE .MEDSUPPLY Rx Instructions: Test blood sugar once daily PRN fluticasone propionate [Flonase Allergy Relief] 50 mcg/actuation spray,suspension 2 spray intranasal UD PRN (Reason: Nasal Congestion) Rx Instructions: administer into each nostril ascorbate calcium (vitamin C) 500 mg tablet 500 mg PO QAM Galzin 50 mg (zinc) capsule 50 mg PO QAM albuterol sulfate [Ventolin HFA] 90 mcg/actuation HFA aerosol inhaler 2 puff INH QID PRN (Reason: shortness of breath or wheezing) Qty: 18 2RF guaifenesin [Mucinex] 600 mg tablet extended release 12hr 600 mg PO BID PRN (Reason: cough) Qty: 30 0RF Tresiba FlexTouch U-100 100 unit/mL (3 mL) insulin pen 8 unit subcut QPM Qty: 15 5RF insulin lispro [Humalog KwikPen Insulin] 100 unit/mL insulin pen 1 - 25 unit subcut UD Qty: 15 5RF Rx Instructions: To be used with sliding scale with meals. (DME) Dexcom G7 Aircraft Communicator Misc See Rx Instructions .Route Qty: 1 0RF Rx Instructions: Use to monitor blood sugars daily (DME) Dexcom G7 Sensor Device See Rx Instructions .Route Qty: 9 3RF Rx Instructions: Change sensor every 10 days metoprolol tartrate 25 mg tablet 50 mg PO QAM Qty: 180 3RF metoprolol tartrate 25 mg tablet 25 mg PO QPM Qty: 90 3RF Centrum Silver 0.4-300-250 mg-mcg-mcg Tablet 1 tab PO QPM pantoprazole [Protonix] 40 mg tablet,delayed release (DR/EC) 40 mg PO QAM Linzess 290 mcg capsule 290 mcg PO QAM spironolactone [Aldactone] 50 mg tablet 50 mg PO QAM Held clopidogrel [Plavix] 75 mg tablet 75 mg PO QAM Qty: 90 1RF Hold Instructions: Resume on 12/19/22. Patient Comments: has holding instructions Discharge Orders: Discharge Order (Routine); Ordered 12/18/22 Ordered By: Ade Nelson Admission Data Admit Date/Time: 12/17/22 09:35 Attending Provider: Jd Maxwell Admit Provider: Jd Maxwell Primary Care Provider: Rebecca Sanchez Other Interventions: Discharge Summary Assessment (RN) Last Done: 12/18/22 14:11 Coding Level of Care Code 58471 IN/OBS DISCH 30 MIN/LESS Diagnoses Renal cyst N28.1
[2022-12-18] MEDS ORDERED: INFLUENZA HI-DOSE VACCINE (HD-IIV4) (Fluzone-HD) IM ONE (12:30)
== END 2022-12-18 15:02 | disposition home or self-care (01) ==
LOC: ASU 05:55 → 3N 09:35 → INTOOBSV 09:35

== ENCOUNTER 2024-12-03 08:13 | Observation (INO) ==
--- NOTE | 2024-11-01 09:18 | PAT Medication Instructions ---
Medication Instructions Date of Service November 01, 2024 Home Medications Medication Instructions Recorded blood-glucose meter (Accu-Chek #1 ea 10/08/19 Guide Glucose Meter) albuterol sulfate 90 mcg/actuation 2 puff inhalation QID PRN 04/06/21 aerosol inhaler (Ventolin HFA) shortness of breath or wheezing #18 grams Dexcom G7 [employer] #1 ea 08/27/22 (blood-glucose,linen checker,cont) pen needle, diabetic 32 gauge x #400 ea 04/15/23/32" (BD Ultra-Fine Shannan Pen Needle) Dexcom G7 Sensor (blood-glucose #9 ea 10/20/23 sensor) etanercept 50 mg/mL (1 mL) 50 mg subcut WK #4 mL 01/07/24 subcutaneous pen injector (Enbrel SureClick) cyclobenzaprine 5 mg tablet 5 mg PO TID PRN muscle spasm #60 01/28/24 tabs insulin lispro 100 unit/mL 1 - 25 unit (0.01 - 0.25 mL) 06/03/24 subcutaneous pen (Humalog KwikPen subcut UD #30 mL (U-100) Insulin) clopidogrel 75 mg tablet (Plavix) 75 mg PO QAM #90 tabs 06/29/24 levothyroxine 50 mcg tablet 50 mcg PO QAM #90 tabs 06/29/24 ondansetron HCl 4 mg tablet 4 mg PO Q8H PRN nausea and 06/29/24 vomiting #90 tabs pantoprazole 40 mg tablet,delayed 40 mg PO QAM #90 tabs 07/05/24 release (Protonix) lrxvxzor-opb-ipbju acid 0.4 mg-lycopene 300 mcg-lutein 250 mcg tablet (Centrum Silver) 1 tab PO QPM calcium 600 mg (as carbonate)-vit D3 20 mcg (800 unit) chewable tablet (Caltrate plus D) 1 tab PO BID fluticasone 250 mcg-salmeterol 50 mcg/dose blistr powdr for inhalation (Advair Diskus) 1 inh inhalation BID PRN coenzyme Q10 75 mg capsule (Ultra CoQ10) 75 mg PO QAM albuterol sulfate 90 mcg/actuation aerosol inhaler (Ventolin HFA) 2 puff inhalation QID PRN ascorbate calcium (vitamin C) 500 mg tablet 500 mg PO QAM fluticasone propionate 50 mcg/actuation nasal spray,suspension (Flonase Allergy Relief) 2 spray intranasal UD PRN zinc acetate 50 mg (zinc) capsule (Galzin) 50 mg PO QAM etanercept 50 mg/mL (1 mL) subcutaneous pen injector (Enbrel SureClick) 50 mg subcut WK cyclobenzaprine 5 mg tablet 5 mg PO TID PRN metoprolol tartrate 25 mg tablet 25 mg PO QPM insulin lispro 100 unit/mL subcutaneous pen (Humalog KwikPen (U-100) Insulin) 1 - 25 unit (0.01 - 0.25 mL) subcut UD clopidogrel 75 mg tablet (Plavix) 75 mg PO QAM levothyroxine 50 mcg tablet 50 mcg PO QAM ondansetron HCl 4 mg tablet 4 mg PO Q8H PRN pantoprazole 40 mg tablet,delayed release (Protonix) 40 mg PO QAM insulin degludec 100 unit/mL (3 mL) subcutaneous pen (Tresiba FlexTouch U-100 insulin) 8 unit subcut QPM atorvastatin 40 mg tablet (Lipitor) 40 mg PO QAM duloxetine 60 mg capsule,delayed release 60 mg PO HS linaclotide 72 mcg capsule (Linzess) 72 mcg PO DAILY PRN losartan 25 mg tablet (Cozaar) 25 mg PO QAM metoprolol tartrate 50 mg tablet 50 mg PO QAM semaglutide 2 mg/dose (8 mg/3 mL) subcutaneous pen injector 2 mg subcut WK spironolactone 25 mg tablet (Aldactone) 25 mg PO QAM STOP 7 days before surgery semaglutide 2 mg/dose (8 mg/3 mL) subcutaneous pen injector 2 mg subcut WK Continue as directed fluticasone propionate 50 mcg/actuation nasal spray,suspension (Flonase Allergy Relief) 2 spray intranasal UD PRN(if needed) ASK your prescriber and surgeon etanercept 50 mg/mL (1 mL) subcutaneous pen injector (Enbrel SureClick) 50 mg subcut WK clopidogrel 75 mg tablet (Plavix) 75 mg PO QAM(in order for spinal or epidural anesthesia, Plavix needs to be stopped 7 days before surgery. Please check if okay with doctor that prescribes this to you) STOP taking 2 weeks before surgery (or as soon as possible if surgery is within 2 weeks) coenzyme Q10 75 mg capsule (Ultra CoQ10) 75 mg PO QAM DO NOT take the morning of surgery calcium 600 mg (as carbonate)-vit D3 20 mcg (800 unit) chewable tablet (Caltrate plus D) 1 tab PO BID ascorbate calcium (vitamin C) 500 mg tablet 500 mg PO QAM zinc acetate 50 mg (zinc) capsule (Galzin) 50 mg PO QAM insulin lispro 100 unit/mL subcutaneous pen (Humalog KwikPen (U-100) Insulin) 1 - 25 unit (0.01 - 0.25 mL) subcut UD linaclotide 72 mcg capsule (Linzess) 72 mcg PO DAILY PRN losartan 25 mg tablet (Cozaar) 25 mg PO QAM spironolactone 25 mg tablet (Aldactone) 25 mg PO QAM Take morning of surgery With a small sip of water, OTHERWISE NOTHING TO EAT OR DRINK AFTER MIDNIGHT: fluticasone 250 mcg-salmeterol 50 mcg/dose blistr powdr for inhalation (Advair Diskus) 1 inh inhalation BID PRN(use if needed; please bring with you to hospital day of surgery if possible) albuterol sulfate 90 mcg/actuation aerosol inhaler (Ventolin HFA) 2 puff inhalation QID PRN(use if needed; please bring with you to hospital day of surgery if possible) cyclobenzaprine 5 mg tablet 5 mg PO TID PRN(if needed) levothyroxine 50 mcg tablet 50 mcg PO QAM ondansetron HCl 4 mg tablet 4 mg PO Q8H PRN(if needed) pantoprazole 40 mg tablet,delayed release (Protonix) 40 mg PO QAM atorvastatin 40 mg tablet (Lipitor) 40 mg PO QAM metoprolol tartrate 50 mg tablet 50 mg PO QAM Take evening before surgery zdbrzfke-zie-huwor acid 0.4 mg-lycopene 300 mcg-lutein 250 mcg tablet (Centrum Silver) 1 tab PO QPM calcium 600 mg (as carbonate)-vit D3 20 mcg (800 unit) chewable tablet (Caltrate plus D) 1 tab PO BID fluticasone 250 mcg-salmeterol 50 mcg/dose blistr powdr for inhalation (Advair Diskus) 1 inh inhalation BID PRN(if needed) albuterol sulfate 90 mcg/actuation aerosol inhaler (Ventolin HFA) 2 puff inhalation QID PRN(if needed) cyclobenzaprine 5 mg tablet 5 mg PO TID PRN(if needed) metoprolol tartrate 25 mg tablet 25 mg PO QPM ondansetron HCl 4 mg tablet 4 mg PO Q8H PRN(if needed) insulin degludec 100 unit/mL (3 mL) subcutaneous pen (Tresiba FlexTouch U-100 insulin) 8 unit subcut QPM duloxetine 60 mg capsule,delayed release 60 mg PO HS Other Notes If you have any questions please call us at [phone] or [phone] or [phone] or [phone]
--- NOTE | 2024-11-03 12:19 | Anesthesiology Consultation ---
Date of Service November 03, 2024 Assessment & Plan (1) Encounter for pre-operative examination: Chart Review Chart Review: Acceptable Risk for Surgery (pending upcoming routine PCP appt 11/11/24) and Patient seen in Pre Admission Testing - Awaiting routine [place] PCP office visit 11/11/24 - Check BSG AM DOS Wears Dexcom either on arm or abdomen (will leave to surgeon's discretion if patient can wear during surgery or not (patient was encouraged to check with surgeon)) Severe PONV - Patient informed by nursing to stop Ozempic 7 days prior to surgery. Last dose of Ozempic scheduled 11/21/24. Will be off Ozempic x 12 days prior to DOS on 12/03/24 - Patient is NOT an OPJ candidate- currently 23 hour obs Per PAT appt on 11/03/24, no recent illness/disease exposures, illness related symptoms, or recent illness/disease positive tests. Will leave to surgeon's discretion if preop Covid testing needed [place] Neph[facility] 10/25/24= " Seen by orthopedic and recommended total knee arthroplasty in late November... Stage 3B CKD, b/l cr lately around 1.5 to 1.6 mg/dl, with history of recurrent episode of acute kidney injury. Chronic kidney disease most likely secondary to some residual renal impairment from a prior COLBY vs microvascular disease with history of hypertension, diabetes and obesity, no evidence of diabetic nephropathy... Kidney function staying relatively stable, electrolyte acceptable. Blood pressure has been well-controlled. Volume status acceptable. Avoid nephrotoxic medications including all NSAIDs, okay to take Tylenol as needed for left knee pain..." Cardiology Visit 01/26/24= "presents today for cardiologic follow up... She continues to do well from a cardiac standpoint. She notices occasional flutters which are brief, she has not had any sustained tachycardias or palpitations. Otherwise she notices a little bit of lightheadedness if she is bent over and stands back up, however this passes within seconds. Her exertional tolerance is stable. Patient has not experienced an any angina pectoris, overt signs or symptoms of heart failure, nor has she had any symptoms suggestive of a sustained tachycardia. She has not had any focal neurologic symptoms suggestive of stroke or mini stroke. She does not experience claudication with her day-to-day activities... continue medications... follow up in one year... " Robotic Renal Cyst Decortication-Right 12/17/2022= Done under GA with Grade 1 view with MAC #3. ETT #7.0. Atraumatic x 1 Teaching & Discussion Pre-Anesthesia Teaching/Discussion Notes: Instructed NPO after midnight before surgery,except medications with 15 cc of water. Medication instructions provided according to the PAT guidelines. History Surgery Operation Date: 12/03/24 08:00 Proposed Procedures p Robotic Assisted Left Total Knee Arthroplasty - Hoang Deal, Height/Weight Height: 5 ft 4 in Weight: 85.6 kg Allergies Allergy/AdvReac Type Severity Reaction Status Date / Time meloxicam Allergy Intermediate Hives Verified 10/29/24 11:33 NSAIDS (Non-Steroidal Allergy Intermediate Rash, Verified 10/29/24 11:33 Anti-Inflamma Gastrointestinal Upset pregabalin Allergy Intermediate Swelling Verified 10/29/24 11:33 all over rofecoxib Allergy Intermediate Rash, Hives Verified 10/29/24 11:33 dapagliflozin [From [facility]] AdvReac Intermediate Yeast Verified 10/29/24 11:33 Infections Medications Home Medications Medication Instructions Recorded Confirmed Last Taken [id number] acid 0.4 1 tab PO QPM 03/22/18 10/29/24 12/10/22 mg-lycopene 300 mcg-lutein 250 mcg tablet (Centrum Silver) calcium 600 mg (as carbonate)-vit 1 tab PO BID 08/21/18 10/29/24 12/10/22 D3 20 mcg (800 unit) chewable tablet (Caltrate plus D) fluticasone 250 mcg-salmeterol 50 1 inh inhalation BID PRN wheezing 08/21/18 10/29/24 12/01/19 mcg/dose blistr powdr for inhalation (Advair Diskus) blood-glucose meter (Accu-Chek #1 ea 10/08/19 10/25/24 Unknown Guide Glucose Meter) blood sugar diagnostic (Accu-Chek 09/04/20 10/25/24 Unknown Guide test strips) coenzyme Q10 75 mg capsule (Ultra 75 mg PO QAM 09/04/20 10/29/24 12/10/22 CoQ10) albuterol sulfate 90 mcg/actuation 2 puff inhalation QID PRN 04/06/21 10/29/24 Unknown aerosol inhaler (Ventolin HFA) shortness of breath or wheezing #18 grams ascorbate calcium (vitamin C) 500 500 mg PO QAM 04/06/21 10/29/24 12/10/22 mg tablet fluticasone propionate 50 2 spray intranasal UD PRN Nasal 04/06/21 10/29/24 Unknown mcg/actuation nasal Congestion spray,suspension (Flonase Allergy Relief) zinc acetate 50 mg (zinc) capsule 50 mg PO QAM 04/06/21 10/29/24 12/10/22 (Galzin) lancets (Accu-Chek Fastclix Lancet 06/07/21 10/25/24 Unknown Drum) Dexcom G7 Core Driller Helper #1 ea 08/27/22 10/25/24 Unknown (blood-glucose,project management professional,cont) pen needle, diabetic 32 gauge x #400 ea 04/15/23 10/25/24 Unknown 5/32" (BD Ultra-Fine Shannan Pen Needle) Dexcom G7 Sensor (blood-glucose #9 ea 10/20/23 10/25/24 Unknown sensor) etanercept 50 mg/mL (1 mL) 50 mg subcut WK #4 mL 01/07/24 10/29/24 Unknown subcutaneous pen injector (Enbrel SureClick) cyclobenzaprine 5 mg tablet 5 mg PO TID PRN muscle spasm #60 01/28/24 10/29/24 Unknown tabs metoprolol tartrate 25 mg tablet 25 mg PO QPM 04/29/24 10/29/24 Unknown insulin lispro 100 unit/mL 1 - 25 unit (0.01 - 0.25 mL) 06/03/24 10/29/24 Unknown subcutaneous pen (Humalog KwikPen subcut UD #30 mL (U-100) Insulin) clopidogrel 75 mg tablet (Plavix) 75 mg PO QAM #90 tabs 06/29/24 10/29/24 Unknown levothyroxine 50 mcg tablet 50 mcg PO QAM #90 tabs 06/29/24 10/29/24 Unknown ondansetron HCl 4 mg tablet 4 mg PO Q8H PRN nausea and 06/29/24 10/29/24 Unknown vomiting #90 tabs pantoprazole 40 mg tablet,delayed 40 mg PO QAM #90 tabs 07/05/24 10/29/24 Unknown release (Protonix) insulin degludec 100 unit/mL (3 8 unit subcut QPM 07/13/24 10/29/24 Unknown mL) subcutaneous pen (Tresiba FlexTouch U-100 insulin) atorvastatin 40 mg tablet (Lipitor) 40 mg PO QAM 10/29/24 10/29/24 Unknown duloxetine 60 mg capsule,delayed 60 mg PO HS 10/29/24 10/29/24 Unknown release linaclotide 72 mcg capsule 72 mcg PO DAILY PRN Constipation 10/29/24 10/29/24 Unknown (Linzess) losartan 25 mg tablet (Cozaar) 25 mg PO QAM 10/29/24 10/29/24 Unknown metoprolol tartrate 50 mg tablet 50 mg PO QAM 10/29/24 10/29/24 Unknown semaglutide 2 mg/dose (8 mg/3 mL) 2 mg subcut WK 10/29/24 10/29/24 10/25/24 subcutaneous pen injector spironolactone 25 mg tablet 25 mg PO QAM 10/29/24 10/29/24 Unknown (Aldactone) Past Medical History Medical History (Updated 11/04/24 @ 08:23 by Mariana Bernal PA-C) Adverse effect of anesthesia 2022 (*most recent surgery) - Left Wrist Cyst removal - "Heart rate and blood pressure was pretty low and they had me stay longer" procedure done at [facility] [place] Asthma prn inhaler breathing stable Decreased vision less than 50% vision loss d/t stroke Depression Diabetic peripheral neuropathy DM type 2 (diabetes mellitus, type 2) IDDM, dexcom 7 monitoring device in use - [facility] Endocrine Fatty liver Gastroparesis GERD (gastroesophageal reflux disease) well controlled and stable Heart murmur [facility] Cardiology No significant heart valve issues on 04/2022 ECHO No significant murmur noted at PAT visit 11/03/24 Heart palpitations [facility] Cardiology stable and controlled History of anemia no blood tranfusion or iron infusion History of stomach ulcers No recent issues Hyperlipidemia Hypertension Hypokalemia "tends to run low" Hypothyroidism IBS (irritable bowel syndrome) Left-sided weakness related to stoke 08/2018 [facility] - no assistive devices Lower extremity weakness LLE Weakness/Numbness, Chronic 2/2 lumbar radiculopathy Lumbar back pain Metabolic syndrome Nausea & vomiting intermittent/chronic- follows with GI Paroxysmal SVT (supraventricular tachycardia) brief, asymptomatic, short-lived episodes, April 2022 per cardio records Rheumatoid arthritis [facility] Rheumatology - Dr Sr Seasonal allergies Spinal stenosis Stage 3b chronic kidney disease (CKD) [facility] Nephrology - Dr Gonzales Stroke 08/17/2018 - [facility] "Occipital Stroke" - Loss of peripheral vision, blurred vision, LUE Weakness/tingling - Head CT inconclusive, suspect subacute infarct vs mass lesion - Unable to obtain MRI d/t dorsal column stimulator (since removed) - Neurology consulted, feel likely small vessel ischemic/thrombotic stroke. Plavix initiated. - Used to follow with [facility] Neurology Exercise / Class Metabolic Activity III < 4 Walking/Shop/Light housework (no chest pain or SOB with flat surface ambulation - uses cane PRN ) Past Family History Family History Father , Multiple CVAs starting in his 50s Diabetes Myocardial infarction Stroke Gallbladder disease Hypertension Mother , Uncertain type of heart issue Heart disease Lung cancer Cancer Hypertension Grandfather (Paternal) Diabetes Brother Diabetes Hypertension Sister Diabetes Cancer Gallbladder disease Hypertension Kidney disease Other No significant family history Denies family history of Ovarian cancer Prostate cancer Breast cancer Colorectal cancer Past Surgical History Surgical History Family history of reaction to anesthesia Mother, remote hx - slow to wake up, no need to overnight hospital stay H/O lumbosacral spine surgery History of appendectomy History of arthroscopy of both shoulders History of back surgery x4 - Hardware present History of cholecystectomy History of colonoscopy History of esophagogastroduodenoscopy (EGD) History of foot surgery Left History of hysterectomy with unilateral oophorectomy History of kidney surgery (12/2022) Right robotic assisted laparoscopic renal cyst decortication/removal; lysis of adhesions History of removal of cyst Right Breast - benign History of removal of cyst Left wrist - [facility] History of root canal procedure History of surgery Placement of Dorsal Column Stimulator/Removal History of tonsillectomy History of tooth extraction Nausea and vomiting after administration of anesthetic agent severe S/P breast lumpectomy Right S/P cataract surgery Bilateral Past Anesthesia History No Hx of Anesthesia Complications (with exception to PONV and remote hx of low BP and HR with most recent surgery (wrist surgery 2022)) and No Family Hx of Anesthesia Complications (with exception to mother- slow to wake- just groggy- no ICU stay or reintubation) History of PONV History of PONV (improved with pre treatment of anti nausea medication ) and Hx of Motion Sickness (mild) Social History Smoking Status: Never smoker Do You Dip or Chew Tobacco: No Hx Alcohol Use: No Hx Substance Use: No substance use type: does not use Review of Systems Patient denies chest pain, shortness of breath, dyspnea on exertion, cough, wheezing, palpitations. No hx of seizures, [place], apnea/snoring. No hx of blood clots or blood transfusions Physical Exam Vital Signs VITALS BP 113/71 P 60 TEMP 97.5 SP02 99% RESP 16 Constitutional no acute distress ENMT Mouth: no TMJ clicking Thyromental Distance: > or= 3.5 Finger Breadths (3.5) Mallampati Class: III Permanent bridge to front bottom teeth Neck neck extension not limited Respiratory normal respiratory effort; no respiratory distress Auscultation: lungs clear to auscultation bilaterally; no wheezes Cardiovascular Rate/Rhythm: regular rate and regular rhythm Heart Sounds: no murmur Vessels: no carotid bruit Musculoskeletal Spine: no pain with cervical ROM Extremities: extremities normal to inspection Psychiatric Orientation: alert Lab Results Anesthesia Preop Results Results Anesthesia Widget: WBC 5.24 K/ul (4.8-10.8) 11/03/24 Hgb 11.9 g/dl (12.0-16.0) L 11/03/24 Hct 34.6 % (37.0-47.0) L 11/03/24 Plt 172 K/uL (130-400) 11/03/24 Na 138 mmol/L (136-145) 11/03/24 K 4.6 mmol/L (3.5-5.1) 11/03/24 Cl 106 mmol/L (98-107) 11/03/24 CO2 27 mmol/L (21-32) 11/03/24 BUN 23 mg/dl (6-23) 11/03/24 Creat 1.46 mg/dl (0.6-1.2) H 11/03/24 Glucose Level 87 mg/dl (70-99(Fasting)) 11/03/24 PT 10.9 Seconds (9.0-12.0) 11/03/24 PTT 26 Seconds (21-31) 11/03/24 INR 1.0 (0.9-1.1) 11/03/24 TSH 4.394 uIu/ml (0.300-4.500) 10/21/24 HA1c 7.3 % (4.5-5.6) H 11/03/24 Urine Color Yellow 10/21/24 Urine Appearance Clear (Clear) 10/21/24 Urine pH 5.5 (4.5-7.5) 10/21/24 Urine Specific G[place]ney 1.015 (1.000-1.030) 10/21/24 Urine Protein Negative (Negative) 10/21/24 Urine Glucose (UA) Negative (Negative) 10/21/24 Urine Ketones Trace (Negative) H 10/21/24 Urine Blood Negative (Negative) 10/21/24 Urine Nitrite Negative (Negative) 10/21/24 Urine Bilirubin Negative (Negative) 10/21/24 Urine Urobilinogen Negative (Negative) 10/21/24 Urine Leukocyte Esterase 1+ (Negative) H 10/21/24 Urine WBC (Auto) 0-5 /hpf (0-5) 10/21/24 Urine RBC (Auto) 0-2 /hpf (0-2) 10/21/24 Urine Hyaline Casts (Auto) 0-2 /lpf (0-2) 10/21/24 Urine Epithelial Cells (Auto) 3-5 /hpf (0-2) H 10/21/24 Urine Bacteria (Auto) None Seen (None Seen) 10/21/24 Blood Type O Positive 11/03/24 Antibody Screen NEGATIVE 11/03/24 Testing Laboratory Results Anemia chronic/stable/improved from previous Elevated creatinine - chronic and stable 10/21/24= UA: Trace urine ketones, 1+ urine leukocyte esterase, 3-5 epithel cells Electrocardiogram Date: 11/03/24 SR with premature supraventricular complexes at 60bpm Low voltage QRS Poor R wave progression, consider anterior [place] vs lead placement vs LVH When compared to EKG from Mar 25, 2022- premature supraventricular complexes are now present per cardio Chest X-Ray Date: 11/03/24 Findings: + NAD Echocardiogram Date: 05/02/22 EF 65-70% Normal LV wall motion Mild cLVH Trace to mild tricuspid regurgitation Grade I diastolic dysfunction Stress Test Date: 04/12/20 Type: nuclear Pharmacologic Normal myocardial perfusion SPECT images without evidence for pharmacologically induced ischemia Normal LV wall motion EF 63% Cervical Spine Date: 11/03/24 Straightening of the cervical lordosis seen. Small to medium sized degenerative osteophytes off the endplates of C2 down through C7. Mild reduced disc space seen in cervical spine at C6-C7 and C7-T1 levels.\\E\\4. No acute bony abnormality noted. Other Testing Cardiac event monitor 04/25/22 Primary rhythm: sinus rhythm Average HR 75 bpm. Min HR 58, max 155 bpm SVE: 0.05% SVT: 6 events, longest 29 beats PVC burden: < 0.01% Neck CTA 03/27/21 No stenosis or dissection within the major vessels of the neck.
[~2024-12-03 08:13] MED LIST changes: -ADAL40KI INJ; +BUPIVACAINE 0.25% PF 30 ML VIAL ONE; +BUPIVACAINE 0.5 % 5 MG/1 ML PF 10ML VIAL ONE; +ROPIV 0.5% 246mg, Ketorolac 30mg, EPINEPHrine 0.5mg in NSS INFIL SCH; +ROPIVACAINE 0.5% 5 MG/ML 30 ML VIAL ONE; -TRAM-10 PO
[2024-12-03] MEDS: dexAMETHasone**PF** 10 MG/ML VIAL IV SCH (08:48)
[2024-12-03] MEDS: GABAPENTIN 300 MG CAP PO SCH (08:48)
[2024-12-03] MEDS: ACETAMINOPHEN 500 MG TAB PO SCH ×2 (08:48→15:17)
[2024-12-03] MEDS: LR 60ML/HR IV SCH (08:49)
[2024-12-03] MEDS: FAMOTIDINE 20 MG TAB PO SCH (08:49)
[2024-12-03] MEDS: LR 500ML BOLUS, THEN 15ML/HR IV SCH (09:10)
--- NOTE | 2024-12-03 09:24 | History & Physical Bridge Note ---
Date of Service December 03, 2024 History & Physical Bridge Note I have examined the patient, reviewed the History & Physical and in the interval since the performance of the History & Physical I have noted the following changes of clinical significance: no changes noted
[2024-12-03] MEDS ORDERED: MIDAZOLAM HCL 1 MG/ML 2ML VIAL ONE (09:32)
[2024-12-03] MEDS ORDERED: PROPOFOL IV EMULSION 10 MG/ML 20 ML VIAL IV ONE (09:57)
[2024-12-03] MEDS ORDERED: LIDOCAINE 2% 2 ML VIAL/AMP(20MG/ML) INFIL ONE (09:58)
[2024-12-03] MEDS: TRANEXAMIC ACID 1,000 MG **IV Pre-op IV SCH (09:58)
[2024-12-03] MEDS ORDERED: KETAMINE HCL 10MG/ML SYR ONE (09:58)
[2024-12-03] MEDS ORDERED: ATROPINE SULFATE 0.1 MG/ML 10ML SYR IV PRN (10:23)
[2024-12-03] MEDS ORDERED: ONDANSETRON INJ 2 MG/ML 2 ML VIAL IV PRN ×2 (10:23→13:58)
--- NOTE | 2024-12-03 11:32 | Operative Report ---
PG Post Operative Report Pre & Post Diagnosis Operation Date: 12/03/24 10:00 Pre-Op Diagnosis: Left Knee Osteoarthritis Post-Op Diagnosis: Left Knee Osteoarthritis I identified the patient and participated in the time-out.: Yes Procedure Operation Date: 12/03/24 10:00 Actual Procedures p Robotic Assisted Left Total Knee Arthroplasty(Left) - Hoang Deal DO Surgeon Hoang Deal DO Farm Management Agent Victoria Morales PA-C Estimated Blood Loss 30 Findings Consistent with Post-Op Diagnosis Specimens Left femoral and tibial bone Description of Procedure Implants used: I used a Henrik Persona total knee arthroplasty system with a size 9 PS standard femur, E tibia, 32 patella, and a size 10 CPS polyethylene bearing. All comp onents were press-fit. Hermelinda arrived [facility] for the above procedure. She was seen in the preoperative holding area and the operative extremity was identified and signed. She was given a preoperative antibiotic, TXA, a spinal anesthetic and an adductor nerve block. She was taken back to the operating room and laid on the table in supine position. She was given basic sedation. The operative knee was then prepped and draped in sterile fashion. A timeout was done, and the patient and the operative extremity was properly identified. A midline incision was made directly over the patella. Dissection was taken down to the extensor mechanism. A medial parapatellar arthrotomy was used. The medial retinaculum was released and the fat pad was mostly excised. The knee was flexed and the ACL, PCL, and meniscus were removed. The alignment of the knee replacement was assisted with a [employer]-OP robotic knee. The femoral array was pinned in the distal femur and the tibial array was pinned using a percutaneous technique in the upper shaft of the tibia. The robot was appropriately calibrated and the structure of the knee was mapped out. The components were then manipulated on the screen to account for any malalignment and to assist in gap balancing. Once I was happy with the placement of the components on the screen, a distal femoral cutting guide was brought in place. The distal femur was then resected. The femur measured to be a size 9. A 4-in-1 cutting block was then put into place by the robot and 2 peg holes were drilled. The 4-in-1 cutting block was then impacted into place and anterior, posterior, and chamfer cuts were made. The cutting block was then brought down to the tibia and pinned into place. The proximal tibia was then resected. The posterior aspect of the knee was then opened up and any additional meniscus fragments and osteophytes were removed. The tibia measured to be a size E. The tibial plate was then placed in the appropriate rotation and the tibia was drilled and punched. Trial components were then placed. The patella was then everted and 9 mm was resected off the posterior aspect of the patella. The patella measured to be a size 32. 3 peg holes were then drilled. A trial patella was placed. A size 10 CPS polyethylene insert was then trialed. The knee was brought through a full range of motion and felt to be stable. Trial components were then removed. The surrounding soft tissues were injected with 100 cc of an orthopedic pain control cocktail. All components were then press-fit in the place. The final polyethylene insert was then snapped into place. The tourniquet was deflated. Hemostasis was obtained. A dilute betadyne lavage was then done for 3 minutes. The joint was then irrigated with normal saline solution. The medial parapatellar arthrotomy was then closed with #1 Vicryl suture. The skin was closed with 2-0 Vicryl, 3-0V lock suture, and [place] Zipline. A soft compressive dressing was placed. She was then transferred to a hospital bed and taken to the postanesthesia care unit in stable condition. She tolerated the procedure well. Victoria Morales PA-C, was present for the entire procedure. He was critical for patient positioning, prepping, draping, retraction exposure, wound closure and application of sterile dressing. I attest to the content of the Intraoperative Record and any orders documented therein. Any exceptions are noted below.
--- NOTE | 2024-12-03 13:16 | XRay Report ---
XR knee LT 1 or 2V routine CLINICAL HISTORY: Surgical Post Op COMPARISON: None FINDINGS: Left knee prosthesis shows no hardware complication. There is expected soft tissue gas. IMPRESSION: Unremarkable postoperative exam. ACT 112: Negative or not required by law. Electronically signed by: Phillip Paez M.D. 12/03/2024 1:14 PM
[2024-12-03] MEDS ORDERED: PHARMACY GLYCEMIC MGMT CONSULT PRN (13:58)
[2024-12-03] MEDS ORDERED: METOCLOPRAMIDE HCL INJ 5 MG/ML 2 ML VIAL IV PRN (13:58)
[2024-12-03] MEDS ORDERED: CYCLOBENZAPRINE HCL 5 MG TAB PO PRN (13:58)
[2024-12-03] MEDS ORDERED: FLUTICASONE PROPIONATE NA SPR 16 GM BTL NAE PRN (13:58)
[2024-12-03] MEDS ORDERED: diphenhydrAMINE Capsule 25 MG CAP PO PRN (13:58)
[2024-12-03] MEDS ORDERED: ALBUTEROL HFA 8 GM INHALER INH PRN (13:58)
[2024-12-03] MEDS ORDERED: FLUTICASONE/SALMETEROL 250/50 (ADVAIR) 14 PUFF/1 INHALER INH PRN (13:58)
[2024-12-03] MEDS ORDERED: NALOXONE HCL 0.4 MG/1 ML VIAL/CARP IV PRN (13:58)
[2024-12-03] MEDS ORDERED: MAGNESIUM HYDROXIDE SUSP 30 ML UDC PO PRN (13:58)
[2024-12-03] MEDS ORDERED: ONDANSETRON 4 MG OD TAB PO PRN (14:49)
--- NOTE | 2024-12-03 14:52 | Pharmacy Report ---
Pharmacy Glycemic Short Note 2 - Date of Service December 03, 2024 - Glycemic Short BSG Results (Last 24 hours): 12/03/24 12/03/24 08:44 12:02 POC Glucose 167 H 134 H OUTPATIENT ANTIDIABETIC REGIMEN: * Tresiba 8 units SQ q PM * Humalog sliding scale with meals * semaglutide 2mg SQ weekly HbA1c: 7.3% on 11/03/24 ASSESSMENT: * Hermelinda is a 69 year old female who was admitted today for a left total knee arthroplasty. (POD #0). Pharmacy was consulted for glycemic management postop. * BSG preop was 167mg/dL and post op was 134mg/dL. She did receive dexamethasone 10mg iv x 1 preop. A weight based bolus insulin regimen with a stress of 2 was started and a Lantus scale (0,5, or 10 units depending on BSG) was added for HS. PLAN FOR INPATIENT GLYCEMIC CONTROL: * Hold outpatient diabetes medications * Basal insulin * Lantus scale at HS (0,5, or 10 units depending on BSG) * Bolus insulin * NovoLog per scale ACHS or Q6hrs while NPO * Goal Range: Low 110 mg/dL - High 140 mg/dL * Correction Factor: 25 mg/dL/unit * Nutritional / Prandial insulin per carb ratio of 1 unit per 9 grams CHO consumed
[2024-12-03] MEDS ORDERED: CARBOHYDRATES FOR HYPOGLYCEMIA PO PRN (15:00)
[2024-12-03] MEDS ORDERED: GLUCOSE 40% GEL 15 GM TUBE PO PRN (15:00)
[2024-12-03] MEDS ORDERED: DEXTROSE 50% 50 ML SYRINGE IV PRN (15:00)
[2024-12-03] MEDS ORDERED: GLUCOSE 10 TAB/TUBE PO PRN (15:00)
[2024-12-03] MEDS ORDERED: GLUCAGON FOR INJ 1 MG VIAL SQ PRN (15:00)
[2024-12-03] MEDS: SODIUM CHLORIDE 0.9% 1,000 ML IV SCH (15:18)
[2024-12-03] MEDS: INSULIN ASPART PER UNIT CHARGE SC SCH (17:24)
[2024-12-03] MEDS: SENNA 8.6 MG TAB PO SCH (20:56)
[2024-12-03] MEDS: DOCUSATE SODIUM 100 MG CAP PO SCH (20:56)
[2024-12-03] MEDS: ASPIRIN 81 MG ECTAB PO SCH (20:59)
[2024-12-03] MEDS: CALCIUM 600MG + VIT D 400 IU TAB PO SCH (21:00)
[2024-12-03] MEDS: METOPROLOL TARTRATE 25 MG TAB PO SCH (21:01)
[2024-12-03] MEDS: CEROVITE ADV FORMULA TAB PO SCH (21:01)
[2024-12-03] MEDS: LANTUS PER UNIT CHARGE SC SCH (21:08)
[2024-12-04 00:01] VITALS: RESP 18
[2024-12-04] MEDS: INSULIN ASPART PER UNIT CHARGE SC SCH (02:20)
[2024-12-04] MEDS: LEVOTHYROXINE SODIUM 50 MCG TABLET PO SCH (06:19)
[2024-12-04 07:32] VITALS: BP 134/78; PULSE 62; TEMP 97.3; O2SAT 96
--- NOTE | 2024-12-04 08:54 | Orthopedic Progress Note ---
Date of Service December 04, 2024 Assessment & Plan (1) Status post total left knee replacement not using cement: Overall she is doing very well. She is not having much pain in the left knee. She will be seen by physical therapy today for ambulation and range of motion exercises. The nursing staff can change her dressing after physical therapy. She can be discharged to home later today. She is on aspirin for DVT prophylaxis. She will follow-up with orthopedics in 2 weeks. Jeremi Shen was seen and examined at bedside this morning. Overall she is doing very well. She is not having much pain in the left knee. She has been up and ambulating to the bathroom. She has no complaints.. Review of Systems All systems reviewed & are unremarkable except as noted in HPI & below. Physical Exam On physical exam of the left knee, the dressing is clean and dry. Her leg is out full extension. She has active dorsiflexion and plantarflexion of her left ankle.. Results & Data Results & Data Laboratory Results . Diagnostic Findings Postoperative x-rays of the left knee show the prosthesis to be in anatomic alignment without any evidence of fracture, dislocation, or loosening.. PG Care Time/CCT Total # of Minutes Spent Total Time Spent with Patient: Total time spent is greater than 50% in coordination of care (as documented) at patient's floor/unit and/or counseling patient: Coding Level of Care Code 70569 Post Operative Follow-Up Diagnoses Status post total left knee replacement not using cement Z96.652
[2024-12-04] MEDS: LOSARTAN POTASSIUM 25 MG TAB PO SCH (08:58)
[2024-12-04] MEDS: ASCORBIC ACID 500 MG TAB PO SCH (08:58)
[2024-12-04] MEDS: ATORVASTATIN 40 MG TAB PO SCH (08:58)
[2024-12-04] MEDS: CLOPIDOGREL BISULFATE 75 MG TAB PO SCH (08:58)
[2024-12-04] MEDS: MULTIVITAMIN TAB PO SCH (08:58)
[2024-12-04] MEDS: ZINC SULFATE 220 MG CAPSULE PO SCH (08:58)
[2024-12-04] MEDS: SPIRONOLACTONE 25 MG TAB PO SCH (08:58)
[2024-12-04] MEDS: METOPROLOL TARTRATE 50 MG TAB PO SCH (08:58)
[2024-12-04] MEDS ORDERED: NON-FORMULARY MEDICATION (Coenzyme Q10 [Ultra Coq10] 75 mg capsule) PO SCH (09:00)
== END 2024-12-04 14:05 | disposition home or self-care (01) ==
LOC: ASU 08:13 → 3E 08:13

== ENCOUNTER 2025-01-02 19:21 | Observation (INO) ==
--- NOTE | 2025-01-02 20:51 | Emergency Department Note ---
Impression & Plan Acute leg pain, Acute flank pain, Acute UTI (urinary tract infection) ED Provider Note NAME: ZENAIDA RUBI AGE: 69 SEX: F : 1955 ARRIVES VIA: Walk-In INFORMANT: Patient, ED PROVIDER(S): Jonnie Méndez DO CHIEF COMPLAINT: Leg pain HPI: The patient is a 69-year-old female who presented to the emergency department for an evaluation of leg pain. The patient is status post left knee replacement. She states the knee feels fine but she started noticing shooting pain in her left leg over the course the last 24 hours. The patient's been having problems with a kidney stone as well on her left side. She has been taking medication for pain. She has also been compliant with her other outpatient medications. She states pain is worse when she tries to walk. She denies having any coldness to her leg. She does have some numbness in the leg though. She denies having any trauma. ROS: See above HPI for pertinent positives & negatives. A total of 10 systems reviewed and were otherwise negative. PAST MEDICAL HISTORY: See Below PAST SURGICAL HISTORY: See Below FAMILY HISTORY: See Below SOCIAL HISTORY: See Below HOME MEDICATIONS: See Below ALLERGIES: See Below VITALS: See Below PHYSICAL EXAMINATION: GENERAL: The patient is awake and alert. She appears uncomfortable. EYES: The conjunctivae are clear. The pupils are round and reactive. EARS, NOSE, MOUTH AND THROAT: The nose is without any evidence of any deformity. Mucous membranes are moist. Tongue is midline. NECK: The neck is nontender and supple. RESPIRATORY: Normal respiratory effort is noted there is no evidence of wheezing rhonchi or rales CARDIOVASCULAR: Regular rate and rhythm noted there no murmurs rubs or gallops normal S1 normal S2. GASTROINTESTINAL: The abdomen is soft. Abdomen is nontender. BACK: There is no midline tenderness noted. MUSCULOSKELETAL/EXTREMITIES: There is no evidence of gross deformity full range of motion is noted in the hips and shoulders. The surgical site on the left knee is well-healed. There is no swelling in the knee. Range of motion is intact. SKIN: There is no obvious evidence of any rash. There are no petechiae, pallor or cyanosis noted. Pulses are symmetric in both feet. NEUROLOGIC: Patient is awake alert and oriented x3. Strength is symmetric in both lower extremities. MEDICAL DECISION MAKING: The patient is a 69-year-old female who presented to the emergency department with left leg pain. The patient was having very severe pain on my initial evaluation. She had a very hard time getting comfortable despite IV pain medication. Pulses were symmetric in both feet but she was status post knee arthroplasty. For this reason further laboratory and radiographic studies were obtained including ultrasound to rule out DVT and CT angiography to rule out arterial occlusion. She has been having some flank pain as well. She was found have signs of urinary tract infection on urinalysis. CT showed no acute process. Despite multiple doses of IV pain medication the patient was still uncomfortable and really did not appear to be a good candidate for outpatient management. For this reason [facility] Nursing notes reviewed. Prior medical records reviewed Vital Signs: reviewed and remarkable for no significant abnormalities Differential diagnosis: DVT, musculoskeletal, infection, joint effusion, trauma, lymphedema, idiopathic, CHF, as well as other pathologies. ER treatment provided: See below Diagnostics interpreted by me: ECG: none Cardiac Monitoring: An order was placed for continuous cardiac monitoring. The monitor shows a rate of 72 bpm with sinus rhythm. Laboratory studies: As stated above and show below. Imaging studies: See below. Radiographic imaging was reviewed by myself Consultation(s): I discussed this case with Dr. Ching who [facility]. Past Med/Surg History Problem List (Updated 01/03/25 @ 00:45 by Jonnie Méndez DO) Acute UTI (urinary tract infection) (Acute) Acute flank pain (Acute) Acute leg pain (Acute) Status post total left knee replacement not using cement Osteoarthritis of left knee Constipation Anemia of chronic disease Diabetic gastroparesis associated with type 2 diabetes mellitus Diabetic peripheral neuropathy associated with type 2 diabetes mellitus Myxoid cyst Pain in both feet Wrist pain Renal cyst rt side Erosive gastritis Rheumatoid arthritis Nausea and vomiting Heart palpitations (Acute) Obesity Stage 3b chronic kidney disease Mitral regurgitation History of colon polyps BENIGN Controlled type 2 diabetes mellitus Metabolic syndrome Vitamin D deficiency Poorly-controlled hypertension Tubular adenoma Irritable bowel syndrome with constipation Episodic peripheral vertigo Urinary incontinence New onset of headaches after age 49 Hypothyroid Medical History Paroxysmal SVT (supraventricular tachycardia) brief, asymptomatic, short-lived episodes, April 2022 per cardio records Left-sided weakness related to stoke 08/2018 [facility] - no assistive devices Adverse effect of anesthesia 2022 (*most recent surgery) - Left Wrist Cyst removal - "Heart rate and blood pressure was pretty low and they had me stay longer" procedure done at [facility] [place] Stage 3b chronic kidney disease (CKD) [facility] [place] - Dr Gonzales Rheumatoid arthritis [facility] [place] Rheumatology - Dr Sr Metabolic syndrome Hypothyroidism Heart palpitations [facility] [place] Cardiology stable and controlled Diabetic peripheral neuropathy IBS (irritable bowel syndrome) Nausea & vomiting intermittent/chronic- follows with GI History of anemia no blood tranfusion or iron infusion History of stomach ulcers No recent issues Asthma prn inhaler breathing stable Depression Fatty liver Spinal stenosis Gastroparesis Lower extremity weakness LLE Weakness/Numbness, Chronic 2/2 lumbar radiculopathy Stroke 08/17/2018 - [facility] "Occipital Stroke" - Loss of peripheral vision, blurred vision, LUE Weakness/tingling - Head CT inconclusive, suspect subacute infarct vs mass lesion - Unable to obtain MRI d/t dorsal column stimulator (since removed) - Neurology consulted, feel likely small vessel ischemic/thrombotic stroke. Plavix initiated. - Used to follow with [facility] [place] Neurology Seasonal allergies Heart murmur [facility] [place] Cardiology No significant heart valve issues on 04/2022 ECHO No significant murmur noted at PAT visit 11/03/24 DM type 2 (diabetes mellitus, type 2) IDDM, dexcom 7 monitoring device in use - [facility] [place] Endocrine GERD (gastroesophageal reflux disease) well controlled and stable Hyperlipidemia Hypokalemia "tends to run low" Decreased vision less than 50% vision loss d/t stroke Hypertension Lumbar back pain Surgical History History of foot surgery Left History of appendectomy History of removal of cyst Left wrist - [facility] [place] History of kidney surgery (12/2022) Right robotic assisted laparoscopic renal cyst decortication/removal; lysis of adhesions S/P cataract surgery Bilateral Family history of reaction to anesthesia Mother, remote hx - slow to wake up, no need to overnight hospital stay History of tooth extraction S/P breast lumpectomy Right Nausea and vomiting after administration of anesthetic agent severe History of surgery Placement of Dorsal Column Stimulator/Removal History of arthroscopy of both shoulders History of tonsillectomy History of removal of cyst Right Breast - benign History of hysterectomy with unilateral oophorectomy History of cholecystectomy History of esophagogastroduodenoscopy (EGD) History of colonoscopy History of back surgery x4 - Hardware present H/O lumbosacral spine surgery History of root canal procedure Family History Father , Multiple CVAs starting in his 50s Diabetes Myocardial infarction Stroke Gallbladder disease Hypertension Mother , Uncertain type of heart issue Heart disease Lung cancer Cancer Hypertension Grandfather (Paternal) Diabetes Brother Diabetes Hypertension Sister Diabetes Cancer Gallbladder disease Hypertension Kidney disease Other No significant family history Denies family history of Ovarian cancer Prostate cancer Breast cancer Colorectal cancer Social History Smoking Status: Never smoker Second Hand Exposure: No; Do You Dip or Chew Tobacco: No; Hx Alcohol Use: No Hx Substance Use: No Preferred Language: Grenadian Communication Ability: Effective Visual Impairment: No Limitations Hearing Ability: Normal Science Faculty Member Required: No Beliefs That Will Affect Care: None marital status: Current Living Situation: Spouse current occupational status: disabled 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 Feels Safe at Home: Yes Childhood Exposure to Second-Hand Smoke: No Diet: diabetic Diet Comment: diabetic caffeine: Yes (tea) during the past year weight has: other Dental Care, Regularly: Yes Physical Activity Frequency: 1-2 Times per Week Seatbelt Use: always Sunscreen Use: Yes Assistive Devices: Walker Allergies Allergies Allergy/AdvReac Type Severity Reaction Status Date / Time meloxicam Allergy Intermediate Hives Verified 12/28/24 11:34 NSAIDS (Non-Steroidal Allergy Intermediate Rash, Verified 12/28/24 11:34 Anti-Inflamma Gastrointestinal Upset pregabalin Allergy Intermediate Swelling Verified 12/28/24 11:34 all over rofecoxib Allergy Intermediate Rash, Hives Verified 12/28/24 11:34 dapagliflozin [From Farxiga] AdvReac Intermediate Yeast Verified 12/28/24 11:34 Infections Home Meds Home Medications Medication Instructions Recorded Confirmed glicwagz-lop-abgdc acid 0.4 1 tab PO QPM 03/22/18 12/28/24 mg-lycopene 300 mcg-lutein 250 mcg tablet (Centrum Silver) calcium 600 mg (as carbonate)-vit 1 tab PO BID 08/21/18 12/28/24 D3 20 mcg (800 unit) chewable tablet (Caltrate plus D) fluticasone 250 mcg-salmeterol 50 1 inh inhalation BID PRN wheezing 08/21/18 12/28/24 mcg/dose blistr powdr for inhalation (Advair Diskus) blood sugar diagnostic (Accu-Chek 09/04/20 12/28/24 Guide test strips) coenzyme Q10 75 mg capsule (Ultra 75 mg PO QAM 09/04/20 12/28/24 CoQ10) ascorbate calcium (vitamin C) 500 500 mg PO QAM 04/06/21 12/28/24 mg tablet fluticasone propionate 50 2 spray intranasal UD PRN Nasal 04/06/21 12/28/24 mcg/actuation nasal Congestion spray,suspension (Flonase Allergy Relief) zinc acetate 50 mg (zinc) capsule 50 mg PO QAM 04/06/21 12/28/24 (Galzin) lancets (Accu-Chek Fastclix Lancet 06/07/21 12/28/24 Drum) insulin degludec 100 unit/mL (3 8 unit subcut QPM 07/13/24 12/28/24 mL) subcutaneous pen (Tresiba FlexTouch U-100 insulin) atorvastatin 40 mg tablet (Lipitor) 40 mg PO QAM 10/29/24 12/28/24 duloxetine 60 mg capsule,delayed 60 mg PO HS 10/29/24 12/28/24 release linaclotide 72 mcg capsule 72 mcg PO DAILY PRN Constipation 10/29/24 12/28/24 (Linzess) losartan 25 mg tablet (Cozaar) 25 mg PO QAM 10/29/24 12/28/24 metoprolol tartrate 50 mg tablet 50 mg PO QAM 10/29/24 12/28/24 Previous Rx's Medication Instructions Recorded blood-glucose meter (Accu-Chek #1 ea 10/08/19 Guide Glucose Meter) albuterol sulfate 90 mcg/actuation 2 puff inhalation QID PRN 04/06/21 aerosol inhaler (Ventolin HFA) shortness of breath or wheezing #18 grams Dexcom G7 New Car Make Ready Worker #1 ea 06/20/23 (blood-glucose,roof mechanic,cont) pen needle, diabetic 32 gauge x #400 ea 04/15/2332" (BD Ultra-Fine Shannan Pen Needle) etanercept 50 mg/mL (1 mL) 50 mg subcut WK #4 mL 01/07/24 subcutaneous pen injector (Enbrel SureClick) cyclobenzaprine 5 mg tablet 5 mg PO TID PRN muscle spasm #60 01/28/24 tabs insulin lispro 100 unit/mL 1 - 25 unit (0.01 - 0.25 mL) 06/03/24 subcutaneous pen (Humalog KwikPen subcut UD #30 mL (U-100) Insulin) clopidogrel 75 mg tablet (Plavix) 75 mg PO QAM #90 tabs 06/29/24 levothyroxine 50 mcg tablet 50 mcg PO QAM #90 tabs 06/29/24 pantoprazole 40 mg tablet,delayed 40 mg PO QAM #90 tabs 07/05/24 release (Protonix) Dexcom G7 Sensor (blood-glucose #9 ea 11/09/24 sensor) metoprolol tartrate 25 mg tablet 25 mg PO QPM #90 tabs 11/09/24 ondansetron HCl 4 mg tablet 4 mg PO Q8H PRN nausea and 11/09/24 vomiting #90 tabs semaglutide 2 mg/dose (8 mg/3 mL) 2 mg (0.75 mL) subcut WK #9 mL 11/09/24 subcutaneous pen injector spironolactone 25 mg tablet 25 mg PO QAM #90 tabs 11/16/24 (Aldactone) ondansetron 4 mg disintegrating 4 mg PO Q6H PRN nausea and 12/03/24 tablet vomiting #20 tabs tamsulosin 0.4 mg capsule 0.4 mg PO DAILY #30 caps 12/28/24 Results & Data (ED) Vital Signs Vital Signs - 24 hr 01/02/25 19:27 01/02/25 20:18 01/02/25 20:37 Temperature 36.6 C Temperature Source Oral Pulse Rate 84 68 73 Pulse Rate [Apical] Pulse Rhythm Regular Pulse Rhythm [Apical] Pulse Strength [Apical] Respiratory Rate 18 18 Respiratory Effort / Characteristics Non-Labored Spontaneous Respiratory Depth Normal Respiratory Pattern Regular Blood Pressure 134/70 Blood Pressure [Right Arm] Blood Pressure Mean 91 Blood Pressure Mean [Right Arm] Blood Pressure Position Sitting Blood Pressure Position [Right Arm] Pulse Oximetry 96 98 Oxygen Delivery Method Room Air Room Air Oxygen Flow Rate Sepsis Recent Fever Within 48 Hours No Sepsis New/Unexplained Change in Mental Status No Sepsis Action Taken by Nursing No Action Required Oxygen Flow Rate - Titration Pulse Oximetry Post Tiitration 01/02/25 21:00 01/02/25 21:21 01/02/25 22:00 Temperature Temperature Source Pulse Rate 64 Pulse Rate [Apical] 88 64 Pulse Rhythm Regular Pulse Rhythm [Apical] Regular Regular Pulse Strength [Apical] Normal Normal Respiratory Rate 18 18 18 Respiratory Effort / Characteristics Non-Labored Spontaneous Non-Labored Spontaneous Respiratory Depth Normal Normal Respiratory Pattern Regular Regular Blood Pressure Blood Pressure [Right Arm] 147/110 H 138/70 Blood Pressure Mean Blood Pressure Mean [Right Arm] 122 92 Blood Pressure Position Blood Pressure Position [Right Arm] Semi-fowlers Semi-fowlers Pulse Oximetry 100 98 99 Oxygen Delivery Method Room Air Room Air Room Air Oxygen Flow Rate Sepsis Recent Fever Within 48 Hours Sepsis New/Unexplained Change in Mental Status Sepsis Action Taken by Nursing Oxygen Flow Rate - Titration Pulse Oximetry Post Tiitration 01/02/25 23:54 01/03/25 00:00 01/03/25 00:05 Temperature Temperature Source Pulse Rate 72 Pulse Rate [Apical] 74 Pulse Rhythm Pulse Rhythm [Apical] Regular Pulse Strength [Apical] Normal Respiratory Rate 18 Respiratory Effort / Characteristics Non-Labored Spontaneous Respiratory Depth Normal Respiratory Pattern Regular Blood Pressure Blood Pressure [Right Arm] 134/63 Blood Pressure Mean Blood Pressure Mean [Right Arm] 86 Blood Pressure Position Blood Pressure Position [Right Arm] Semi-fowlers Pulse Oximetry 85 L 98 Oxygen Delivery Method Room Air Nasal Cannula Nasal Cannula Oxygen Flow Rate 0 2 Sepsis Recent Fever Within 48 Hours Sepsis New/Unexplained Change in Mental Status Sepsis Action Taken by Nursing Oxygen Flow Rate - Titration 2 Pulse Oximetry Post Tiitration 99 Home Medications Current Medication List: was personally reviewed by me Laboratory Data Attestation: I reviewed the patient's lab results. 01/02/25 20:14 01/02/25 20:14 Lab Results 01/02/25 Range/Units 20:14 WBC 7.00 (4.8-10.8) K/ul RBC 3.93 L (4.20-5.40) M/uL Hgb 10.9 L (12.0-16.0) g/dl Hct 33.2 L (37.0-47.0) % MCV 84.5 (80.0-100.0) fL MCH 27.7 (25.0-34.0) pg MCHC 32.8 (32.0-36.0) g/dL RDW Std Deviation 39.8 (36.4-46.3) fL RDW Coeff of Anastacio 13.0 (11.5-14.5) % Plt Count 246 (130-400) K/uL MPV 9.6 (9.4-12.4) fL Immature Gran % (Auto) 0.3 % Neut % (Auto) 67.9 % Lymph % (Auto) 18.4 % Mcduffie % (Auto) 9.4 % Eos % (Auto) 3.0 % Baso % (Auto) 1.0 % Neut # (Auto) 4.75 (1.40-6.50) K/uL Lymph # (Auto) 1.29 (1.20-3.40) K/uL Mcduffie # (Auto) 0.66 H (0.11-0.59) K/uL Eos # (Auto) 0.21 (0.00-0.50) K/uL Baso # (Auto) 0.07 (0.00-0.20) K/uL Immature Gran # (Auto) 0.02 (0.01-0.20) K/uL Sodium 133 L (136-145) mmol/L Potassium 3.9 (3.5-5.1) mmol/L Chloride 103 (98-107) mmol/L Carbon Dioxide 22 (21-32) mmol/L Anion Gap 8 (3-11) BUN 26 H (6-23) mg/dl Creatinine 1.71 H (0.6-1.2) mg/dl Est Cr Clr Drug Dosing Not Reportable eGFR 31.84 BUN/Creatinine Ratio 15.2 (10-20) Glucose 265 H (70-99(Fasting)) mg/dl Calcium 9.7 (8.6-10.3) mg/dl Total Bilirubin 0.7 (0.2-1.0) mg/dl AST 15 (13-39) U/L ALT 16 (7-52) U/L Alkaline Phosphatase 98 (34-104) U/L Total Protein 6.8 (6.0-8.3) gm/dl Albumin 4.0 (3.4-5.0) gm/dl Globulin 2.8 (2.5-4.0) gm/dl Albumin/Globulin Ratio 1.4 (0.9-2) Lipase 32 (11-82) U/L Urine Color Dark Yellow Urine Appearance Cloudy A (Clear) Urine pH 5.0 (4.5-7.5) Ur Specific Clare 1.026 (1.000-1.030) Urine Protein Trace H (Negative) Urine Glucose (UA) Negative (Negative) Urine Ketones 1+ H (Negative) Urine Blood Negative (Negative) Urine Nitrite Negative (Negative) Urine Bilirubin Negative (Negative) Urine Urobilinogen Negative (Negative) Ur Leukocyte Esterase 2+ H (Negative) Urine WBC (Auto) >50 H (0-5) /hpf Urine RBC (Auto) 0-2 (0-2) /hpf U Hyaline Cast (Auto) >20 H (0-2) /lpf U Epithel Cells (Auto) 11-20 H (0-2) /hpf Urine Bacteria (Auto) 1+ H (None Seen) Urine Comment Administered Medications Hydromorphone HCl (Hydromorphone Inj 0.5 Mg/0.5 Ml Syr) 0.5 mg IV Q15M PRN PRN Reason: Pain Stop: 01/16/25 22:36 Last Admin: 01/02/25 23:44 Dose: 0.5 mg Documented By: Admin: 01/02/25 22:49 Dose: 0.5 mg Documented By: IDD Morphine Sulfate (Morphine Sulfate 4 Mg/Ml 1 Ml Carp\\Vial) 4 mg IV Q15M PRN PRN Reason: Pain Stop: 01/16/25 20:46 Last Admin: 01/02/25 22:01 Dose: 4 mg Documented By: Admin: 01/02/25 21:07 Dose: 4 mg Documented By: IDD Discontinued Medications Sodium Chloride (Nss) 500 mls @ 999 mls/hr IV .Q31M STA Stop: 01/02/25 21:17 Last Infusion: 01/02/25 21:49 Dose: Infused Documented By: Admin: 01/02/25 21:07 Dose: 999 mls/hr Documented By: IDD Ceftriaxone Sodium (Rocephin) 2,000 mg in 50 mls @ 100 mls/hr IV NOW STA Stop: 01/02/25 21:53 Last Infusion: 01/02/25 22:54 Dose: Infused Documented By: Admin: 01/02/25 22:01 Dose: 100 mls/hr Documented By: KYLIE Ioversol (Optiray 320 125ml) 118 ml IV ONCE ONE Stop: 01/02/25 23:29 Last Admin: 01/02/25 23:28 Dose: 118 ml Documented By: OLIVIER Ondansetron HCl (Ondansetron Inj 2 Mg/Ml 2 Ml Vial) 4 mg IV NOW STA Stop: 01/02/25 20:48 Last Admin: 01/02/25 21:07 Dose: 4 mg Documented By: KYLIE Imaging Data Attestation: I personally reviewed and interpreted this imaging study as follows: My Impression: X-ray of the left knee was obtained in the emergency department. My interpretation is no definite fracture or dislocation, final report below. Radiologist's Impression: Venous Doppler Study 01/02/25 20:47 Exam(s): US VENOUS LEFT LOWER EXTREMITY EXAM: US Duplex Left Lower Extremity Veins CLINICAL HISTORY: Reason for exam: pain. TECHNIQUE: Real-time duplex ultrasound scan of the left lower extremity veins integrating B-mode two-dimensional vascular structure, Doppler spectral analysis, color flow Doppler imaging and compression. COMPARISON: No relevant prior studies available. FINDINGS: Deep veins: Unremarkable. No DVT in the visualized common femoral, femoral, proximal deep femoral or popliteal veins. The veins demonstrate normal color flow, are normally compressible, with normal phasic flow and/or augmentation response. Superficial veins: No thrombus seen in the upper aspect of the greater saphenous vein. Soft tissues: Complex fluid collection seen in the left popliteal fossa which likely represents a popliteal cyst. IMPRESSION: No evidence of DVT in the left lower extremity. Electronically signed by: Torin Urrutia MD 01/02/25 23:02 PM Abdomen/Pelvis CT 01/02/25 20:48 Exam(s): CT ABDOMEN + PELVIS Without Contrast EXAM: CT Abdomen and Pelvis Without Intravenous Contrast CLINICAL HISTORY: Reason for exam: flank pain. TECHNIQUE: Axial computed tomography images of the abdomen and pelvis without intravenous contrast. CTDI is 26.54 mGy and DLP is 1268.37 mGy-cm. Automated exposure control was utilized for the study. A dose lowering technique was utilized adhering to the principles of ALARA. COMPARISON: CT December 28, 2024. FINDINGS: Heart: Heavy coronary arterial calcification. ABDOMEN: Liver: Unremarkable. Gallbladder and bile ducts: Unremarkable. No calcified stones. No ductal dilation. Pancreas: Unremarkable. No ductal dilation. Spleen: Unremarkable. No splenomegaly. Adrenals: Unremarkable. No mass. Kidneys and ureters: Unremarkable. No obstructing stones. No hydronephrosis. Stomach and bowel: Diverticula without diverticulitis. No obstruction. PELVIS: Appendix: No findings to suggest acute appendicitis. Bladder: Unremarkable. No stones. Reproductive: Hysterectomy. ABDOMEN and PELVIS: Intraperitoneal space: Unremarkable. No free air. No significant fluid collection. Bones/joints: No acute findings. Soft tissues: Unremarkable. Vasculature: No abdominal aortic aneurysm. Lymph nodes: Unremarkable. No enlarged lymph nodes. IMPRESSION: No acute findings in the abdomen or pelvis. Electronically signed by: Torin Urrutia MD 01/02/25 23:00 PM Knee X-Ray 01/02/25 22:37 Exam(s): XR LEFT KNEE, 1-2 views EXAM: XR Left Knee, 1 or 2 Views CLINICAL HISTORY: Reason for exam: pain. TECHNIQUE: Frontal and/or lateral views of the left knee. COMPARISON: December 21, 2024. FINDINGS: Bones/joints: Previous left knee replacement. The prosthetic components appear well positioned and articulated. No acute fracture. No dislocation. Soft tissues: Unremarkable. IMPRESSION: No acute findings in the left knee. Electronically signed by: Torin Urrutia MD 01/02/25 23:00 PM Lower Extremity CTA 01/02/25 23:06 Exam(s): CTA EXTREMITY LEFT LOWER W/WO Contrast IV Amt: 118 cc opti 320 EXAM: CT Angiography of the Left Lower Extremity With Intravenous Contrast CLINICAL HISTORY: Reason for exam: post op pain. TECHNIQUE: Axial computed tomographic angiography images of the left lower extremity with intravenous contrast. CTDI is 13.48 mGy and DLP is 1394. 11 mGy-cm. Automated exposure control was utilized for the study. A dose lowering technique was utilized adhering to the principles of ALARA. MIP reconstructed images were created and reviewed. CONTRAST: Patient received 118 cc opti 320 of IV contrast COMPARISON: No relevant prior studies available. FINDINGS: VASCULATURE: Left femoral/popliteal arteries: No acute findings. No occlusion, dissection, irregularity or significant stenosis. A portion of the popliteal vein at the upper knee level cannot be seen due to streak artifact from joint replacement Left calf/foot arteries: No acute findings. No occlusion or significant stenosis. LOWER EXTREMITY: Bones/joints: No acute fracture. No dislocation. Previous knee replacement. Soft tissues: Unremarkable. No abnormal contrast enhancement. IMPRESSION: No acute findings seen in the arteries of the left lower extremity. Electronically signed by: Torin Urrutia MD 01/02/25 23:51 PM Discharge Plan Visit Data Chief Complaint: Leg Injury/Pain Stated Complaint: LEG/KIDNEY PAIN ED Provider: Jonnie Méndez Discharge Problem: Acute leg pain, Acute flank pain, Acute UTI (urinary tract infection) Patient Disposition: Being Evaluated by Hospitalist Condition: Fair Forms Stand Alone Forms: My [facility] Prescriptions Prescriptions: No Action Caltrate 600 plus D 600 mg (1,500 mg)-800 unit tablet,chewable 1 tab PO BID fluticasone propion-salmeterol [Advair Diskus] 250-50 mcg/dose blister with device 1 inh INHALATION BID PRN (Reason: wheezing) (DME) blood-glucose meter [Accu-Chek Guide Glucose Meter] Misc See Rx Instructions [id number] .MEDSUPPLY Qty: 1 0RF Rx Instructions: As directed Uses Guide ME meter (DME) pen needle, diabetic [BD Ultra-Fine Shannan Pen Needle] 32 gauge x 5/32" needle See Rx Instructions .ROUTE .MEDSUPPLY Qty: 400 3RF Rx Instructions: use 4 a day to inject insulin Enbrel SureClick 50 mg/mL (1 mL) pen injector 50 mg SUBCUT WK Qty: 4 12RF cyclobenzaprine 5 mg tablet 5 mg PO TID PRN (Reason: muscle spasm) Qty: 60 3RF insulin lispro [Humalog KwikPen Insulin] 100 unit/mL insulin pen 1 - 25 unit subcut UD MDD 25 units Qty: 30 5RF Rx Instructions: To be used with sliding scale with meals. clopidogrel [Plavix] 75 mg tablet 75 mg PO QAM Qty: 90 1RF Hold Instructions: Resume on 12/19/22. Patient Comments: has holding instructions levothyroxine 50 mcg tablet 50 mcg PO QAM Qty: 90 3RF Rx Instructions: Take in AM on empty stomach with water 30 min prior to any other oral intake. pantoprazole [Protonix] 40 mg tablet,delayed release (DR/EC) 40 mg PO QAM Qty: 90 2RF ondansetron HCl 4 mg tablet 4 mg PO Q8H PRN (Reason: nausea and vomiting) Qty: 90 0RF metoprolol tartrate 25 mg tablet 25 mg PO QPM Qty: 90 1RF semaglutide 2 mg/dose (8 mg/3 mL) pen injector 2 mg subcut WK Qty: 9 3RF Rx Instructions: Inject once a week - Friday (DME) Dexcom G7 Sensor Device See Rx Instructions .Route Qty: 9 3RF Rx Instructions: Change sensor every 10 days spironolactone [Aldactone] 25 mg tablet 25 mg PO QAM Qty: 90 3RF Ultra CoQ10 75 mg capsule 75 mg PO QAM (DME) Accu-Chek Guide test strips Strip See Rx Instructions .ROUTE .MEDSUPPLY Rx Instructions: As directed check blood sugars 1 times a day (DME) lancets [Accu-Chek Fastclix Lancet Drum] Misc See Rx Instructions .ROUTE .MEDSUPPLY Rx Instructions: Test blood sugar once daily PRN fluticasone propionate [Flonase Allergy Relief] 50 mcg/actuation spray,suspension 2 spray intranasal UD PRN (Reason: Nasal Congestion) Rx Instructions: administer into each nostril ascorbate calcium (vitamin C) 500 mg tablet 500 mg PO QAM Galzin 50 mg (zinc) capsule 50 mg PO QAM albuterol sulfate [Ventolin HFA] 90 mcg/actuation HFA aerosol inhaler 2 puff INH QID PRN (Reason: shortness of breath or wheezing) Qty: 18 2RF (DME) Dexcom G7 [employer] Misc See Rx Instructions .Route Qty: 1 0RF Rx Instructions: Use to monitor blood sugars daily tamsulosin 0.4 mg capsule 0.4 mg PO DAILY Qty: 30 0RF insulin degludec [Tresiba FlexTouch U-100] 100 unit/mL (3 mL) insulin pen 8 unit subcut QPM Rx Instructions: 4units last pm Centrum Silver 0.4-300-250 mg-mcg-mcg Tablet 1 tab PO QPM atorvastatin [Lipitor] 40 mg tablet 40 mg PO QAM losartan [Cozaar] 25 mg tablet 25 mg PO QAM metoprolol tartrate 50 mg tablet 50 mg PO QAM duloxetine 60 mg capsule,delayed release(DR/EC) 60 mg PO HS Linzess 72 mcg capsule 72 mcg PO DAILY PRN (Reason: Constipation) ondansetron 4 mg tablet,disintegrating 4 mg PO Q6H PRN (Reason: nausea and vomiting) Qty: 20 0RF Referrals Referrals: Rebecca Sanchez DO [Physician] -
[2025-01-02 21:06] LABS: Alanine Aminotransferase 16 U/L (7-52); Albumin Globulin Ratio 1.4 (0.9-2); Albumin Level 4.0 gm/dl (3.4-5.0); Alkaline Phosphatase 98 U/L (34-104); Anion Gap 8 (3-11); Bilirubin,Total 0.7 mg/dl (0.2-1.0); Blood Urea Nitrogen 26 mg/dl (6-23); Calcium 9.7 mg/dl (8.6-10.3); Carbon Dioxide 22 mmol/L (21-32); Chloride 103 mmol/L (98-107); Globulin 2.8 gm/dl (2.5-4.0); Glucose 265 mg/dl (70-99(Fasting)); Lipase 32 U/L (11-82); Potassium 3.9 mmol/L (3.5-5.1); Sodium 133 mmol/L (136-145); Total Protein 6.8 gm/dl (6.0-8.3)
[2025-01-02] MEDS: MoRPHine SULFATE 4 MG/ML 1 ML CARP\\VIAL IV PRN (21:07)
[2025-01-02] MEDS: SODIUM CHLORIDE 0.9% 500 ML IV STA (21:07)
[2025-01-02] MEDS: ONDANSETRON INJ 2 MG/ML 2 ML VIAL IV STA (21:07)
[2025-01-02 21:15] LABS: Appearance Urine Cloudy (Clear); Bacteria Urine Automated 1+ (None Seen); Cast Urine Automated >20 /lpf (0-2); Glucose Urine UA Negative (Negative); RBC Urine Automated 0-2 /hpf (0-2); WBC Urine Automated >50 /hpf (0-5)
[2025-01-02 21:44] LABS: Hematocrit (blood only) 33.2 % (37.0-47.0); Hemoglobin 10.9 g/dl (12.0-16.0); Immature Granulocytes # (auto) 0.02 K/uL (0.01-0.20); Immature Granulocytes % (auto) 0.3 %; Mean Corpuscular Hemoglobin 27.7 pg (25.0-34.0); Mean Corpuscular Volume 84.5 fL (80.0-100.0); Platelet Count 246 K/uL (130-400); RDW Standard Deviation 39.8 fL (36.4-46.3); Red Blood Count 3.93 M/uL (4.20-5.40); White Blood Count 7.00 K/ul (4.8-10.8)
[2025-01-02] MEDS: cefTRIAXone SODIUM 2,000 MG/50 ML BAG IV STA (22:01)
[2025-01-02] MEDS: HYDROmorphone INJ 0.5 MG/0.5 ML SYR IV PRN (22:49)
--- NOTE | 2025-01-02 23:01 | XRay Report ---
Exam(s): XR LEFT KNEE, 1-2 views EXAM: XR Left Knee, 1 or 2 Views CLINICAL HISTORY: Reason for exam: pain. TECHNIQUE: Frontal and/or lateral views of the left knee. COMPARISON: December 21, 2024. FINDINGS: Bones/joints: Previous left knee replacement. The prosthetic components appear well positioned and articulated. No acute fracture. No dislocation. Soft tissues: Unremarkable. IMPRESSION: No acute findings in the left knee. Electronically signed by: Torin Urrutia MD 01/02/25 23:00 PM
--- NOTE | 2025-01-02 23:01 | CT Scan Report ---
Exam(s): CT ABDOMEN + PELVIS Without Contrast EXAM: CT Abdomen and Pelvis Without Intravenous Contrast CLINICAL HISTORY: Reason for exam: flank pain. TECHNIQUE: Axial computed tomography images of the abdomen and pelvis without intravenous contrast. CTDI is 26.54 mGy and DLP is 1268.37 mGy-cm. Automated exposure control was utilized for the study. A dose lowering technique was utilized adhering to the principles of ALARA. COMPARISON: CT December 28, 2024. FINDINGS: Heart: Heavy coronary arterial calcification. ABDOMEN: Liver: Unremarkable. Gallbladder and bile ducts: Unremarkable. No calcified stones. No ductal dilation. Pancreas: Unremarkable. No ductal dilation. Spleen: Unremarkable. No splenomegaly. Adrenals: Unremarkable. No mass. Kidneys and ureters: Unremarkable. No obstructing stones. No hydronephrosis. Stomach and bowel: Diverticula without diverticulitis. No obstruction. PELVIS: Appendix: No findings to suggest acute appendicitis. Bladder: Unremarkable. No stones. Reproductive: Hysterectomy. ABDOMEN and PELVIS: Intraperitoneal space: Unremarkable. No free air. No significant fluid collection. Bones/joints: No acute findings. Soft tissues: Unremarkable. Vasculature: No abdominal aortic aneurysm. Lymph nodes: Unremarkable. No enlarged lymph nodes. IMPRESSION: No acute findings in the abdomen or pelvis. Electronically signed by: Torin Ururtia MD 01/02/25 23:00 PM
--- NOTE | 2025-01-02 23:03 | Ultrasound Report ---
Exam(s): US VENOUS LEFT LOWER EXTREMITY EXAM: US Duplex Left Lower Extremity Veins CLINICAL HISTORY: Reason for exam: pain. TECHNIQUE: Real-time duplex ultrasound scan of the left lower extremity veins integrating B-mode two-dimensional vascular structure, Doppler spectral analysis, color flow Doppler imaging and compression. COMPARISON: No relevant prior studies available. FINDINGS: Deep veins: Unremarkable. No DVT in the visualized common femoral, femoral, proximal deep femoral or popliteal veins. The veins demonstrate normal color flow, are normally compressible, with normal phasic flow and/or augmentation response. Superficial veins: No thrombus seen in the upper aspect of the greater saphenous vein. Soft tissues: Complex fluid collection seen in the left popliteal fossa which likely represents a popliteal cyst. IMPRESSION: No evidence of DVT in the left lower extremity. Electronically signed by: Torin Urrutia MD 01/02/25 23:02 PM
[2025-01-02] MEDS: OPTIRAY 320 125ml IV ONE (23:28)
--- NOTE | 2025-01-02 23:52 | CT Scan Report ---
Exam(s): CTA EXTREMITY LEFT LOWER W/WO Contrast IV Amt: 118 cc opti 320 EXAM: CT Angiography of the Left Lower Extremity With Intravenous Contrast CLINICAL HISTORY: Reason for exam: post op pain. TECHNIQUE: Axial computed tomographic angiography images of the left lower extremity with intravenous contrast. CTDI is 13.48 mGy and DLP is 1394. 11 mGy-cm. Automated exposure control was utilized for the study. A dose lowering technique was utilized adhering to the principles of ALARA. MIP reconstructed images were created and reviewed. CONTRAST: Patient received 118 cc opti 320 of IV contrast COMPARISON: No relevant prior studies available. FINDINGS: VASCULATURE: Left femoral/popliteal arteries: No acute findings. No occlusion, dissection, irregularity or significant stenosis. A portion of the popliteal vein at the upper knee level cannot be seen due to streak artifact from joint replacement Left calf/foot arteries: No acute findings. No occlusion or significant stenosis. LOWER EXTREMITY: Bones/joints: No acute fracture. No dislocation. Previous knee replacement. Soft tissues: Unremarkable. No abnormal contrast enhancement. IMPRESSION: No acute findings seen in the arteries of the left lower extremity. Electronically signed by: Torin Urrutia MD 01/02/25 23:51 PM
--- NOTE | 2025-01-03 01:14 | History & Physical Report ---
Date of Service January 03, 2025 Assessment & Plan (1) Acute leg pain: (2) Status post total left knee replacement not using cement: (3) Acute hypoxemic respiratory failure: (4) Acute UTI (urinary tract infection): (5) Stage 3b chronic kidney disease (CKD): Plan Patient is a 69-year-old female with a past medical history of CKD, type II DM, asthma, depression, HLD, HTN, CVA. Patient had her left knee replaced 12/03. She presented to the ED due to sudden onset 10 out of 10 left lower extremity pain. Workup in the ED unremarkable including lower extremity CTA, knee XR, venous Doppler study. Patient is being admitted for intractable pain. She was also found to be hypoxic to 85% on room air after IV opioids for pain control. #intractable left lower extremity pain unclear etiology. Patient is s/p left knee replacement 12/[address] Deal. Lower extremity CTA, knee XR, venous Doppler study negative. No signs of acute infection. - possibly component of asymmetry with weight bearing status after procedure - consider discussing care with patients orthopedic surgeon - Dr. Deal - pain control with Tylenol as needed, Dilaudid 0.5/1mg as needed for breakthrough pain Avoid NSAIDs with CKD Voltaren gel 4 times daily PT/OT consulted #[id number]% on room air after IV opioids. Patient was clear breath sounds. Continue pulse oximetry Incentive spirometry Wean oxygen as tolerated with goal greater than 92% Caution with further IV opioid pain control #Residual UTI post nephrolithiasispatient reports kidney stone being treated for 2 weeks, AP CT 12/28 showed left 2 mm renal stone. AP CT 01/03 does not note any nephrolithiasis. UA concerning for infection with 2+ LE, > 50 WBC, 1+ bacteria; however note 11-20 epithelial cells and possibly component of contami nant. Patient asymptomatic. will continue coverage with Rocephin given questionable recently passed stone Follow urine cultures Defer further tamsulosin use #CKD - creatinine mildly increased from baseline (1.42 -> 1.71). Received 500 mL NSS bolus in the ED - continue fluid resuscitation with LR @ 100 ml/hr x 1l Promote oral hydration Repeat BMP with a.m. labs #type II DM glucose 265 on admission, PM insulin ordered as patient had missed dose. - SSI and continue home Lantus 8U at bedtime #HTNcontinue losartan, metoprolol, spironolactone #History of CVAcontinue aspirin, Plavix, statin #Asthmacontinue home inhalers #Hypothyroidismcontinue levothyroxine #GERDcontinue pantoprazole #mental healthcontinue duloxetine VTE ppx: SCDs and TEDs Dispo: med surg with continuous pulse ox Admission and Anticipated Discharge Date Admission Date: 01/03/25 History of Present Illness Chief Complaint: leg pain Primary Care Provider: XIOMY Mccurdy Patient is a 69-year-old female with a past medical history of CKD, type II DM, asthma, depression, HLD, HTN, CVA. Patient had her left knee replaced 12/03. She presented to the ED due to sudden onset 10 out of 10 left lower extremity pain. Workup in the ED unremarkable including lower extremity CTA, knee XR, venous Doppler study. Patient is being admitted for intractable pain. She was also found to be hypoxic to 85% on room air after IV opioids for pain control. Patient seen at bedside with her present. She stated last night she woke up with sudden onset left lower extremity pain and tingling. It extends from her left ankle to her knee going across the lateral side of her leg. There is a notable bruise on this leg, she denies any trauma to the area and stated it has been there for a couple of days. Patient did have her left knee replaced 12/[address] Deal however stated this pain is not in her knee. She did have a nerve block with this procedure. Patient denies any radiation to her hip or back. She stated 2 weeks ago she was diagnosed with a left-sided kidney stone after she had left-sided back pain. Diagnostic imaging 12/28 revealed a 2 mm left renal stone. AP CT 01/03 negative for any nephrolithiasis. Patient stated her pain is now well-controlled after 4 mg IV morphine x 2 and Dilaudid 0.5 mg x 2 in the ED. She denies any dyspnea, abdominal pain, dysuria, hematuria, increase in urinary frequency. She denies any nicotine or alcohol use. She is due for her evening medications including insulin and metoprolol. She is currently on dual antiplatelet therapy with aspirin and Plavix. She wishes to be full code and does have a living will. Allergies Allergy/AdvReac Type Severity Reaction Status Date / Time meloxicam Allergy Intermediate Hives Verified 12/28/24 11:34 NSAIDS (Non-Steroidal Allergy Intermediate Rash, Verified 12/28/24 11:34 Anti-Inflamma Gastrointestinal Upset pregabalin Allergy Intermediate Swelling Verified 12/28/24 11:34 all over rofecoxib Allergy Intermediate Rash, Hives Verified 12/28/24 11:34 dapagliflozin [From [facility]] AdvReac Intermediate Yeast Verified 12/28/24 11:34 Infections Home Medications Medication Instructions Recorded Confirmed Type [id number]-[id number] acid 0.4 1 tab PO QPM 03/22/18 12/28/24 History mg-lycopene 300 mcg-lutein 250 mcg tablet (Centrum Silver) calcium 600 mg (as carbonate)-vit 1 tab PO BID 08/21/18 12/28/24 History D3 20 mcg (800 unit) chewable tablet (Caltrate plus D) fluticasone 250 mcg-salmeterol 50 1 inh inhalation BID PRN wheezing 08/21/18 12/28/24 History mcg/dose blistr powdr for inhalation (Advair Diskus) blood-glucose meter (Accu-Chek #1 ea 10/08/19 12/28/24 Rx Guide Glucose Meter) blood sugar diagnostic (Accu-Chek 09/04/20 12/28/24 History Guide test strips) coenzyme Q10 75 mg capsule (Ultra 75 mg PO QAM 09/04/20 12/28/24 History CoQ10) albuterol sulfate 90 mcg/actuation 2 puff inhalation QID PRN 04/06/21 12/28/24 Rx aerosol inhaler (Ventolin HFA) shortness of breath or wheezing #18 grams ascorbate calcium (vitamin C) 500 500 mg PO QAM 04/06/21 12/28/24 History mg tablet fluticasone propionate 50 2 spray intranasal UD PRN Nasal 04/06/21 12/28/24 History mcg/actuation nasal Congestion spray,suspension (Flonase Allergy Relief) zinc acetate 50 mg (zinc) capsule 50 mg PO QAM 04/06/21 12/28/24 History (Galzin) lancets (Accu-Chek Fastclix Lancet 06/07/21 12/28/24 History Drum) Dexcom G7 Broommaking Supervisor #1 ea 08/27/22 12/28/24 Rx (blood-glucose,aligner barrel and receiver,cont) pen needle, diabetic 32 gauge x #400 ea 04/15/23 12/28/24 Rx 32" (BD Ultra-Fine Shannan Pen Needle) etanercept 50 mg/mL (1 mL) 50 mg subcut WK #4 mL 01/07/24 12/28/24 Rx subcutaneous pen injector (Enbrel SureClick) cyclobenzaprine 5 mg tablet 5 mg PO TID PRN muscle spasm #60 01/28/24 12/28/24 Rx tabs insulin lispro 100 unit/mL 1 - 25 unit (0.01 - 0.25 mL) 06/03/24 12/28/24 Rx subcutaneous pen (Humalog KwikPen subcut UD #30 mL (U-100) Insulin) clopidogrel 75 mg tablet (Plavix) 75 mg PO QAM #90 tabs 06/29/24 12/28/24 Rx levothyroxine 50 mcg tablet 50 mcg PO QAM #90 tabs 06/29/24 12/28/24 Rx pantoprazole 40 mg tablet,delayed 40 mg PO QAM #90 tabs 07/05/24 12/28/24 Rx release (Protonix) insulin degludec 100 unit/mL (3 8 unit subcut QPM 07/13/24 12/28/24 History mL) subcutaneous pen (Tresiba FlexTouch U-100 insulin) atorvastatin 40 mg tablet (Lipitor) 40 mg PO QAM 10/29/24 12/28/24 History duloxetine 60 mg capsule,delayed 60 mg PO HS 10/29/24 12/28/24 History release linaclotide 72 mcg capsule 72 mcg PO DAILY PRN Constipation 10/29/24 12/28/24 History (Linzess) losartan 25 mg tablet (Cozaar) 25 mg PO QAM 10/29/24 12/28/24 History metoprolol tartrate 50 mg tablet 50 mg PO QAM 10/29/24 12/28/24 History Dexcom G7 Sensor (blood-glucose #9 ea 11/09/24 12/28/24 Rx sensor) metoprolol tartrate 25 mg tablet 25 mg PO QPM #90 tabs 11/09/24 12/28/24 Rx ondansetron HCl 4 mg tablet 4 mg PO Q8H PRN nausea and 11/09/24 12/28/24 Rx vomiting #90 tabs semaglutide 2 mg/dose (8 mg/3 mL) 2 mg (0.75 mL) subcut WK #9 mL 11/09/24 12/28/24 Rx subcutaneous pen injector spironolactone 25 mg tablet 25 mg PO QAM #90 tabs 11/16/24 12/28/24 Rx (Aldactone) ondansetron 4 mg disintegrating 4 mg PO Q6H PRN nausea and 12/03/24 12/28/24 Rx tablet vomiting #20 tabs tamsulosin 0.4 mg capsule 0.4 mg PO DAILY #30 caps 12/28/24 12/28/24 Rx cephalexin 500 mg capsule 500 mg PO TID #15 caps 01/03/25 Rx fluconazole 150 mg tablet 150 mg PO DAILY 1 dose #1 tab 01/03/25 Rx oxycodone 5 mg tablet 5 mg PO Q4H PRN pain #7 tabs 01/03/25 Rx Past Med/Surg History Problem List (Updated 01/04/25 @ 00:07 by Carolyn Mckeon) Acute UTI (urinary tract infection) (Acute) Acute leg pain (Acute) Status post total left knee replacement not using cement Osteoarthritis of left knee Constipation Anemia of chronic disease Diabetic gastroparesis associated with type 2 diabetes mellitus Diabetic peripheral neuropathy associated with type 2 diabetes mellitus Myxoid cyst Pain in both feet Wrist pain Renal cyst rt side Erosive gastritis Rheumatoid arthritis Nausea and vomiting Heart palpitations (Acute) Obesity Stage 3b chronic kidney disease Mitral regurgitation History of colon polyps BENIGN Controlled type 2 diabetes mellitus Metabolic syndrome Vitamin D deficiency Poorly-controlled hypertension Tubular adenoma Irritable bowel syndrome with constipation Episodic peripheral vertigo Urinary incontinence New onset of headaches after age 49 Hypothyroid Medical History Paroxysmal SVT (supraventricular tachycardia) brief, asymptomatic, short-lived episodes, April 2022 per cardio records Left-sided weakness related to stoke 08/2018 [facility] - no assistive devices Adverse effect of anesthesia 2022 (*most recent surgery) - Left Wrist Cyst removal - "Heart rate and blood pressure was pretty low and they had me stay longer" procedure done at [facility] Stage 3b chronic kidney disease (CKD) [facility] Nephrology - Dr Gonzales Rheumatoid arthritis [facility] Rheumatology - Dr Sr Metabolic syndrome Hypothyroidism Heart palpitations [facility] Cardiology stable and controlled Diabetic peripheral neuropathy IBS (irritable bowel syndrome) Nausea & vomiting intermittent/chronic- follows with GI History of anemia no blood tranfusion or iron infusion History of stomach ulcers No recent issues Asthma prn inhaler breathing stable Depression Fatty liver Spinal stenosis Gastroparesis Lower extremity weakness LLE Weakness/Numbness, Chronic 2/2 lumbar radiculopathy Stroke 08/17/2018 - [facility] "Occipital Stroke" - Loss of peripheral vision, blurred vision, LUE Weakness/tingling - Head CT inconclusive, suspect subacute infarct vs mass lesion - Unable to obtain MRI d/t dorsal column stimulator (since removed) - Neurology consulted, feel likely small vessel ischemic/thrombotic stroke. Plavix initiated. - Used to follow with [facility] Neurology Seasonal allergies Heart murmur [facility] Cardiology No significant heart valve issues on 04/2022 ECHO No significant murmur noted at PAT visit 11/03/24 DM type 2 (diabetes mellitus, type 2) IDDM, dexcom 7 monitoring device in use - [facility] Endocrine GERD (gastroesophageal reflux disease) well controlled and stable Hyperlipidemia Hypokalemia "tends to run low" Decreased vision less than 50% vision loss d/t stroke Hypertension Lumbar back pain Surgical History History of foot surgery Left History of appendectomy History of removal of cyst Left wrist - [facility] History of kidney surgery (12/2022) Right robotic assisted laparoscopic renal cyst decortication/removal; lysis of adhesions S/P cataract surgery Bilateral Family history of reaction to anesthesia Mother, remote hx - slow to wake up, no need to overnight hospital stay History of tooth extraction S/P breast lumpectomy Right Nausea and vomiting after administration of anesthetic agent severe History of surgery Placement of Dorsal Column Stimulator/Removal History of arthroscopy of both shoulders History of tonsillectomy History of removal of cyst Right Breast - benign History of hysterectomy with unilateral oophorectomy History of cholecystectomy History of esophagogastroduodenoscopy (EGD) History of colonoscopy History of back surgery x4 - Hardware present H/O lumbosacral spine surgery History of root canal procedure Family History Father , Multiple CVAs starting in his 50s Diabetes Myocardial infarction Stroke Gallbladder disease Hypertension Mother , Uncertain type of heart issue Heart disease Lung cancer Cancer Hypertension Grandfather (Paternal) Diabetes Brother Diabetes Hypertension Sister Diabetes Cancer Gallbladder disease Hypertension Kidney disease Other No significant family history Denies family history of Ovarian cancer Prostate cancer Breast cancer Colorectal cancer Social History Smoking Status: Never smoker Second Hand Exposure: No; Do You Dip or Chew Tobacco: No; Hx Alcohol Use: Yes Hx Substance Use: No Preferred Language: Portuguese Communication Ability: Effective Visual Impairment: No Limitations Hearing Ability: Normal Telecommunications Network Planner Required: No Beliefs That Will Affect Care: None marital status: Current Living Situation: Spouse current occupational status: disabled 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 Feels Safe at Home: Yes Childhood Exposure to Second-Hand Smoke: No Diet: diabetic Diet Comment: diabetic caffeine: Yes (tea) during the past year weight has: other Dental Care, Regularly: Yes Physical Activity Frequency: 1-2 Times per Week Seatbelt Use: always Sunscreen Use: Yes Assistive Devices: Walker Review of Systems Review of Systems: see HPI Physical Exam Physical Exam: The patient is awake, alert and oriented 3, well developed and well nourished, normocephalic and atraumatic, in no acute distress. Non-toxic appearing. HEENT- EOMI, mucous membranes moist. Hearing grossly intact. Heart-normal S1 and S2. No murmurs, rubs or gallops. Lungs-clear bilaterally, no respiratory distress, no accessory muscle use. Abdomen-normal bowel sounds and soft. No ascites noted. Non-tender. Extremities- no clubbing, cyanosis, or edema. Healing ecchymosis to left ruth. Healing surgical site without surrounding erythema or drainage. Rheumatologic-normal range of motion. Psychiatric-normal affect. Results & Data Results & Data Vital Signs (Past 12 Hours) Vital Signs Temp Pulse Pulse Resp BP BP Pulse Ox 01/03/25 00:05 72 01/03/25 00:00 74 18 134/63 98 01/02/25 23:54 85 L 01/02/25 22:00 64 18 138/70 99 01/02/25 21:21 88 18 147/110 H 98 01/02/25 21:00 64 18 100 01/02/25 20:37 73 18 98 01/02/25 20:18 68 01/02/25 19:27 36.6 C 84 18 134/70 96 O2 Del Method O2 Flow Rate 01/03/25 00:05 01/03/25 00:00 Nasal Cannula 2 01/02/25 23:54 Room Air, Nasal Cannula 0 01/02/25 22:00 Room Air 01/02/25 21:21 Room Air 01/02/25 21:00 Room Air 01/02/25 20:37 Room Air 01/02/25 20:18 01/02/25 19:27 Room Air Laboratory Results Reviewed CBC, CMP, lipase, UA Diagnostic Findings reviewed lower extremity CTA, knee XR, abdomen pelvis CT, venous Doppler study Medications Administered EDmorphine 4 Mg IV x 2, 500 mL NSS bolus, Zofran 4 Mg IV, Rocephin 2G IV, Dilaudid 0.5 mg IV x 2 Code Status & VTE Plan Code Status full code VTE Prophylaxis Plan VTE Prophylaxis will be ordered: Yes Supervising Physician Co-Signing Physician Notes attending addendum: I have physically seen this patient, have supervised the ISSA's Left activities, and agree with the H&P unless as otherwise noted. Assessment and Plan: the patient is a 69-year-old female with a past medical history including CKD, diabetes mellitus type 2, asthma, depression, hyperlipidemia, hypertension and CVA. She is status post left total knee arthroplasty on 12/03. She presented to the emergency department due to acute onset of 10 out of 10 left lower extremity/anterior tibialis pain earlier in the day today. Evaluation in the emergency department of the left lower extremity included: Normal CT angiography, normal left x-ray of knee, normal left lower extremity venous Doppler. Patient also normal CT scan of abdomen and pelvis. Intractable left lower extremity pain Exam is like an anterior tibialis strain daytime service will discuss with orthopedic surgeon Dr. Deal tomorrow Pain control with Tylenol and Dilaudid as noted Voltaren gel topically as noted PT/OT consults Hypoxia- patient decreased to 85% on room air, following administration of IV narcotics- Pulse oximetry continue plan Incentive spirometry Monitor oxygenation closely and minimize IV pain medications Residual UTI post nephrolithiasis- She reports being treated for 2 weeks with antibiotics for urinary tract infection. current urine specimen in the ED looks probably contaminated CT 10/21 showed a left 2 mm renal stone Is possible she may have passed the stone and residual remaining irritation along the tract Ileocolic sensitivity Continue ceftriaxone 2 g IV daily begun in the ED Acute in utero superimposed on CKD- Creatinine 1.71, with base 1.42 Status post 500 mL normal saline bolus in the ED LR at 100 mL per hour x 1 L Repeat laboratories in the a.m. Hypertension- May need to hold losartan and spironolactone Continue metoprolol and the above for now History of CVA- Continue aspirin, Plavix Remaining orders and notations as noted PG Care Time/CCT Total # of Minutes Spent Total Time Spent with Patient: Total time spent is greater than 50% in coordination of care (as documented) at patient's floor/unit and/or counseling patient: Coding Level of Care Code 50698 INT INP/OBS CARE 3/75MIN Diagnoses Acute leg pain M79.606 Status post total left knee replacement not using cement Z96.652 Acute hypoxemic respiratory failure J96.01 Acute UTI (urinary tract infection) N39.0 Stage 3b chronic kidney disease (CKD) N18.32
[2025-01-03] MEDS: LANTUS PER UNIT CHARGE SQ STA (02:39)
[2025-01-03] MEDS: ACETAMINOPHEN 325 MG TAB PO STA (02:39)
[2025-01-03] MEDS: LACTATED RINGER'S 1,000 ML IV SCH (02:40)
[2025-01-03] MEDS: DICLOFENAC SOD 1% GEL 100 GM TUBE EXT STA (02:40)
[2025-01-03] MEDS: METOPROLOL TARTRATE 25 MG TAB PO STA (02:52)
[2025-01-03] MEDS ORDERED: ALBUTEROL HFA 8 GM INHALER INH PRN (03:21)
[2025-01-03] MEDS ORDERED: FLUTICASONE PROPIONATE NA SPR 16 GM BTL PRN (03:21)
[2025-01-03] MEDS ORDERED: HYDROmorphone INJ 1 MG/ML SYRINGE IV PRN (03:21)
[2025-01-03] MEDS ORDERED: GLUCOSE 40% GEL 15 GM TUBE PO PRN (03:21)
[2025-01-03] MEDS ORDERED: GLUCAGON FOR INJ 1 MG VIAL SQ PRN (03:21)
[2025-01-03] MEDS ORDERED: DEXTROSE 50% 50 ML SYRINGE IV PRN (03:21)
[2025-01-03] MEDS ORDERED: ACETAMINOPHEN 325 MG TAB PO PRN (03:21)
[2025-01-03] MEDS ORDERED: DOCUSATE SODIUM 100 MG CAP PO PRN (03:21)
[2025-01-03] MEDS ORDERED: GLUCOSE 10 TAB/TUBE PO PRN (03:21)
[2025-01-03] MEDS ORDERED: CARBOHYDRATES FOR HYPOGLYCEMIA PO PRN (03:21)
[2025-01-03] MEDS ORDERED: MELATONIN 3 MG TAB PO PRN (03:21)
[2025-01-03] MEDS ORDERED: CYCLOBENZAPRINE HCL 5 MG TAB PO PRN (03:21)
[2025-01-03 05:25] VITALS: RESP 16
[2025-01-03] MEDS: HYDROmorphone INJ 0.5 MG/0.5 ML SYR IV PRN (05:56)
[2025-01-03] MEDS: LEVOTHYROXINE SODIUM 50 MCG TABLET PO SCH (05:57)
[2025-01-03] MEDS: Patient's HEIGHT &/or WEIGHT Needed STA (05:57)
[2025-01-03] MEDS ORDERED: FLUTICASONE/VILANTEROL 200/25MCG 14 PUFFS/INHALER INH PRN (06:12)
[2025-01-03 07:11] LABS: Anion Gap 9.0 (3-11); Blood Urea Nitrogen 23.0 mg/dl (6-23); Calcium 9.1 mg/dl (8.6-10.3); Carbon Dioxide 24.0 mmol/L (21-32); Chloride 104.0 mmol/L (98-107); Creatinine Clr Calc Pharmacy 37.1 ml/min; Glucose 171.0 mg/dl (70-99(Fasting)); Potassium 3.9 mmol/L (3.5-5.1); Sodium 137.0 mmol/L (136-145)
[2025-01-03 07:21] VITALS: O2SAT 98
[2025-01-03] MEDS: CLOPIDOGREL BISULFATE 75 MG TAB PO SCH (08:23)
[2025-01-03] MEDS: ASPIRIN 81 MG ECTAB PO SCH (08:23)
[2025-01-03] MEDS: ATORVASTATIN 40 MG TAB PO SCH (08:23)
[2025-01-03] MEDS: METOPROLOL TARTRATE 50 MG TAB PO SCH (08:24)
[2025-01-03] MEDS: SPIRONOLACTONE 25 MG TAB PO SCH (08:24)
[2025-01-03] MEDS: DICLOFENAC SOD 1% GEL 100 GM TUBE EXT SCH (08:24)
[2025-01-03] MEDS: LOSARTAN POTASSIUM 25 MG TAB PO SCH (08:24)
[2025-01-03] MEDS: INSULIN ASPART PER UNIT CHARGE SC SCH (08:32)
[2025-01-03] MEDS: ONDANSETRON INJ 2 MG/ML 2 ML VIAL IV PRN (09:09)
--- NOTE | 2025-01-03 14:05 | Discharge Summary ---
Discharge Summary Date of Service January 03, 2025 Principal Dx & Hospital Course #1 = Principal Diagnosis (1) Acute leg pain: (2) Status post total left knee replacement not using cement: (3) Acute hypoxemic respiratory failure: (4) Acute UTI (urinary tract infection): (5) Stage 3b chronic kidney disease (CKD): Plan Patient is a 69-year-old female with a past medical history of CKD, type II DM, asthma, depression, HLD, HTN, CVA. Patient had her left knee replaced 12/03. She presented to the ED due to sudden onset 10 out of 10 left lower extremity pain. #intractable left lower extremity pain unclear etiology. Patient is s/p left knee replacement 12/[address] Deal. Lower extremity CTA, knee XR, venous Doppler study negative. No signs of acute infection. possibly component of asymmetry with weight bearing status after procedure Reached out to Dr. Deal 01/03 to make him aware via [employer] pain control with Tylenol as needed, Oxycodone 5mg prn q 4h on dc for breakthrough pain. PT/OT consulted --> recommended continuing home PT on discharge. #hypoxia - resolved 85% on room air after IV opioids. Patient was clear breath sounds. On room air prior to dc #Residual UTI post nephrolithiasis patient reports kidney stone being treated for 2 weeks, AP CT 12/28 showed left 2 mm renal stone. AP CT 01/03 does not note any nephrolithiasis. UA concerning for infection & UC pending. s/p IV Rocephin, send home on Keflex 500mg TID x 5 days #CKD creatinine mildly increased from baseline on admission at 1.71 s/p 500cc NSS & 1L LR --> improvement to 1.48 which is within her baseline of 1..3-1.5 #type II DM Resume home regimen on discharge. #HTNcontinue losartan, metoprolol, spironolactone #History of CVAcontinue aspirin, Plavix, statin #Asthmacontinue home inhalers #Hypothyroidismcontinue levothyroxine #GERDcontinue pantoprazole #mental healthcontinue duloxetine Discharged home 01/03. Admission HPI Per Admitting Provider Patient is a 69-year-old female with a past medical history of CKD, type II DM, asthma, depression, HLD, HTN, CVA. Patient had her left knee replaced 12/03. She presented to the ED due to sudden onset 10 out of 10 left lower extremity pain. Workup in the ED unremarkable including lower extremity CTA, knee XR, venous Doppler study. Patient is being admitted for intractable pain. She was also found to be hypoxic to 85% on room air after IV opioids for pain control. Patient seen at bedside with her present. She stated last night she woke up with sudden onset left lower extremity pain and tingling. It extends from her left ankle to her knee going across the lateral side of her leg. There is a notable bruise on this leg, she denies any trauma to the area and stated it has been there for a couple of days. Patient did have her left knee replaced 12/[address] Deal however stated this pain is not in her knee. She did have a nerve block with this procedure. Patient denies any radiation to her hip or back. She stated 2 weeks ago she was diagnosed with a left-sided kidney stone after she had left-sided back pain. Diagnostic imaging 12/28 revealed a 2 mm left renal stone. AP CT 01/03 negative for any nephrolithiasis. Patient stated her pain is now well-controlled after 4 mg IV morphine x 2 and Dilaudid 0.5 mg x 2 in the ED. She denies any dyspnea, abdominal pain, dysuria, hematuria, increase in urinary frequency. She denies any nicotine or alcohol use. She is due for her evening medications including insulin and metoprolol. She is currently on dual antiplatelet therapy with aspirin and Plavix. She wishes to be full code and does have a living will. Discharge Exam General: NAD, VS: BP 115/74; P65; T36.5C Resp: normal respiratory effort Extremities: Moves all extremities, mild edema of L knee joint. surgical scar present on L knee secondary to knee replacement. No tenderness to palpation of LLE. Neuro: A&O x3 Skin: intact, no lesions noted Discharge Plan Discharge Items Patient Disposition: Home - Self-Care Reason For Visit: INTRACTABLE LEG PAIN, HYPOXIA, UTI Discharge Diagnosis: left leg pain, UTI Condition on Discharge: Fair Activity: Resume your previous activity Non-emergency contact: Primary Care Provider and Surgeon Call non-emergency contact if: you have any medication questions, your symptoms worsen and you have a fever Follow-up/Referrals: Dakota Morel CRNP [Primary Care Provider] - 01/11/25 11:00 am Hoang Deal DO [Physician] - Diet: Regular Addtl Attending Provider Instructions: Mrs. Morales, You were recently hospitalized secondary to left leg pain. You underwent a thorough workup that rule out any blood clots or fractures in your leg. The pain is thought to be secondary to overuse. Your urine was also positive for an i nfection and you were given an antibiotic. Medications: Your medication list has been reviewed and reconciled upon discharge to ensure accuracy and continuity of care. An updated list of all your medications is included with your hospital discharge paperwork. Please review this list closely, and make note of any changes. Please take Tylenol 1000mg every 8 hours scheduled. For breakthrough pain please use Oxycodone 5mg as needed every 4 hours. Please take Keflex 500mg three times daily for your urinary tract infection. A one time dose of Fluconazole has been sent to your pharmacy for a yeast infection. This medication will work in your system over several days. Take your medications as instructed; do not skip a dose of your medicines. Make sure all of your doctors know every medicine you are taking (including ulyd-wmc-bwyfrmy medicines, vitamins, and supplements). Call your primary care provider before taking any new medicines (including over- the-counter medicines, vitamins, and supplements), because some of these may interact with your current medications, or may make your symptoms worse. Tell your primary care provider if you cannot afford your medications. Activity: You can do normal everyday activities as your body allows. Take rest breaks if you feel tired. Do not overexert. Stop activity if you have pain, shortness of breath or feel dizzy. Follow-up appointments: Make an appointment with your primary care physician within one week of discharge. A copy of this summary will be sent to them. Every time you see your primary care physician, or any other doctor, bring your medication list, and a list of questions. Please follow up with your surgeon, Dr. Deal closely regarding your pain. CONTACT YOUR PRIMARY CARE PROVIDER if you experience any of the following: Shortness of breath or difficulty breathing Fevers or chills Feeling tired with normal activity or experiencing dizziness or fainting Difficulty following your treatment plan, or difficulty taking medications CALL 911 OR GO TO THE EMERGENCY DEPARTMENT if you experience any of the following: Severe abdominal pain or nausea/vomiting Severe chest pain, or chest pain that radiates (moves) to your jaw or arm Sudden, severe shortness of breath or difficulty breathing Thank you for allowing us to participate in your care. Pending Studies at Discharge: Yes Studies:: final UC results Stand-Alone Forms: My [facility], Smoking Cessation Medications and DC Order Prescriptions: New oxycodone 5 mg tablet 5 mg PO Q4H PRN (Reason: pain) Qty: 7 0RF cephalexin 500 mg capsule 500 mg PO TID Qty: 15 0RF fluconazole 150 mg tablet 150 mg PO DAILY Qty: 1 0RF Rx Instructions: administer on day 1 of therapy Continued Caltrate 600 plus D 600 mg (1,500 mg)-800 unit tablet,chewable 1 tab PO BID fluticasone propion-salmeterol [Advair Diskus] 250-50 mcg/dose blister with device 1 inh INHALATION BID PRN (Reason: wheezing) Enbrel SureClick 50 mg/mL (1 mL) pen injector 50 mg SUBCUT WK Qty: 4 12RF cyclobenzaprine 5 mg tablet 5 mg PO TID PRN (Reason: muscle spasm) Qty: 60 3RF insulin lispro [Humalog KwikPen Insulin] 100 unit/mL insulin pen 1 - 25 unit subcut UD MDD 25 units Qty: 30 5RF Rx Instructions: To be used with sliding scale with meals. clopidogrel [Plavix] 75 mg tablet 75 mg PO QAM Qty: 90 1RF Hold Instructions: Resume on 12/19/22. Patient Comments: has holding instructions levothyroxine 50 mcg tablet 50 mcg PO QAM Qty: 90 3RF Rx Instructions: Take in AM on empty stomach with water 30 min prior to any other oral intake. pantoprazole [Protonix] 40 mg tablet,delayed release (DR/EC) 40 mg PO QAM Qty: 90 2RF ondansetron HCl 4 mg tablet 4 mg PO Q8H PRN (Reason: nausea and vomiting) Qty: 90 0RF metoprolol tartrate 25 mg tablet 25 mg PO QPM Qty: 90 1RF semaglutide 2 mg/dose (8 mg/3 mL) pen injector 2 mg subcut WK Qty: 9 3RF Rx Instructions: Inject once a week - Friday spironolactone [Aldactone] 25 mg tablet 25 mg PO QAM Qty: 90 3RF Ultra CoQ10 75 mg capsule 75 mg PO QAM fluticasone propionate [Flonase Allergy Relief] 50 mcg/actuation spray,suspension 2 spray intranasal UD PRN (Reason: Nasal Congestion) Rx Instructions: administer into each nostril ascorbate calcium (vitamin C) 500 mg tablet 500 mg PO QAM Galzin 50 mg (zinc) capsule 50 mg PO QAM albuterol sulfate [Ventolin HFA] 90 mcg/actuation HFA aerosol inhaler 2 puff INH QID PRN (Reason: shortness of breath or wheezing) Qty: 18 2RF tamsulosin 0.4 mg capsule 0.4 mg PO DAILY Qty: 30 0RF insulin degludec [Tresiba FlexTouch U-100] 100 unit/mL (3 mL) insulin pen 8 unit subcut QPM Rx Instructions: 4units last pm Centrum Silver 0.4-300-250 mg-mcg-mcg Tablet 1 tab PO QPM atorvastatin [Lipitor] 40 mg tablet 40 mg PO QAM losartan [Cozaar] 25 mg tablet 25 mg PO QAM metoprolol tartrate 50 mg tablet 50 mg PO QAM duloxetine 60 mg capsule,delayed release(DR/EC) 60 mg PO HS Linzess 72 mcg capsule 72 mcg PO DAILY PRN (Reason: Constipation) ondansetron 4 mg tablet,disintegrating 4 mg PO Q6H PRN (Reason: nausea and vomiting) Qty: 20 0RF No Action (DME) blood-glucose meter [Accu-Chek Guide Glucose Meter] [facility] [place] [id number] .MEDSUPPLY Qty: 1 0RF Rx Instructions: As directed Uses Guide ME meter (DME) pen needle, diabetic [BD Ultra-Fine Shannan Pen Needle] 32 gauge x 5/32" needle See Rx Instructions .ROUTE .MEDSUPPLY Qty: 400 3RF Rx Instructions: use 4 a day to inject insulin (DME) Dexcom G7 Sensor Device See Rx Instructions .Route Qty: 9 3RF Rx Instructions: Change sensor every 10 days (DME) Accu-Chek Guide test strips Strip See Rx Instructions .ROUTE .MEDSUPPLY Rx Instructions: As directed check blood sugars 1 times a day (DME) lancets [Accu-Chek Fastclix Lancet Drum] [facility] [place] .ROUTE .MEDSUPPLY Rx Instructions: Test blood sugar once daily PRN (DME) Dexcom G7 Hot Dimpling Machine Operator Misc See Rx Instructions .Route Qty: 1 0RF Rx Instructions: Use to monitor blood sugars daily Discharge Orders: Discharge Order (Routine); Ordered 01/03/25 Ordered By: Daniela Hernández Admission Data Admit Date/Time: 01/03/25 01:08 Attending Provider: Torin Milligan Admit Provider: Kain Cline Primary Care Provider: Dakota Morel Hospital Stay Data Diagnostic Imagining Performed 01/02/25 20:47 US venous doppler LE LT Stat 01/02/25 20:48 CT abd pelvis wo con Stat 01/02/25 23:06 CT angio LE LT w inc wo if don Stat Pending Results Patient Have Any Pending Studies at Discharge: Yes Discharge Instructions Given to Patient (Per Discharging Provider) Dheeraj Franz were recently hospitalized secondary to left leg pain. You underwent a thorough workup that rule out any blood clots or fractures in your leg. The pain is thought to be secondary to overuse. Your urine was also positive for an infection and you were given an antibiotic. Medications: Your medication list has been reviewed and reconciled upon discharge to ensure accuracy and continuity of care. An updated list of all your medications is included with your hospital discharge paperwork. Please review this list closely, and make note of any changes. Please take Tylenol 1000mg every 8 hours scheduled. For breakthrough pain please use Oxycodone 5mg as needed every 4 hours. Please take Keflex 500mg three times daily for your urinary tract infection. A one time dose of Fluconazole has been sent to your pharmacy for a yeast infection. This medication will work in your system over several days. Take your medications as instructed; do not skip a dose of your medicines. Make sure all of your doctors know every medicine you are taking (including bfcf-mbh-zhkhqti medicines, vitamins, and supplements). Call your primary care provider before taking any new medicines (including over- the-counter medicines, vitamins, and supplements), because some of these may interact with your current medications, or may make your symptoms worse. Tell your primary care provider if you cannot afford your medications. Activity: You can do normal everyday activities as your body allows. Take rest breaks if you feel tired. Do not overexert. Stop activity if you have pain, shortness of breath or feel dizzy. Follow-up appointments: Make an appointment with your primary care physician within one week of discharge. A copy of this summary will be sent to them. Every time you see your primary care physician, or any other doctor, bring your medication list, and a list of questions. Please follow up with your surgeon, Dr. Deal closely regarding your pain. CONTACT YOUR PRIMARY CARE PROVIDER if you experience any of the following: Shortness of breath or difficulty breathing Fevers or chills Feeling tired with normal activity or experiencing dizziness or fainting Difficulty following your treatment plan, or difficulty taking medications CALL 911 OR GO TO THE EMERGENCY DEPARTMENT if you experience any of the following: Severe abdominal pain or nausea/vomiting Severe chest pain, or chest pain that radiates (moves) to your jaw or arm Sudden, severe shortness of breath or difficulty breathing Thank you for allowing us to participate in your care. Supervising Physician Co-Signing Physician Notes The patient was not seen by me. The chart was reviewed. Case discussed with TIRSO Dykes. Agree with assessment and plan Total Time Total Time Spent Total Time Spent (In Minutes): 45 Total Time Includes: Examination of the Patient, Discharge Planning, Medication Reconciliation and Communication With Other Providers Coding Level of Care Code 06971 INP/OBS DISCH >30 MIN Diagnoses Acute leg pain M79.606 Status post total left knee replacement not using cement Z96.652 Acute hypoxemic respiratory failure J96.01 Acute UTI (urinary tract infection) N39.0 Stage 3b chronic kidney disease (CKD) N18.32
[2025-01-03 14:39] VITALS: BP 115/74; PULSE 65; TEMP 97.7
[2025-01-03] MEDS ORDERED: LANTUS PER UNIT CHARGE SQ SCH (21:00)
[2025-01-03] MEDS ORDERED: METOPROLOL TARTRATE 25 MG TAB PO SCH (21:00)
[2025-01-03] MEDS ORDERED: cefTRIAXone SODIUM 2,000 MG/50 ML BAG IV SCH (21:30)
[2025-01-03] MEDS ORDERED: cefTRIAXone SODIUM 1,000 MG/50 ML BAG IV SCH (21:30)
== END 2025-01-03 16:36 | disposition home or self-care (01) ==
LOC: ED 19:21 → 3W 19:21 → SUATTDRO 01-03 01:08 → 3W 01-03 02:54